=== PATIENT | male | born 1930 | race Caucasian/White ===

== ENCOUNTER 2016-04-21 13:03 | Emergency (ER) | payer MEDICARE, OTHER ==
[~2016-04-21] VITALS: Ht 162.6 cm; Wt 75.0 kg
[2016-04-21 13:05] VITALS: BP 209/98; PULSE 78; RESP 16; TEMP 98.1; O2SAT 98
[2016-04-21] MEDS ORDERED: METF500T PO (15:38)
[2016-04-21] MEDS ORDERED: LISI10TA3 PO (15:38)
[2016-04-21] MEDS ORDERED: SIMV20TA PO (15:38)
[2016-04-21] MEDS ORDERED: SODIUM CHLORIDE 0.9% FLUSH 5 ML FLUSH IVF PRN (17:00)
--- NOTE | 2016-04-21 17:04 | PD ---
HPI Chief Complaint: Pain: Acute or Chronic Time Seen by Provider: 16:53 Travel History International Travel<30 days: No Contact w/Intl Traveler<30days: No Traveled to known affect area: No History of Present Illness HPI Patient is an 85-year-old male who is Mohawk-speaking only patient with a history of NIDDM, hypertension, HLD and possible CVA brought by his daughter presenting with 2 month history of neck and back pain. He feels like he has pain at the base of his skull/top of his neck but intermittently shoots down his entire back. Sometimes it radiates into the buttocks on either side and down the posterior leg to about the knee. This can last for several minutes. Pain is sharp, shooting sometimes burning. It is alleviated by walking, some twisting and bending motions do seem to make it worse. He denies trauma and injury. The patient has not taken any medicines in attempts to palliate and has not seen his PCP, Dr. Santana, for this complaint. He denies bowel or bladder dysfunction, saddle anesthesia, weakness in all 4 extremities. Occasional paresthesias in the feet bilaterally. He denies chest pain, shortness of breath, cough, fever and wheezing. Denies headache and syncope. He occasionally has a nonspecific dizziness when waking in the morning before taking his blood pressure medications which resolves. Denies a history of CAD. He has a mass on the posterior left occiput since and was told it is benign. He refuses cell changer, prefers to have his daughter translate. PFSH Past Medical History High Cholesterol: Yes Diabetes: Yes Patient Takes Glucophage: Yes Hypertension: Yes Influenza Vaccination: Yes Social History Alcohol Use: No Tobacco Use: No Substance Use: No Allergies-Medications (Allergen,Severity, Reaction): Coded Allergies: No Known Allergies (Unverified , 04/21/16) Reported Meds & Prescriptions Reported Meds & Active Scripts Active Robaxin (Methocarbamol) 500 Mg Tab 500 Mg PO TID PRN Reported Lisinopril Unknown Strength Tab Unknown Dose PO DAILY Simvastatin Unknown Strength Tab Unknown Dose PO DAILY Metformin (Metformin HCl) Unknown Strength Tab Unknown Dose PO BIDPC With meals Review of Systems General / Constitutional: No: Fever, Chills Eyes: No: Blurred Vision, Pain HENT: Positive: Lightheadedness, Neck Pain, Masses (left occiput, chronic), No : Headaches, Vertigo, Sore Throat, Neck Stiffness, Earache Cardiovascular: No: Chest Pain or Discomfort, Palpitations, Tachycardia, Syncope, Dyspnea on exertion, Edema, Claudication Respiratory: No: Cough, Shortness of Breath, Wheezing, Orthopnea Gastrointestinal: No: Nausea, Vomiting, Abdominal Pain, Constipation, Changes in Bowel Habits Genitourinary: No: Incontinence Musculoskeletal: Positive: Myalgias (per the history of present illness), Pain (neck and back), No: Arthralgias, Limited ROM, Weakness, Edema Skin: No Rash Neurologic: Positive: Dizziness, Paresthesia (bilateral feet, intermittent), No: Weakness, Syncope, Focal Abnormalities, Coordination Problem, Tremor, Headache, Change in Mentation, Slurred Speech, Seizures, Sensory Disturbance Physical Exam Narrative GENERAL: Well-developed and well-nourished adult male in no acute distress. SKIN: Warm and dry. Good turgor without tenting. HEAD: Normocephalic and atraumatic. 4 cm well-circumscribed soft slightly mobile mass in the left occiput without erythema, induration or warmth or tenderness. EYES: PERRL bilaterally, 5mm. EOMI bilaterally. No injection or icterus present. No proptosis. Lids without edema or erythema. ENT: Buccal mucosa pink and moist. Oropharynx free of erythema, tonsillar hypertrophy, masses, swelling, asymmetry and exudates. Uvula midline and airway patent. NECK: Supple, no midline tenderness, crepitus or step-offs. Trachea midline, no JVD. No cervical or facial lymphadenopathy. CARDIOVASCULAR: Regular rate and rhythm without murmurs, rubs, clicks or gallops. Radial and posterior tibial pulses 2+ bilaterally. No pedal edema. RESPIRATORY: Clear to auscultation bilaterally with symmetrical rise and fall, no distress or use of accessory muscles. GASTROINTESTINAL: Non-tender, non-distended. Normal bowel sounds all 4 quadrants. No masses or organomegaly present. MUSCULOSKELETAL: Evaluation of the thoracic, lumbar and sacral spine reveals no edema or discoloration or skin lesions. No thoracic, lumbar, sacral or paraspinous tenderness to palpation. No gait disturbances. Patient freely moving all four extremities spontaneously. Extremities without clubbing, cyanosis, or edema. No obvious deformities. NEUROLOGIC: CN II-XII grossly intact. Awake and alert. Negative Romberg test. Strength 5/5 bilateral shoulder flexion, shoulder extension, shoulder abduction , shoulder adduction, elbow flexion, elbow extension. Sensation intact and strength 5/5 over radial, median, and ulnar nerve distributions bilaterally.Sensation intact L2-S2 bilaterally. Strength 5/5 in hip flexion, hip extension, knee flexion, knee extension, plantar flexion, dorsiflexion bilaterally. Bilateral triceps, biceps, brachioradialis DTRs 1+; patellar and Achilles DTRs 2+. Negative bilateral Loraine sign. Downgoing Babinskis bilaterally. Normal speech. PSYCHIATRIC: Appropriate mood and affect. Data Data Last Documented VS Vital Signs Date Time Temp Pulse Resp B/P Pulse Ox O2 Delivery O2 Flow Rate FiO2 04/21/16 18:46 18 04/21/16 18:46 63 189/87 99 Room Air 181/83 04/21/16 13:05 98.1 Orders Electrocardiogram (04/21/16 16:48) Ckmb (Isoenzyme) Profile (04/21/16 16:48) Complete Blood Count With Diff (04/21/16 16:48) Comprehensive Metabolic Panel (04/21/16 16:48) Magnesium (Mg) (04/21/16 16:48) Prothrombin Time / Inr (Pt) (04/21/16 16:48) Act Partial Throm Time (Ptt) (04/21/16 16:48) Troponin I (04/21/16 16:48) Ecg Monitoring (04/21/16 16:48) Bilateral Bp Monitoring (04/21/16 16:48) Oximetry (04/21/16 16:48) Sodium Chloride 0.9% Flush (Ns Flush) (04/21/16 17:00) Chest, Pa & Lat (04/21/16 16:48) Creatine Kinase (Cpk) (04/21/16 16:48) Ct Brain W/O Iv Contrast(Rout) (04/21/16 16:48) Ct Cerv Spine W/O Contrast (04/21/16 16:48) Labs Laboratory Tests Test 04/21/16 17:25 White Blood Count 6.4 TH/MM3 Red Blood Count 4.92 MIL/MM3 Hemoglobin 15.6 GM/DL Hematocrit 45.9 % Mean Corpuscular Volume 93.2 FL Mean Corpuscular Hemoglobin 31.7 PG Mean Corpuscular Hemoglobin 34.1 % Concent Red Cell Distribution Width 13.4 % Platelet Count 204 TH/MM3 Mean Platelet Volume 7.4 FL Neutrophils (%) (Auto) 51.3 % Lymphocytes (%) (Auto) 35.0 % Monocytes (%) (Auto) 8.1 % Eosinophils (%) (Auto) 5.0 % Basophils (%) (Auto) 0.6 % Neutrophils # (Auto) 3.3 TH/MM3 Lymphocytes # (Auto) 2.3 TH/MM3 Monocytes # (Auto) 0.5 TH/MM3 Eosinophils # (Auto) 0.3 TH/MM3 Basophils # (Auto) 0.0 TH/MM3 CBC Comment DIFF FINAL Differential Comment Prothrombin Time 10.2 SEC Prothromb Time International 0.9 RATIO Ratio Activated Partial 26.1 SEC Thromboplast Time Sodium Level 136 MEQ/L Potassium Level 4.0 MEQ/L Chloride Level 102 MEQ/L Carbon Dioxide Level 27.4 MEQ/L Anion Gap 7 MEQ/L Blood Urea Nitrogen 11 MG/DL Creatinine 0.83 MG/DL Estimat Glomerular Filtration 88 ML/MIN Rate Random Glucose 178 MG/DL Calcium Level 9.0 MG/DL Magnesium Level 2.0 MG/DL Total Bilirubin 0.5 MG/DL Aspartate Amino Transf 16 U/L (AST/SGOT) Alanine Aminotransferase 23 U/L (ALT/SGPT) Alkaline Phosphatase 100 U/L Total Creatine Kinase 74 U/L Troponin I LESS THAN 0.02 NG/ML Total Protein 8.9 GM/DL Albumin 4.3 GM/DL MDM Medical Decision Making Medical Screen Exam Complete: Yes Emergency Medical Condition: Yes Interpretation(s) Laboratory Tests Test 04/21/16 17:25 White Blood Count 6.4 TH/MM3 (4.0-11.0) Red Blood Count 4.92 MIL/MM3 (4.50-5.90) Hemoglobin 15.6 GM/DL (13.0-17.0) Hematocrit 45.9 % (39.0-51.0) Mean Corpuscular Volume 93.2 FL (80.0-100.0) Mean Corpuscular Hemoglobin 31.7 PG (27.0-34.0) Mean Corpuscular Hemoglobin 34.1 % Concent (32.0-36.0) Red Cell Distribution Width 13.4 % (11.6-17.2) Platelet Count 204 TH/MM3 (150-450) Mean Platelet Volume 7.4 FL (7.0-11.0) Neutrophils (%) (Auto) 51.3 % (16.0-70.0) Lymphocytes (%) (Auto) 35.0 % (9.0-44.0) Monocytes (%) (Auto) 8.1 % (0.0-8.0) Eosinophils (%) (Auto) 5.0 % (0.0-4.0) Basophils (%) (Auto) 0.6 % (0.0-2.0) Neutrophils # (Auto) 3.3 TH/MM3 (1.8-7.7) Lymphocytes # (Auto) 2.3 TH/MM3 (1.0-4.8) Monocytes # (Auto) 0.5 TH/MM3 (0-0.9) Eosinophils # (Auto) 0.3 TH/MM3 (0-0.4) Basophils # (Auto) 0.0 TH/MM3 (0-0.2) CBC Comment DIFF FINAL Differential Comment Prothrombin Time 10.2 SEC (9.8-11.6) Prothromb Time International 0.9 RATIO Ratio Activated Partial 26.1 SEC Thromboplast Time (24.3-30.1) Sodium Level 136 MEQ/L (136-145) Potassium Level 4.0 MEQ/L (3.5-5.1) Chloride Level 102 MEQ/L (98-107) Carbon Dioxide Level 27.4 MEQ/L (21.0-32.0) Anion Gap 7 MEQ/L (5-15) Blood Urea Nitrogen 11 MG/DL (7-18) Creatinine 0.83 MG/DL (0.60-1.30) Estimat Glomerular Filtration 88 ML/MIN (>89) Rate Random Glucose 178 MG/DL (74-106) Calcium Level 9.0 MG/DL (8.5-10.1) Magnesium Level 2.0 MG/DL (1.5-2.5) Total Bilirubin 0.5 MG/DL (0.2-1.0) Aspartate Amino Transf 16 U/L (15-37) (AST/SGOT) Alanine Aminotransferase 23 U/L (12-78) (ALT/SGPT) Alkaline Phosphatase 100 U/L (45-117) Total Creatine Kinase 74 U/L (39-308) Troponin I LESS THAN 0.02 NG/ML (0.02-0.05) Total Protein 8.9 GM/DL (6.4-8.2) Albumin 4.3 GM/DL (3.4-5.0) Last [address] 04/21/161647 Signed Impressions: Service Date/Time: Thursday, April 21, 2016 17:28 - CONCLUSION: Unremarkable exam for age. Danial Estes MD Chest X-Ray 04/21/161647 Signed Impressions: Service Date/Time: Thursday, April 21, 2016 17:05 - CONCLUSION: Numerous tiny nodular opacities in both lungs. The differential diagnosis includes granulomatous disease. Metastatic disease is less likely. Danial Estes MD Cervical Spine CT 04/21/161647 Signed Impressions: Service Date/Time: Thursday, April 21, 2016 17:28 - CONCLUSION: 1. 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 2. Advanced degenerative changes at C3/4, C4/5, C5/6 and C6/7. 3. No acute fracture is seen. 4. Individual levels are dictated in detail above. Yaakov Ochoa MD Differential Diagnosis Back strain versus muscle spasm versus DDD versus HNP versus MS versus ACS versus CVA versus aortic dissection Narrative Course Workup was initiated in triage. Once a medical bed becomes available patient will be transferred and care will be assumed by the next provider. Patient is an 85-year-old male with a history of NIDDM, hypertension, hyperlipidemia and possible CVA in the past presenting with 2 month history of pain from the base of his skull radiating down the entire back and into the legs. It is never both legs the same time but will otherwise be in the left or right. He has some intermittent paresthesias in his feet. No focal deficits by history or physical, neurovascularly intact. He is resting comfortably and currently has no symptoms. No tenderness with palpation. He expresses relief with activity, no prior workup or OTC medications for this. This most likely is musculoskeletal although it has been on odd presentation. Discussed with Dr. Chino who agrees workup for ACS, metabolic disturbance and obtaining CT of the head and C-spine is appropriate for initial workup and patient can be reevaluated and medical bed. Patient was transferred to a medical bed and the workup was completed. EKG shows sinus rhythm with rate of 59. Normal intervals and axis. Slight T-wave flattening in V6 but otherwise unremarkable. CBC unremarkable, metabolic panel shows creatinine 0.83, glucose 178, troponin less than 0.02, protein 8.9. Chest x-ray shows numerous tiny nodular opacities in both lungs, differential includes granulomatous disease versus metastatic disease which is less likely. The patient did stop smoking at the age of 37 but lived in [place] for many years , no history of TB. CT of the brain unremarkable. CT of the C-spine shows a Klippel-Feil deformity with congenital fusion at the C2 and 3 level with straightening of the cervical lordosis. There are advanced degenerative changes at multiple levels lower in the C-spine with broad-based disc bulging eccentric towards the right at C4 and 5. Interestingly the patient has no upper extremity symptoms. As previous he stated he has neurovascularly intact. On further discussion he states that the symptoms occur mainly at night when he is lying flat and when he gets up and walks they improved. His symptoms do not occur otherwise. I spoke with the radiologist Dr. Ochoa who states that there is no significant stenosis at C2-C3 level. Shift change had occurred and I discussed the patient with Dr. Zamora who also examined the patient. We discussed all findings and she agrees that he is neurovascularly intact and should have muscle relaxant therapy and follow-up with his PCP on Sunday for both the neck/back pain and lung nodules. She states although there is no personal history of TB being from [place] he likely has had exposure and developed granulomatous as a response. Either way he will follow up outpatient and have CT performed. Patient given prescription for Robaxin and recommended rest, heat therapy.See discharge paperwork for further instructions. The plan was discussed with the patient who acknowledged their understanding and agreement. Reinforced the follow-up with primary care is critically important. Patient instructed on emergent conditions that should prompt return to ED. Diagnosis Primary Impression: Neck pain Additional Impressions: Back pain Qualified Code: M54.9 - Acute bilateral back pain, unspecified back location Klippel-Feil deformity Lung nodule, multiple Patient Instructions: Back Pain (ED), General Instructions, Neck Pain (ED) Additional Instructions: Rest for 24 hours, then gradually resume normal activity Avoid maneuvers or positions that aggravate the pain Avoid twisting/bending or lifting heavy items Take medications as prescribed Your medications may cause drowsiness. Do not take with alcohol or sedatives. Do not operate a motor vehicle or heavy machinery while on medication. Warm, moist heat applied to painful areas hourly as needed Try to massage and stretch affected muscles after applying heat to speed recovery Follow-up with PCP in 2-3 days to check on progress and discuss additional imaging including MRI for the neck and CT for the lung nodules Return to ED for any acute worsening of symptoms including weakness or numbness or loss of bowel or bladder control Med/Other Pt SpecificInfo: Prescription(s) given Scripts Methocarbamol (Robaxin)500 Mg [id number] Mg PO TID PRN (SPASM) #15 TAB Ref 0 Prov:Britni Zamora MD 04/21/16 Disposition: 01 DISCHARGE HOME Condition: Stable Jose Morgan III Apr 21, 2016 17:04
--- NOTE | 2016-04-21 17:18 | RADRPT ---
EXAM DATE/TIME: 04/21/2016 17:05 [facility] COMPARISON: No previous studies available for comparison. INDICATIONS : Chest pain for 2 days with no known injury MEDICAL HISTORY : None. SURGICAL HISTORY : None. ENCOUNTER: Initial ACUITY: 2 days PAIN SCORE: 6/10 LOCATION: Bilateral chest FINDINGS: PA and lateral views of the chest were obtained. Both views are Midinspiratory with crowding of the l arnoldo vasculature. There is no focal consolidation. There are numerous subtle nodular opacities in both lungs. The heart size is at the upper limits of normal with no perihilar edema. The bony thorax is i ntact. CONCLUSION: Numerous tiny nodular opacities in both lungs. The differential diagnosis includes gr anulomatous disease. Metastatic disease is less likely. Danial Estes MD on April 21, 2016 at 17:15 Board Certified Radiologist. This report was verified electronically.
--- NOTE | 2016-04-21 17:35 | RADRPT ---
EXAM DATE/TIME: 04/21/2016 17:28 [facility] COMPARISON: No previous studies available for comparison. INDICATIONS : Posterior cephalgia for 2 months. RADIATION DOSE: 33.26 CTDIvol (mGy) MEDICAL HISTORY : Hypertension. SURGICAL HISTORY : None. ENCOUNTER: Initial ACUITY: 2 months PAIN SCALE: 6/10 LOCATION: cranial Posterior TECHNIQUE: Multiple contiguous axial images were obtained of the head. Using automated exposure control and adj ustment of the mA and/or kV according to patient size, radiation dose was kept as low as reasonably a chievable to obtain optimal diagnostic quality images. FINDINGS: CEREBRUM: The ventricles are normal for age. No evidence of midline shift, mass lesion, hemorrhage or acute in farction. No extra-axial fluid collections are seen. POSTERIOR FOSSA: The cerebellum and brainstem are intact. The 4th ventricle is midline. The cerebellopontine angle i s unremarkable. EXTRACRANIAL: The visualized portion of the orbits is intact. SKULL: The calvaria is intact. No evidence of skull fracture. CONCLUSION: Unremarkable exam for age. Danial Estes MD on April 21, 2016 at 17:33 Board Certified Radiologist. This report was verified electronically.
--- NOTE | 2016-04-21 17:55 | RADRPT ---
EXAM DATE/TIME: 04/21/2016 17:28 [facility] COMPARISON: No previous studies available for comparison. INDICATIONS : Posterior cephalgia for 2 months. RADIATION DOSE: 18.74 CTDIvol (mGy) MEDICAL HISTORY : Hypertension. SURGICAL HISTORY : None. ENCOUNTER: Initial ACUITY: 2 months PAIN SCALE: 5/10 LOCATION: neck TECHNIQUE: Volumetric scanning of the cervical spine was performed. Multiplanar reconstructions in the sagittal, coronal and oblique axial planes were performed. Using automated exposure control and adjustment o f the mA and/or kV according to patient size, radiation dose was kept as low as reasonably achievable to obtain optimal diagnostic quality images. FINDINGS: The examination demonstrates congenital fusion of the C2/3 disc level. There is mild straightening of the normal cervical curve. There are degenerated disc at C3/4, C4/5, C5/6 and C6/7. No acute fractur e is seen. C2-C3: There is Klippel-Feil deformity with congenital fusion across this level. C3-C4: There is a degenerated disc with mild osteophytic ridging and a small disc bulge. The thecal space an d neural foramina are adequate. C4-C5: There is a degenerated disc with diffuse osteophytic ridging from the vertebral endplate. There is a small broad-based disc bulge eccentric towards the right. There is encroachment of the center on the lateral recess on the right. The foramen on the left is adequate. The residual thecal space is narrow ed but adequate. C5-C6: There is a degenerated disc with mild osteophytic ridging. The thecal space and foramina appear adequ ate. There is facet arthritis bilaterally. C6-C7: There is a degenerated disc with mild osteophytic ridging. There is mild facet arthritis bilaterally. The thecal space and neural foramina are adequate. C7-T1: The bony spinal canal is normal in size. No evidence of disc bulge or herniation. The neural forami na are bilaterally patent. CONCLUSION: 1. 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 2. Advanced degenerative changes at C3/4, C4/5, C5/6 and C6/7. 3. No acute fracture is seen. 4. Individual levels are dictated in detail above. Yaakov Ochoa MD on April 21, 2016 at 17:49 Board Certified Radiologist. This report was verified electronically.
[2016-04-21 18:11] LABS: ALT (GPT) 23 U/L (12-78); ANION GAP 7 MEQ/L (5-15); AST (GOT) 16 U/L (15-37); BICARBONATE 27.4 MEQ/L (21.0-32.0); BLOOD UREA NITROGEN 11 MG/DL (7-18); CHLORIDE 102 MEQ/L (98-107); GLOMERULAR FILTRATION RATE 88 ML/MIN (>89); SODIUM (NA) 136 MEQ/L (136-145)
[2016-04-21 18:15] LABS: ALKALINE PHOSPHATASE 100 U/L (45-117); TOTAL BILIRUBIN ADULT 0.5 MG/DL (0.2-1.0)
[2016-04-21 18:16] LABS: AUTOMATED NEUTROPHIL # 3.3 TH/MM3 (1.8-7.7); BASOPHIL % 0.6 % (0.0-2.0); EOSINOPHIL # 0.3 TH/MM3 (0-0.4); HEMATOCRIT 45.9 % (39.0-51.0); HEMO FLAGS DIFF FINAL; LYMPHOCYTE # 2.3 TH/MM3 (1.0-4.8); MEAN CELL VOLUME 93.2 FL (80.0-100.0); MEAN CORPUSCULAR HEMOGLOBIN 31.7 PG (27.0-34.0); MEAN CORPUSCULAR HGB CONC 34.1 % (32.0-36.0); MONO % 8.1 % (0.0-8.0); NEUT % 51.3 % (16.0-70.0); PLATELET COUNT 204 TH/MM3 (150-450); RED BLOOD COUNT 4.92 MIL/MM3 (4.50-5.90); RED CELL DISTRIBUTION WIDTH 13.4 % (11.6-17.2); WHITE BLOOD COUNT 6.4 TH/MM3 (4.0-11.0)
[2016-04-21 18:19] LABS: CREATINE KINASE 74 U/L (39-308)
[2016-04-21 18:26] LABS: APTT (PATIENT) 26.1 SEC (24.3-30.1); INTERNATIONAL NORMALIZED RATIO 0.9 RATIO; PROTHROMBIN TIME - PATIENT 10.2 SEC (9.8-11.6)
[2016-04-21 18:45] VITALS: RESP 18; O2SAT 98
[2016-04-21 18:46] VITALS: BP_SYST 181; BP_SYST 189; BP_DIAS 83; BP_DIAS 87; PULSE 63; RESP 18; O2SAT 99
[2016-04-21] MEDS ORDERED: ROBA500T PO (18:56)
--- NOTE | 2016-04-21 19:56 | PD ---
Physical Exam Date Seen by Provider: Apr 21, 2016 Narrative Patient was seen along with the PA for mid and upper back pain. Data Data Last Documented VS Vital Signs Date Time Temp Pulse Resp B/P Pulse Ox O2 Delivery O2 Flow Rate FiO2 04/21/16 18:46 18 04/21/16 18:46 63 189/87 99 Room Air 181/83 04/21/16 13:05 98.1 Orders Electrocardiogram (04/21/16 16:48) Ckmb (Isoenzyme) Profile (04/21/16 16:48) Complete Blood Count With Diff (04/21/16 16:48) Comprehensive Metabolic Panel (04/21/16 16:48) Magnesium (Mg) (04/21/16 16:48) Prothrombin Time / Inr (Pt) (04/21/16 16:48) Act Partial Throm Time (Ptt) (04/21/16 16:48) Troponin I (04/21/16 16:48) Ecg Monitoring (04/21/16 16:48) Bilateral Bp Monitoring (04/21/16 16:48) Oximetry (04/21/16 16:48) Sodium Chloride 0.9% Flush (Ns Flush) (04/21/16 17:00) Chest, Pa & Lat (04/21/16 16:48) Creatine Kinase (Cpk) (04/21/16 16:48) Ct Brain W/O Iv Contrast(Rout) (04/21/16 16:48) Ct Cerv Spine W/O Contrast (04/21/16 16:48) Labs Laboratory Tests Test 04/21/16 17:25 White Blood Count 6.4 TH/MM3 Red Blood Count 4.92 MIL/MM3 Hemoglobin 15.6 GM/DL Hematocrit 45.9 % Mean Corpuscular Volume 93.2 FL Mean Corpuscular Hemoglobin 31.7 PG Mean Corpuscular Hemoglobin 34.1 % Concent Red Cell Distribution Width 13.4 % Platelet Count 204 TH/MM3 Mean Platelet Volume 7.4 FL Neutrophils (%) (Auto) 51.3 % Lymphocytes (%) (Auto) 35.0 % Monocytes (%) (Auto) 8.1 % Eosinophils (%) (Auto) 5.0 % Basophils (%) (Auto) 0.6 % Neutrophils # (Auto) 3.3 TH/MM3 Lymphocytes # (Auto) 2.3 TH/MM3 Monocytes # (Auto) 0.5 TH/MM3 Eosinophils # (Auto) 0.3 TH/MM3 Basophils # (Auto) 0.0 TH/MM3 CBC Comment DIFF FINAL Differential Comment Prothrombin Time 10.2 SEC Prothromb Time International 0.9 RATIO Ratio Activated Partial 26.1 SEC Thromboplast Time Sodium Level 136 MEQ/L Potassium Level 4.0 MEQ/L Chloride Level 102 MEQ/L Carbon Dioxide Level 27.4 MEQ/L Anion Gap 7 MEQ/L Blood Urea Nitrogen 11 MG/DL Creatinine 0.83 MG/DL Estimat Glomerular Filtration 88 ML/MIN Rate Random Glucose 178 MG/DL Calcium Level 9.0 MG/DL Magnesium Level 2.0 MG/DL Total Bilirubin 0.5 MG/DL Aspartate Amino Transf 16 U/L (AST/SGOT) Alanine Aminotransferase 23 U/L (ALT/SGPT) Alkaline Phosphatase 100 U/L Total Creatine Kinase 74 U/L Troponin I LESS THAN 0.02 NG/ML Total Protein 8.9 GM/DL Albumin 4.3 GM/DL MDM Supervised Visit with [facility]: Yes Narrative Course I, Dr. Zamora, have reviewed the advance practice practitioner's documentation and am in agreement, met with the patient face to face, made the diagnosis, and the medical decision making was done by me. *My assessment and Findings: The patient is awake and alert. He has full and equal muscle strength in all muscle groups. Diagnosis Primary Impression: Neck pain Additional Impressions: Lung nodule, multiple Back pain Qualified Code: M54.9 - Acute bilateral back pain, unspecified back location Klippel-Feil deformity Patient Instructions: General Instructions, Back Pain (ED), Neck Pain (ED) Departure Forms: Tests/Procedures Additional Instruction: Rest for 24 hours, then gradually resume normal activity Avoid maneuvers or positions that aggravate the pain Avoid twisting/bending or lifting heavy items Take medications as prescribed Your medications may cause drowsiness. Do not take with alcohol or sedatives. Do not operate a motor vehicle or heavy machinery while on medication. Warm, moist heat applied to painful areas hourly as needed Try to massage and stretch affected muscles after applying heat to speed recovery Follow-up with PCP in 2-3 days to check on progress and discuss additional imaging including MRI for the neck and CT for the lung nodules Return to ED for any acute worsening of symptoms including weakness or numbness or loss of bowel or bladder control Scripts Methocarbamol (Robaxin)500 Mg [id number] Mg PO TID PRN (SPASM) #15 TAB Ref 0 Prov:Britni Zamora MD 04/21/16 Disposition: 01 DISCHARGE HOME Condition: Stable Britni Zamora MD Apr 21, 2016 19:56
--- NOTE | 2016-04-22 16:24 | EKG ---
Date Performed: 04/21/2016 Time Performed: 17:43:40 PTAGE: 85 years EKG: SINUS BRADYCARDIA NONSPECIFIC T-WAVE ABNORMALITY BORDERLINE ECG NO PREVIOUS TRACING DOCTOR: Med Barker Interpretating Date/Time 04/22/2016 16:22:08
== END 2016-04-21 20:36 | disposition home or self-care (01) ==
LOC: NEPC 13:03
DX: M54.9 Dorsalgia, unspecified (principal); Q89.9 Congenital malformation, unspecified; I10 Essential (primary) hypertension; E11.9 Type 2 diabetes mellitus without complications; E78.00 Pure hypercholesterolemia, unspecified; R94.31 Abnormal electrocardiogram [ECG] [EKG]
CPT/HCPCS: 70450; 71020; 72125; 80053; 82550; 83735; 84484; 85025; 85610; 85730; 93005

== ENCOUNTER 2016-12-24 17:37 | Inpatient (IN) | payer MEDICARE, OTHER ==
[~2016-12-24] VITALS: Ht 167.6 cm; Wt 72.5 kg
[~2016-12-24 17:37] MED LIST: LISI10TA3 PO; MEDR4PAK PO; METF500T PO; NAPR500 PO; SIMV20TA PO
[2016-12-24 17:38] VITALS: BP 173/81; PULSE 79; RESP 18; TEMP 98.4; O2SAT 96
[2016-12-24 18:10] VITALS: RESP 16; O2SAT 100
[2016-12-24 18:42] LABS: AUTOMATED NEUTROPHIL # 5.1 TH/MM3 (1.8-7.7); BASOPHIL % 0.4 % (0.0-2.0); EOSINOPHIL # 0.3 TH/MM3 (0-0.4); EOSINOPHIL % 3.4 % (0.0-4.0); HEMATOCRIT 39.3 % (39.0-51.0); HEMO FLAGS DIFF FINAL; LYMPH % 23.3 % (9.0-44.0); LYMPHOCYTE # 1.9 TH/MM3 (1.0-4.8); MEAN CELL VOLUME 93.9 FL (80.0-100.0); MEAN CORPUSCULAR HEMOGLOBIN 32.3 PG (27.0-34.0); MEAN CORPUSCULAR HGB CONC 34.4 % (32.0-36.0); MONO % 8.4 % (0.0-8.0); NEUT % 64.5 % (16.0-70.0); PLATELET COUNT 200 TH/MM3 (150-450); RED BLOOD COUNT 4.18 MIL/MM3 (4.50-5.90); RED CELL DISTRIBUTION WIDTH 13.8 % (11.6-17.2)
--- NOTE | 2016-12-24 18:49 | RADRPT ---
EXAM DATE/TIME: 12/24/2016 18:43 [facility] COMPARISON: CHEST PA & LAT, April 21, 2016, 17:05. INDICATIONS : Right arm numbness. MEDICAL HISTORY : None. SURGICAL HISTORY : None. ENCOUNTER: Initial ACUITY: 1 day PAIN SCORE: 0/10 LOCATION: Bilateral chest FINDINGS: A single view of the chest demonstrates the lungs to be symmetrically aerated without evidence of mas s, infiltrate or effusion. The stable mild cardiomegaly. Osseous structures are intact. CONCLUSION: 1. Stable mild cardiomegaly. Clear lungs. Lew Ribeiro Jr., MD on December 24, 2016 at 18:47 Board Certified Radiologist. This report was verified electronically.
--- NOTE | 2016-12-24 18:50 | PD ---
HPI Chief Complaint: Numbness/Tingling Time Seen by Provider: 17:56 Travel History International Travel<30 days: No Contact w/Intl Traveler<30days: No Traveled to known affect area: No History of Present Illness HPI Patient is a 86-year-old male with history of diabetes, hypertension, hyperlipidemia who presents to emergency room with complaints of right upper and b/l lower extremity numbness over the past 2 weeks. Patient reports that over the past 2 weeks, he would have episodes of numbness and tingling to his right arm his right lower extremity. Reports that symptoms would last about 2 hours and resolve on its own. Patient reports that these are worse at night though the ongoing throughout the day. Patient denies any headache or dizziness at this time, patient denies any vision changes. Denies any fall or trauma. Denies history of CVA/TIA. Patient reports that at this time, he has slight numbness to his right arm as well as his b/l leg. Patient with no chest pain or shortness breath at this time. PFSH Past Medical History Hx Anticoagulant Therapy: Yes (ASPIRIN) Cardiovascular Problems: Yes High Cholesterol: Yes Cerebrovascular Accident: Yes (2009) Diabetes: Yes Diminished Hearing: No Hypertension: Yes Immunizations Current: Yes Social History Alcohol Use: No Tobacco Use: No (QUIT 40 YEARS AGO) Substance Use: No Allergies-Medications (Allergen,Severity, Reaction): Coded Allergies: No Known Allergies (Unverified , 12/24/16) Reported Meds & Prescriptions Reported Meds & Active Scripts Active Medrol Dosepak (Methylprednisolone) 4 Mg Dspk 4 Mg PO DIRECTED Per Pharmacist direction Naprosyn (Naproxen) 500 Mg Tab 500 Mg PO BID 7 Days Reported Lisinopril Unknown Strength Tab Unknown Dose PO DAILY Simvastatin Unknown Strength Tab Unknown Dose PO DAILY Metformin (Metformin HCl) Unknown Strength Tab Unknown Dose PO BIDPC With meals Review of Systems General / Constitutional: No: Fever Eyes: No: Visual changes HENT: No: Headaches Cardiovascular: No: Chest Pain or Discomfort Respiratory: No: Shortness of Breath Gastrointestinal: No: Abdominal Pain Genitourinary: No: Dysuria Musculoskeletal: No: Pain Skin: No Rash Neurologic: Positive: Focal Abnormalities, Paresthesia, No: Weakness, Dizziness Psychiatric: No: Depression Endocrine: No: Polydipsia Hematologic/Lymphatic: No: Easy Bruising Physical Exam Narrative GENERAL: Mild distress SKIN: Focused skin assessment warm/dry. HEAD: Atraumatic. Normocephalic. EYES: Pupils equal and round. No scleral icterus. No injection or drainage. ENT: No nasal bleeding or discharge. Mucous membranes pink and moist. NECK: Trachea midline. No JVD. CARDIOVASCULAR: Regular rate and rhythm. No murmur appreciated. RESPIRATORY: No accessory muscle use. Clear to auscultation. Breath sounds equal bilaterally. GASTROINTESTINAL: Abdomen soft, non-tender, nondistended. Hepatic and splenic margins not palpable. MUSCULOSKELETAL: No obvious deformities. No clubbing. No cyanosis. No edema. NEUROLOGICAL: Awake and alert. No obvious cranial nerve deficits. Motor grossly within normal limits. Normal speech. CN 2-12 grossly intact with no neurovascular compromise PSYCHIATRIC: Appropriate mood and affect; insight and judgment normal. Data Data Last Documented VS Vital Signs Date Time Temp Pulse Resp B/P (MAP) Pulse Ox O2 Delivery O2 Flow Rate FiO2 12/24/16 18:10 16 100 Room Air 12/24/16 17:38 98.4 79 Orders Orders Complete Blood Count With Diff (12/24/16 18:20) Comprehensive Metabolic Panel (12/24/16 18:20) Ckmb (Isoenzyme) Profile (12/24/16 18:20) Troponin I (12/24/16 18:20) Prothrombin Time / Inr (Pt) (12/24/16 18:20) Act Partial Throm Time (Ptt) (12/24/16 18:20) Urinalysis - C+S If Indicated (12/24/16 18:20) Magnesium (Mg) (12/24/16 18:20) Thyroid Stimulating Hormone (12/24/16 18:20) Chest, Single Ap (12/24/16 18:20) Ct Brain W/O Iv Contrast(Rout) (12/24/16 18:20) Iv Access Insert/Monitor (12/24/16 18:20) Ecg Monitoring (12/24/16 18:20) Oximetry (12/24/16 18:20) Consult Neurosurgery (12/24/16 ) Admit Order (Ed Use Only) (12/24/16 19:10) CKMB (12/24/16 18:30) CKMB% (12/24/16 18:30) Labs Laboratory Tests Test 12/24/16 18:30 White Blood Count 8.0 TH/MM3 Red Blood Count 4.18 MIL/MM3 Hemoglobin 13.5 GM/DL Hematocrit 39.3 % Mean Corpuscular Volume 93.9 FL Mean Corpuscular Hemoglobin 32.3 PG Mean Corpuscular Hemoglobin Concent 34.4 % Red Cell Distribution Width 13.8 % Platelet Count 200 TH/MM3 Mean Platelet Volume 7.3 FL Neutrophils (%) (Auto) 64.5 % Lymphocytes (%) (Auto) 23.3 % Monocytes (%) (Auto) 8.4 % Eosinophils (%) (Auto) 3.4 % Basophils (%) (Auto) 0.4 % Neutrophils # (Auto) 5.1 TH/MM3 Lymphocytes # (Auto) 1.9 TH/MM3 Monocytes # (Auto) 0.7 TH/MM3 Eosinophils # (Auto) 0.3 TH/MM3 Basophils # (Auto) 0.0 TH/MM3 CBC Comment DIFF FINAL Differential Comment Prothrombin Time 10.4 SEC Prothromb Time International Ratio 0.9 RATIO Activated Partial Thromboplast Time 24.3 SEC Blood Urea Nitrogen 17 MG/DL Creatinine 0.81 MG/DL Random Glucose 106 MG/DL Total Protein 7.3 GM/DL Albumin 3.5 GM/DL Calcium Level 8.7 MG/DL Magnesium Level 1.9 MG/DL Alkaline Phosphatase 66 U/L Aspartate Amino Transf (AST/SGOT) 37 U/L Alanine Aminotransferase (ALT/SGPT) 51 U/L Total Bilirubin 0.5 MG/DL Sodium Level 138 MEQ/L Potassium Level 4.5 MEQ/L Chloride Level 107 MEQ/L Carbon Dioxide Level 23.1 MEQ/L Anion Gap 8 MEQ/L Estimat Glomerular Filtration Rate 91 ML/MIN Total Creatine Kinase 123 U/L Creatine Kinase MB 3.1 NG/ML Troponin I LESS THAN 0.02 NG/ML Thyroid Stimulating Hormone 3rd Gen 0.461 uIU/ML MDM Medical Decision Making Medical Screen Exam Complete: Yes Emergency Medical Condition: Yes Medical Record Reviewed: Yes Interpretation(s) Vital Signs Date Time Temp Pulse Resp B/P (MAP) Pulse Ox O2 Delivery O2 Flow Rate FiO2 12/24/16 17:55 16 100 Room Air 12/24/16 17:38 98.4 79 18 173/81 (111) 96 Room Air Differential Diagnosis Differential includes TIA, CVA, arrhythmia, electrolyte abnormality, ich Narrative Course 86-year-old male who presents to emergency room evaluation of intermittent numbness to his right upper extremity as well as his lower extremities. Patient was placed on a monitoring manager upon arrival to the ER. CT head ordered. Lab work including CBC, CMP ordered. Vital Signs Date Time Temp Pulse Resp B/P (MAP) Pulse Ox O2 Delivery O2 Flow Rate FiO2 12/24/16 18:10 16 100 Room Air 12/24/16 17:55 16 100 Room Air 12/24/16 17:38 98.4 79 18 173/81 (111) 96 Room Air CBC & BMP Diagram 12/24/16 18:30 Albumin 3.5, Calcium Level 8.7, Magnesium Level 1.9, Aspartate Amino Transf (AST /SGOT) 37, Alanine Aminotransferase (ALT/SGPT) [address] 12/24/161819 Signed Impressions: Service Date/Time: Saturday, December 24, 2016 18:48 - CONCLUSION: 1. Abnormal edema in the left frontoparietal region associated with a 2 cm hemorrhage most characteristic of a partially hemorrhagic infarct with localized mass effect and sulcal effacement. No significant midline shift. Balbir Melvin MD Chest X-Ray 12/24/161819 Signed Impressions: Service Date/Time: Saturday, December 24, 2016 18:43 - CONCLUSION: 1. Stable mild cardiomegaly. Clear lungs. Lew Ribeiro Jr., MD CT head shows abnormal edema in the left frontoparietal region associated with a 2 cm hemorrhage most characteristic of a partially hemorrhagic infarct with localized mass effect and sulcal effacement. Patient required admission to the hospital at this time. Call made to neurosurgery to review case. call made to Dr matta for admission - reviewed case - accepts pt to service for admission Critical Care Narrative Aggregate critical care time was 30 minutes. Time to perform other separately billable procedures was not included in the critical care time. My time did not include minutes spent treating any other patients simultaneously or on activities that did not directly contribute to the patient's treatment. The services I provided to this patient were to treat and/or prevent clinically significant deterioration that could result in: , decompensation, decompensation I provided critical care services requiring my management, as noted below: Chart data review, documentation time, medication orders and management, vital sign assessments/reviewing monitor data, ordering and reviewing lab tests, ordering and interpreting/reviewing x-rays and diagnostic studies, care of the patient and discussion of the patient with the admitting physicians. Diagnosis Primary Impression: Intracranial hemorrhage Admitting Information Admitting Physician Requests: Admit Bee Chino DO Dec 24, 2016 18:50
[2016-12-24 19:01] LABS: ALT (GPT) 51 U/L (12-78)
--- NOTE | 2016-12-24 19:01 | RADRPT ---
EXAM DATE/TIME: 12/24/2016 18:48 [facility] COMPARISON: CT BRAIN W/O CONTRAST, April 21, 2016, 17:28. INDICATIONS : Right hand and leg weakness. Tia RADIATION DOSE: 33.70 CTDIvol (mGy) MEDICAL HISTORY : Cerebrovascular disease. Hypertension. Diabetes. Patiwent has a lump on his head. SURGICAL HISTORY : None. ENCOUNTER: Initial ACUITY: 2 weeks PAIN SCALE: 0/10 LOCATION: cranial TECHNIQUE: Multiple contiguous axial images were obtained of the head. Using automated exposure control and adj ustment of the mA and/or kV according to patient size, radiation dose was kept as low as reasonably a chievable to obtain optimal diagnostic quality images. DICOM format image data is available electro nically for review and comparison. FINDINGS: Comparison is April. There is a new 2 cm hemorrhage in the left parietal lobe with some surroundin g edema and mass effect in the left frontoparietal region. Findings are most characteristic of a hemo rrhagic infarct. Right hemisphere demonstrates no acute findings. Ventricular size is stable. No extr a-axial fluid collections are seen to suggest hemorrhage. No acute bony abnormalities. CONCLUSION: 1. Abnormal edema in the left frontoparietal region associated with a 2 cm hemorrhage most characteri stic of a partially hemorrhagic infarct with localized mass effect and sulcal effacement. No signific ant midline shift. Balbir Melvin MD on December 24, 2016 at 18:55 Board Certified Radiologist. This report was verified electronically.
[2016-12-24 19:05] LABS: ANION GAP 8 MEQ/L (5-15); APTT (PATIENT) 24.3 SEC (24.3-30.1); AST (GOT) 37 U/L (15-37); BICARBONATE 23.1 MEQ/L (21.0-32.0); BLOOD UREA NITROGEN 17 MG/DL (7-18); CHLORIDE 107 MEQ/L (98-107); GLOMERULAR FILTRATION RATE 91 ML/MIN (>89); INTERNATIONAL NORMALIZED RATIO 0.9 RATIO; MAGNESIUM 1.9 MG/DL (1.5-2.5); POTASSIUM 4.5 MEQ/L (3.5-5.1); PROTHROMBIN TIME - PATIENT 10.4 SEC (9.8-11.6); SODIUM (NA) 138 MEQ/L (136-145)
[2016-12-24] MEDS ORDERED: MISCELLANEOUS NURSING INFORMATION XX SCH (19:15)
[2016-12-24] MEDS ORDERED: BISACODYL 10 MG SUPP RECTAL PRN (19:15)
[2016-12-24] MEDS ORDERED: ONDANSETRON HCL 4 MG/2 ML VIAL IV PUSH PRN (19:15)
[2016-12-24] MEDS ORDERED: RESP: ALBUTEROL 2.5 MG/IPRATROPIUM 0.5 MG NEB (PRN) INH (19:15)
[2016-12-24] MEDS ORDERED: SENNOSIDES 8.6 MG TAB PO PRN (19:15)
[2016-12-24] MEDS ORDERED: LACTULOSE SYRUP 20 GM/30 ML CUP PO PRN (19:15)
[2016-12-24] MEDS ORDERED: MAGNESIUM HYDROXIDE SUSP 30 ML CUP PO PRN (19:15)
[2016-12-24] MEDS ORDERED: SODIUM CHLORIDE 0.9% FLUSH 10 ML FLUSH IV FLUSH PRN (19:15)
[2016-12-24] MEDS ORDERED: ACETAMINOPHEN 325 MG TAB PO PRN (19:15)
[2016-12-24] MEDS ORDERED: CHLORHEXIDINE GLUCONATE 2 % 1 PACK (2 CLOTHS) TOP PRN (19:15)
[2016-12-24 19:17] VITALS: BP 167/79; PULSE 72; RESP 16; TEMP 98.5; O2SAT 99
--- NOTE | 2016-12-24 19:17 | HHI.HP ---
[facility] Service Critical Care Medicine Primary Care Physician No Primary Care Physician Admission Diagnosis intracranial hemorrhage Diagnosis: Travel History International Travel<30 Days: No Contact w/Intl Traveler <30 Da: No Traveled to Known Affected Are: No History of Present Illness 86-year-old Romansh-speaking male with history of diabetes, hypertension, hyperlipidemia presents with complaints of right upper and b/l lower extremity numbness over the past 2 weeks. Patient reports that over the past 2 weeks, he would have episodes of numbness and tingling to his right arm his right lower extremity. Reports that symptoms would last about 2 hours and resolve on its own. He denies any headache or dizziness at this time, denies any vision changes. Denies any fall or trauma. CT of the head shows abnormal edema in the left frontoparietal region associated with a 2 cm hemorrhage most characteristic of a partially hemorrhagic infarct with localized mass effect and sulcal effacement. No significant midline shift. Review of Systems Constitutional: DENIES: Diaphoretic episodes, Fatigue, Fever, Weight gain, Weight loss, Chills, Dizziness, Change in appetite, Night Sweats Endocrine: DENIES: Heat/cold intolerance, Polydipsia, Polyuria, Polyphagia Eyes: DENIES: Blurred vision, Diplopia, Eye inflammation, Eye pain, Vision loss , Photosensitivity, Double Vision Ears, nose, mouth, throat: DENIES: Tinnitus, Hearing loss, Vertigo, Nasal discharge, Oral lesions, Throat pain, Hoarseness, Ear Pain, Running Nose, Epistaxis, Sinus Pain, Toothache, Odynophagia Respiratory: DENIES: Apneas, Cough, Snoring, Wheezing, Hemoptysis, Sputum production, Shortness of breath Cardiovascular: DENIES: Chest pain, Palpitations, Syncope, Dyspnea on Exertion , PND, Lower Extremity Edema, Orthopnea, Claudication Gastrointestinal: DENIES: Abdominal pain, Black stools, Bloody stools, Constipation, Diarrhea, Nausea, Vomiting, Difficulty Swallowing, Anorexia Genitourinary: DENIES: Sexual dysfunction, Urinary frequency, Urinary incontinence, Urgency, Hematuria, Dysuria, Nocturia, Penile Discharge, Testicular Pain, Testicular Swelling Musculoskeletal: DENIES: Joint pain, Muscle aches, Stiffness, Joint Swelling, Back pain, Neck pain Integumentary: DENIES: Abnormal pigmentation, Nail changes, Pruritus, Rash Hematologic/lymphatic: DENIES: Bruising, Lymphadenopathy Immunologic/allergic: DENIES: Eczema, Urticaria Neurologic: COMPLAINS OF: Abnormal gait, Localized weakness, Paresthesias, Poor Balance, DENIES: Headache, Seizures, Speech Problems, Tremor Psychiatric: DENIES: Anxiety, Confusion, Mood changes, Depression, Hallucinations, Agitation, Suicidal Ideation, Homicidal Ideation, Delusions Past Family Social History Allergies: Coded Allergies: No Known Allergies (Unverified , 12/24/16) Past Medical History Hypertension Dyslipidemia CVA 2009 Diabetes Past Surgical History None Reported Medications Reported Meds & Active Scripts Active Medrol Dosepak (Methylprednisolone) 4 Mg Dspk 4 Mg PO DIRECTED Per Pharmacist direction Naprosyn (Naproxen) 500 Mg Tab 500 Mg PO BID 7 Days Reported Lisinopril Unknown Strength Tab Unknown Dose PO DAILY Simvastatin Unknown Strength Tab Unknown Dose PO DAILY Metformin (Metformin HCl) Unknown Strength Tab Unknown Dose PO BIDPC With meals Active Ordered Medications Current Medications Medications (Trade) Dose Ordered Sig/Jimmy Route PRN Reason Start Time Stop Time Status Last Admin Dose Admin Sodium Chloride (NS Flush) 2 ml UNSCH PRN IV FLUSH FLUSH AFTER USING IV ACCESS 12/24/16 19:15 Sodium Chloride (NS Flush) 2 ml BID IV FLUSH 12/24/16 21:00 12/24/16 20:42 Acetaminophen (Tylenol) 650 mg Q6H PRN PO PAIN 1-5 AND/OR FEVER >101F 12/24/16 19:15 Morphine Sulfate (Morphine Inj) 2 mg Q2H PRN IV PAIN 6-10 12/24/16 19:30 Famotidine (Pepcid Inj) 20 mg Q12HR IV PUSH 12/24/16 21:00 12/24/16 20:50 Ondansetron HCl (Zofran Inj) 4 mg Q6H PRN IV PUSH NAUSEA OR VOMITING 12/24/16 19:15 Albuterol/ Ipratropium (Duoneb Neb) 1 ampule Q2HR NEB PRN INH WHEEZING 12/24/16 19:15 Miscellaneous Information 1 Q361D XX 12/24/16 19:15 Chlorhexidine Gluconate (Chlorhexidine 2% Cloth) 3 pack Taper DAILY@04 TOP 12/25/16 04:00 12/21/17 03:59 Chlorhexidine Gluconate (Chlorhexidine 2% Cloth) 3 pack UNSCH PRN TOP HYGIENIC CARE 12/24/16 19:15 Senna/Docusate Sodium (Dora-Colace) 1 tab BID PO 12/24/16 21:00 12/24/16 20:50 Magnesium Hydroxide (Milk Of Magnesia Liq) 30 ml Q12H PRN PO Mild constipation 12/24/16 19:15 Sennosides (Senokot) 17.2 mg Q12H PRN PO Moderate constipation 12/24/16 19:15 Bisacodyl (Dulcolax Supp) 10 mg DAILY PRN RECTAL SEVERE CONSITIPATION 12/24/16 19:15 Lactulose (Lactulose Liq) 30 ml DAILY PRN PO SEVERE CONSITIPATION 12/24/16 19:15 Dextrose (D50w (Vial) Inj) 50 ml UNSCH PRN IV PUSH HYPOGLYCEMIA-SEE COMMENTS 12/24/16 19:30 Glucagon (Glucagon Inj) 1 mg UNSCH PRN OTHER HYPOGLYCEMIA-SEE COMMENTS 12/24/16 19:30 Insulin Aspart (NovoLOG SUPPLEMENTAL SCALE) 1 ACHS SLIDING SCALE SQ 12/24/16 21:00 Nicardipine HCl 25 mg/Sodium Chloride 250 ml @ 50 mls/hr TITRATE PRN IV Blood pressure management 12/24/16 19:30 Hydralazine HCl (Apresoline Inj) 20 mg Q4H PRN IV PUSH SBP>160, DBP>90 12/24/16 19:30 12/24/16 22:31 Labetalol HCl (Trandate Inj) 10 mg Q4H PRN IV PUSH SBP>160, DBP>90 12/24/16 19:30 Family History No family history significant for coronary artery disease or malignancy Social History Alcohol Use: No Tobacco Use: No (QUIT 40 YEARS AGO) Substance Use: No Physical Exam Vital Signs Vital Signs Date Time Temp Pulse Resp B/P (MAP) Pulse Ox O2 Delivery O2 Flow Rate FiO2 12/24/16 18:10 16 100 Room Air 12/24/16 17:55 16 100 Room Air 12/24/16 17:38 98.4 79 18 173/81 (111) 96 Room Air Physical Exam GENERAL: Well-nourished, well-developed patient. SKIN: Warm and dry. HEAD: Normocephalic. EYES: No scleral icterus. No injection or drainage. NECK: Supple, trachea midline. No JVD or lymphadenopathy. CARDIOVASCULAR: Regular rate and rhythm without murmurs, gallops, or rubs. RESPIRATORY: Breath sounds equal bilaterally. No accessory muscle use. GASTROINTESTINAL: Abdomen soft, non-tender, nondistended. MUSCULOSKELETAL: No cyanosis, or edema. BACK: Nontender without obvious deformity. NEURO EXAM: GCS: M 6 V 5 E 4 Mental Status: The patient is alert and oriented to person, place, and time with normal speech. Cranial Nerves: Visual acuity intact bilaterally. Visual moar normal in all quadrants. Pupils are round, reactive to light. Extraocular movements are intact without ptosis. Hearing is normal bilaterally. Voice is normal. Tongue protrudes midline and moves symmetrically. Reflexes: Biceps, patellar, and Achilles are 2/4 bilaterally. No clonus. Laboratory Laboratory Tests Test 12/24/16 18:30 White Blood Count 8.0 Red Blood Count 4.18 Hemoglobin 13.5 Hematocrit 39.3 Mean Corpuscular Volume 93.9 Mean Corpuscular Hemoglobin 32.3 Mean Corpuscular Hemoglobin Concent 34.4 Red Cell Distribution Width 13.8 Platelet Count 200 Mean Platelet Volume 7.3 Neutrophils (%) (Auto) 64.5 Lymphocytes (%) (Auto) 23.3 Monocytes (%) (Auto) 8.4 Eosinophils (%) (Auto) 3.4 Basophils (%) (Auto) 0.4 Neutrophils # (Auto) 5.1 Lymphocytes # (Auto) 1.9 Monocytes # (Auto) 0.7 Eosinophils # (Auto) 0.3 Basophils # (Auto) 0.0 CBC Comment DIFF FINAL Differential Comment Prothrombin Time 10.4 Prothromb Time International Ratio 0.9 Activated Partial Thromboplast Time 24.3 Blood Urea Nitrogen 17 Creatinine 0.81 Random Glucose 106 Albumin 3.5 Calcium Level 8.7 Magnesium Level 1.9 Aspartate Amino Transf (AST/SGOT) 37 Alanine Aminotransferase (ALT/SGPT) 51 Sodium Level 138 Potassium Level 4.5 Chloride Level 107 Carbon Dioxide Level 23.1 Anion Gap 8 Estimat Glomerular Filtration Rate 91 Result Diagram: 12/24/16182912/24/161829 Imaging Last [address] 12/24/161819 Signed Impressions: Service Date/Time: Saturday, December 24, 2016 18:48 - CONCLUSION: 1. Abnormal edema in the left frontoparietal region associated with a 2 cm hemorrhage most characteristic of a partially hemorrhagic infarct with localized mass effect and sulcal effacement. No significant midline shift. Balbir Melvin MD Chest X-Ray 12/24/16 1820 Signed Impressions: Service Date/Time: Saturday, December 24, 2016 18:43 - CONCLUSION: 1. Stable mild cardiomegaly. Clear lungs. MD Ubaldo Rosales Jr. VTE Risk Assessment Caprinbelgica VTE Risk Assessment: No/Low Risk (score <= 1) Caprini Risk Assessment Model Point Value = 1 Point Value = 2 Point Value = 3 Point Value = 5 Age 41-60 Minor surgery BMI > 25 kg/m2 Swollen legs Varicose veins or History of unexplained or recurrent spontaneous Oral contraceptives or hormone replacement Sepsis (< 1 month) Serious lung disease, including pneumonia (< 1 month) Abnormal pulmonary function Acute myocardial infarction Congestive heart failure (< 1 month) History of inflammatory bowel disease Medical patient at bed rest Age 61-74 Arthroscopic surgery Major open surgery (> 45 min) Laparoscopic surgery (> 45 min) Malignancy Confined to bed (> 72 hours) Immobilizing plaster cast Central venous access Age >= 75 History of VTE Family history of VTE Factor V Leiden Prothrombin [id number] Lupus anticoagulant Anticardiolipin antibodies Elevated serum homocysteine Heparin-induced thrombocytopenia Other congenital or acquired thrombophilia Stroke (< 1 month) Elective arthroplasty Hip, pelvis, or leg fracture Acute spinal cord injury (< 1 month) Prophylaxis Regimen Total Risk Factor Score Risk Level Prophylaxis Regimen 0-1 Low Early ambulation 2 Moderate Order ONE of the following: *Sequential Compression Device (SCD) *Heparin 5000 units SQ BID 3-4 Higher Order ONE of the following medications: *Heparin 5000 units SQ TID *Enoxaparin/Lovenox 40 mg SQ daily (WT < 150 kg, CrCl > 30 mL/min) *Enoxaparin/Lovenox 30 mg SQ daily (WT < 150 kg, CrCl > 10-29 mL/min) *Enoxaparin/Lovenox 30 mg SQ BID (WT < 150 kg, CrCl > 30 mL/min) AND/OR *Sequential Compression Device (SCD) 5 or more Highest Order ONE of the following medications: *Heparin 5000 units SQ TID (Preferred with Epidurals) *Enoxaparin/Lovenox 40 mg SQ daily (WT < 150 kg, CrCl > 30 mL/min) *Enoxaparin/Lovenox 30 mg SQ daily (WT < 150 kg, CrCl > 10-29 mL/min) *Enoxaparin/Lovenox 30 mg SQ BID (WT < 150 kg, CrCl > 30 mL/min) AND *Sequential Compression Device (SCD) Assessment and Plan Assessment and Plan Intracranial bleed - No surgical intervention indicated - Blood pressure control - Supportive care - Monitor neuro checks in the unit - Repeat CT head 24 hours - PT and OT eval and treat as tolerated Hypertension - Nicardipine drip - Labetalol and hydralazine when necessary to keep SBP less than 150 Diabetes - Hold metformin while in the ICU - Insulin sliding scale Dyslipidemia - Atorvastatin DVT GI prophylaxis - Teds SCDs - No pharmacological DVT prophylaxis due to ICH - Pepcid Critical Care: The total critical care time was 35 minutes. Time to perform other separately billable procedures was not included in the critical care time. Rashid Tucker MD Dec 24, 2016 19:17
[2016-12-24] MEDS ORDERED: LABETALOL HCL 100 MG/20 ML VIAL IV PUSH PRN (19:30)
[2016-12-24] MEDS ORDERED: niCARdipine INJ 25 MG in SODIUM CHLOR 0.9% 250 ML INJ 240 ML IV PRN (19:30)
[2016-12-24] MEDS ORDERED: MORPHINE SULFATE 2 MG/ML INJ IV PRN (19:30)
[2016-12-24] MEDS ORDERED: DEXTROSE 50% IN WATER 50 ML VIAL(D50) IV PUSH PRN (19:30)
[2016-12-24] MEDS ORDERED: GLUCAGON 1 MG/ML VIAL OTHER PRN (19:30)
[2016-12-24 19:41] LABS: ALKALINE PHOSPHATASE 66 U/L (45-117); CREATINE KINASE 123 U/L (39-308); TOTAL BILIRUBIN ADULT 0.5 MG/DL (0.2-1.0)
[2016-12-24 19:53] LABS: CKMB 3.1 NG/ML (0.5-3.6)
[2016-12-24] MEDS: SODIUM CHLORIDE 0.9% FLUSH 10 ML FLUSH IV FLUSH SCH (20:42)
[2016-12-24] MEDS: INSULIN ASPART SUPPLEMENTAL SCALE SQ SCH (20:43)
[2016-12-24] MEDS: DOCUSATE SODIUM 50 MG/SENNA 8.6 MG TAB PO SCH (20:50)
[2016-12-24] MEDS: FAMOTIDINE 20 MG/2 ML VIAL IV PUSH SCH (20:50)
[2016-12-24 21:09] VITALS: BP_SYST 157; BP_SYST 169; BP_DIAS 72; PULSE 68; RESP 17; O2SAT 99
--- NOTE | 2016-12-24 21:23 | PD.CONS ---
[facility] Service neurosurgery Consult Requested By Anna Marie Chino Reason for Consult Hemorrhagic lesion Primary Care Physician Viral Lundy M.D. History of Present Illness This is a 86-year-old [place] male with history of diabetes mellitus, hypertension, hyperlipidemia who presents with complaints of right upper extremity weakness and bilateral lower extremity numbness over the past 2 weeks. He reports that over the past 2 weeks, he would have episodes of numbness and tingling to his right arm his right lower extremity. Reports that symptoms would last about 2 hours and resolve on its own. He denies any headache or dizziness at this time, denies any vision changes. Denies any fall or trauma. CT of the head shows abnormal edema in the left frontoparietal region associated with a 2 cm hemorrhage most characteristic of a partially hemorrhagic infarct with localized mass effect and sulcal effacement. No significant midline shift. Neurosurgical consultation has been requested Physical Exam Physical Exam Vital Signs Vital Signs Date Time Temp Pulse Resp B/P (MAP) Pulse Ox O2 Delivery O2 Flow Rate FiO2 12/24/16 18:10 16 100 Room Air 12/24/16 17:55 16 100 Room Air 12/24/16 17:38 98.4 79 18 173/81 (111) 96 Room Air Physical Exam GENERAL: Well-nourished, well-developed patient. SKIN: Warm and dry. HEAD: Normocephalic. EYES: No scleral icterus. No injection or drainage. NECK: Supple, trachea midline. No JVD or lymphadenopathy. CARDIOVASCULAR: Regular rate and rhythm without murmurs, gallops, or rubs. RESPIRATORY: Breath sounds equal bilaterally. No accessory muscle use. GASTROINTESTINAL: Abdomen soft, non-tender, nondistended. MUSCULOSKELETAL: No cyanosis, or edema. BACK: Nontender without obvious deformity. NEURO EXAM: GCS: M 6 V 5 E 4 Mental Status: The patient is alert and oriented to person, place, and time with normal speech. Cranial Nerves: Visual acuity intact bilaterally. Visual mora normal in all quadrants. Pupils are round, reactive to light. Extraocular movements are intact without ptosis. Hearing is normal bilaterally. Voice is normal. Tongue protrudes midline and moves symmetrically. Reflexes: Biceps, patellar, and Achilles are 2/4 bilaterally. No clonus. Laboratory Laboratory Tests Test 12/24/16 18:30 White Blood Count 8.0 Red Blood Count 4.18 Hemoglobin 13.5 Hematocrit 39.3 Mean Corpuscular Volume 93.9 Mean Corpuscular Hemoglobin 32.3 Mean Corpuscular Hemoglobin Concent 34.4 Red Cell Distribution Width 13.8 Platelet Count 200 Mean Platelet Volume 7.3 Neutrophils (%) (Auto) 64.5 Lymphocytes (%) (Auto) 23.3 Monocytes (%) (Auto) 8.4 Eosinophils (%) (Auto) 3.4 Basophils (%) (Auto) 0.4 Neutrophils # (Auto) 5.1 Lymphocytes # (Auto) 1.9 Monocytes # (Auto) 0.7 Eosinophils # (Auto) 0.3 Basophils # (Auto) 0.0 CBC Comment DIFF FINAL Differential Comment Prothrombin Time 10.4 Prothromb Time International Ratio 0.9 Activated Partial Thromboplast Time 24.3 Blood Urea Nitrogen 17 Creatinine 0.81 Random Glucose 106 Albumin 3.5 Calcium Level 8.7 Magnesium Level 1.9 Aspartate Amino Transf (AST/SGOT) 37 Alanine Aminotransferase (ALT/SGPT) 51 Sodium Level 138 Potassium Level 4.5 Chloride Level 107 Carbon Dioxide Level 23.1 Anion Gap 8 Estimat Glomerular Filtration Rate 91 Result Diagram: 12/24/16182912/24/161829 Imaging Last [address] 12/24/161819 Signed Impressions: Service Date/Time: Saturday, December 24, 2016 18:48 - CONCLUSION: 1. Abnormal edema in the left frontoparietal region associated with a 2 cm hemorrhage most characteristic of a partially hemorrhagic infarct with localized mass effect and sulcal effacement. No significant midline shift. Balbir Melvin MD Chest X-Ray 12/24/161819 Signed Impressions: Service Date/Time: Saturday, December 24, 2016 18:43 - CONCLUSION: 1. Stable mild cardiomegaly. Clear lungs. Lew Ribeiro Jr., MD Septic Shock Reassessment Septic Shock Reassessment Caprini VTE Risk Assessment Caprini VTE Risk Assessment Caprini VTE Risk Assessment: No/Low Risk (score <= 1) Caprini Risk Assessment Model Point Value = 1 Point Value = 2 Point Value = 3 Point Value = 5 Age 41-60 Minor surgery BMI > 25 kg/m2 Swollen legs Varicose veins or History of unexplained or recurrent spontaneous Oral contraceptives or hormone replacement Sepsis (< 1 month) Serious lung disease, including pneumonia (< 1 month) Abnormal pulmonary function Acute myocardial infarction Congestive heart failure (< 1 month) History of inflammatory bowel disease Medical patient at bed rest Age 61-74 Arthroscopic surgery Major open surgery (> 45 min) Laparoscopic surgery (> 45 min) Malignancy Confined to bed (> 72 hours) Immobilizing plaster cast Central venous access Age >= 75 History of VTE Family history of VTE Factor V Leiden Prothrombin [id number] Lupus anticoagulant Anticardiolipin antibodies Elevated serum homocysteine Heparin-induced thrombocytopenia Other congenital or acquired thrombophilia Stroke (< 1 month) Elective arthroplasty Hip, pelvis, or leg fracture Acute spinal cord injury (< 1 month) Prophylaxis Regimen Total Risk Factor Score Risk Level Prophylaxis Regimen 0-1 Low Early ambulation 2 Moderate Order ONE of the following: *Sequential Compression Device (SCD) *Heparin 5000 units SQ BID 3-4 Higher Order ONE of the following medications: *Heparin 5000 units SQ TID *Enoxaparin/Lovenox 40 mg SQ daily (WT < 150 kg, CrCl > 30 mL/min) *Enoxaparin/Lovenox 30 mg SQ daily (WT < 150 kg, CrCl > 10-29 mL/min) *Enoxaparin/Lovenox 30 mg SQ BID (WT < 150 kg, CrCl > 30 mL/min) AND/OR *Sequential Compression Device (SCD) 5 or more Highest Order ONE of the following medications: *Heparin 5000 units SQ TID (Preferred with Epidurals) *Enoxaparin/Lovenox 40 mg SQ daily (WT < 150 kg, CrCl > 30 mL/min) *Enoxaparin/Lovenox 30 mg SQ daily (WT < 150 kg, CrCl > 10-29 mL/min) *Enoxaparin/Lovenox 30 mg SQ BID (WT < 150 kg, CrCl > 30 mL/min) AND *Sequential Compression Device (SCD) Assessment and Plan Assessment and Plan Assessment and Plan Intracranial bleed - No surgical intervention indicated - Blood pressure control - Supportive care - Monitor neuro checks in the unit - Repeat CT head 24 hours - PT and OT eval and treat as tolerated Hypertension - Nicardipine drip - Labetalol and hydralazine when necessary to keep SBP less than 150 Diabetes - Hold metformin while in the ICU - Insulin sliding scale Dyslipidemia - Atorvastatin DVT GI prophylaxis - Teds SCDs - No pharmacological DVT prophylaxis due to ICH - Pepcid Review of Systems Constitutional: DENIES: Diaphoretic episodes, Fatigue, Fever, Weight gain, Weight loss, Chills, Dizziness, Change in appetite, Night Sweats Endocrine: DENIES: Heat/cold intolerance, Polydipsia, Polyuria, Polyphagia Eyes: DENIES: Blurred vision, Diplopia, Eye inflammation, Eye pain, Vision loss , Photosensitivity, Double Vision Ears, nose, mouth, throat: DENIES: Tinnitus, Hearing loss, Vertigo, Nasal discharge, Oral lesions, Throat pain, Hoarseness, Ear Pain, Running Nose, Epistaxis, Sinus Pain, Toothache, Odynophagia Respiratory: DENIES: Apneas, Cough, Snoring, Wheezing, Hemoptysis, Sputum production, Shortness of breath Cardiovascular: DENIES: Chest pain, Palpitations, Syncope, Dyspnea on Exertion , PND, Lower Extremity Edema, Orthopnea, Claudication Gastrointestinal: DENIES: Abdominal pain, Black stools, Bloody stools, Constipation, Diarrhea, Nausea, Vomiting, Difficulty Swallowing, Anorexia Genitourinary: DENIES: Sexual dysfunction, Urinary frequency, Urinary incontinence, Urgency, Hematuria, Dysuria, Nocturia, Penile Discharge, Testicular Pain, Testicular Swelling Musculoskeletal: DENIES: Joint pain, Muscle aches, Stiffness, Joint Swelling, Back pain, Neck pain Integumentary: DENIES: Abnormal pigmentation, Nail changes, Pruritus, Rash Hematologic/lymphatic: DENIES: Bruising, Lymphadenopathy Immunologic/allergic: DENIES: Eczema, Urticaria Neurologic: COMPLAINS OF: Abnormal gait, Localized weakness, Paresthesias, Poor Balance, DENIES: Headache, Seizures, Speech Problems, Tremor Psychiatric: DENIES: Anxiety, Confusion, Mood changes, Depression, Hallucinations, Agitation, Suicidal Ideation, Homicidal Ideation, Delusions Past Family Social History Allergies: Coded Allergies: No Known Allergies (Unverified , 12/24/16) Past Medical History Hypertension Dyslipidemia CVA 2009 Diabetes Past Surgical History No prior surgeries Reported Medications Medrol Dosepak (Methylprednisolone) 4 Mg Dspk 4 Mg PO DIRECTED Per Pharmacist direction Naprosyn (Naproxen) 500 Mg Tab 500 Mg PO BID 7 Days Lisinopril Unknown Strength Tab Unknown Dose PO DAILY Simvastatin Unknown Strength Tab Unknown Dose PO DAILY Metformin (Metformin HCl) Unknown Strength Tab Unknown Dose PO BIDPC With meals Active Ordered Medications Current Medications Medications (Trade) Dose Ordered Sig/Jimmy Route PRN Reason Start Time Stop Time Status Last Admin Dose Admin Sodium Chloride (NS Flush) 2 ml UNSCH PRN IV FLUSH FLUSH AFTER USING IV ACCESS 12/24/16 19:15 Sodium Chloride (NS Flush) 2 ml BID IV FLUSH 12/24/16 21:00 12/24/16 20:42 Acetaminophen (Tylenol) 650 mg Q6H PRN PO PAIN 1-5 AND/OR FEVER >101F 12/24/16 19:15 Morphine Sulfate (Morphine Inj) 2 mg Q2H PRN IV PAIN 6-10 12/24/16 19:30 Famotidine (Pepcid Inj) 20 mg Q12HR IV PUSH 12/24/16 21:00 12/24/16 20:50 Ondansetron HCl (Zofran Inj) 4 mg Q6H PRN IV PUSH NAUSEA OR VOMITING 12/24/16 19:15 Albuterol/ Ipratropium (Duoneb Neb) 1 ampule Q2HR NEB PRN INH WHEEZING 12/24/16 19:15 Miscellaneous Information 1 Q361D XX 12/24/16 19:15 Chlorhexidine Gluconate (Chlorhexidine 2% Cloth) 3 pack Taper DAILY@04 TOP 12/25/16 04:00 12/21/17 03:59 Chlorhexidine Gluconate (Chlorhexidine 2% Cloth) 3 pack UNSCH PRN TOP HYGIENIC CARE 12/24/16 19:15 Senna/Docusate Sodium (Dora-Colace) 1 tab BID PO 12/24/16 21:00 12/24/16 20:50 Magnesium Hydroxide (Milk Of Magnesia Liq) 30 ml Q12H PRN PO Mild constipation 12/24/16 19:15 Sennosides (Senokot) 17.2 mg Q12H PRN PO Moderate constipation 12/24/16 19:15 Bisacodyl (Dulcolax Supp) 10 mg DAILY PRN RECTAL SEVERE CONSITIPATION 12/24/16 19:15 Lactulose (Lactulose Liq) 30 ml DAILY PRN PO SEVERE CONSITIPATION 12/24/16 19:15 Dextrose (D50w (Vial) Inj) 50 ml UNSCH PRN IV PUSH HYPOGLYCEMIA-SEE COMMENTS 12/24/16 19:30 Glucagon (Glucagon Inj) 1 mg UNSCH PRN OTHER HYPOGLYCEMIA-SEE COMMENTS 12/24/16 19:30 Insulin Aspart (NovoLOG SUPPLEMENTAL SCALE) 1 ACHS SLIDING SCALE SQ 12/24/16 21:00 Nicardipine HCl 25 mg/Sodium Chloride 250 ml @ 50 mls/hr TITRATE PRN IV Blood pressure management 12/24/16 19:30 Hydralazine HCl (Apresoline Inj) 20 mg Q4H PRN IV PUSH SBP>160, DBP>90 12/24/16 19:30 12/24/16 22:31 Labetalol HCl (Trandate Inj) 10 mg Q4H PRN IV PUSH SBP>160, DBP>90 12/24/16 19:30 Family History His family history was reviewed. No family history significant for coronary artery disease or malignancy Social History Alcohol Use: No Tobacco Use: No (QUIT 40 YEARS AGO) Substance Use: No Physical Exam Vital Signs Vital Signs Date Time Temp Pulse Resp B/P (MAP) Pulse Ox O2 Delivery O2 Flow Rate FiO2 12/24/16 21:09 68 17 157/72 (100) 99 Room Air 12/24/16 19:17 98.5 72 16 167/79 (108) 99 Room Air 12/24/16 18:10 16 100 Room Air 12/24/16 17:55 16 100 Room Air 12/24/16 17:38 98.4 79 18 173/81 (111) 96 Room Air Physical Exam Mr. Rooney is alert. awake and oriented to time, place and person. Speech is fluent. Higher cognitive functions are normal. 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 Cranial nerve examination demonstrates the pupils to be equal, round, and reactive to light. Extra-ocular movements are intact Funduscopic examination shows no papiledema Facial motor and sensory function are normal and symmetrical. Gross hearing is intact, bilaterally. The uvula is midline and elevates symmetrically with the soft palate. Sternocleidomastoid and trapezius muscles have normal and symmetrical strength. Other cranial nerves are intact. Neck is soft and supple. Cervical spine has a full range of motion in anterior flexion, extension, lateral bending, and rotation without pain. There is no tenderness to palpation to the spinous processes or paraspinal muscles. Muscle testing reveals normal bulk and tone overall without rigidity, spasticity , fasciculations, or atrophy. 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 In the lower extremities, strength is 5/5 in both iliopsoas, quadriceps, hamstrings, plantar flexion, dorsiflexion, and extensor hallicus longus. Sensory examination is intact to light touch and sharp/dull discrimination in both the upper and lower extremities, symmetrically. Deep tendon reflexes are 2+ and symmetrical in the biceps, triceps, and brachioradialis, bilaterally, in the upper extremities. In the lower extremities , the patellar and Achilles are 2+, bilaterally. There is a bilateral plantar flexion response. Hoffmanns sign is negative. There is no clonus or other abnormal reflexes noted. Cerebellar examination is intact to [id number] test, rapid rhythmic alternating motion. There is no dysmetria, dysdiadochokinesia, truncal ataxia, or tremor. Laboratory Laboratory Tests Test 12/24/16 18:30 12/24/16 21:00 White Blood Count 8.0 Red Blood Count 4.18 Hemoglobin 13.5 Hematocrit 39.3 Mean Corpuscular Volume 93.9 Mean Corpuscular Hemoglobin 32.3 Mean Corpuscular Hemoglobin Concent 34.4 Red Cell Distribution Width 13.8 Platelet Count 200 Mean Platelet Volume 7.3 Neutrophils (%) (Auto) 64.5 Lymphocytes (%) (Auto) 23.3 Monocytes (%) (Auto) 8.4 Eosinophils (%) (Auto) 3.4 Basophils (%) (Auto) 0.4 Neutrophils # (Auto) 5.1 Lymphocytes # (Auto) 1.9 Monocytes # (Auto) 0.7 Eosinophils # (Auto) 0.3 Basophils # (Auto) 0.0 CBC Comment DIFF FINAL Differential Comment Prothrombin Time 10.4 Prothromb Time International Ratio 0.9 Activated Partial Thromboplast Time 24.3 Blood Urea Nitrogen 17 Creatinine 0.81 Random Glucose 106 Total Protein 7.3 Albumin 3.5 Calcium Level 8.7 Magnesium Level 1.9 Alkaline Phosphatase 66 Aspartate Amino Transf (AST/SGOT) 37 Alanine Aminotransferase (ALT/SGPT) 51 Total Bilirubin 0.5 Sodium Level 138 Potassium Level 4.5 Chloride Level 107 Carbon Dioxide Level 23.1 Anion Gap 8 Estimat Glomerular Filtration Rate 91 Total Creatine Kinase 123 Creatine Kinase MB 3.1 Troponin I LESS THAN 0.02 Thyroid Stimulating Hormone 3rd Gen 0.461 Result Diagram: 12/24/16182912/24/161829 Imaging Last [address] 12/24/161819 Signed Impressions: Service Date/Time: Saturday, December 24, 2016 18:48 - CONCLUSION: 1. Abnormal edema in the left frontoparietal region associated with a 2 cm hemorrhage most characteristic of a partially hemorrhagic infarct with localized mass effect and sulcal effacement. No significant midline shift. Balbir Melvin MD Chest X-Ray 12/24/161819 Signed Impressions: Service Date/Time: Saturday, December 24, 2016 18:43 - CONCLUSION: 1. Stable mild cardiomegaly. Clear lungs. Lew Ribeiro Jr., MD Attending Statement Neuro. Hemorrhaguc CVA versus mass.Continue neuro checks in a serial fashion. A follow-up MRI of the head will be obtained in 24 hours, with and without contradt to rule out a tumor acetaminophen/cooling blanket as needed for temperature greater than 100.4 Respiratory aggressive pulmonary toilette, nasotracheal suction, and breathing treatments with nebulizers. Nutrition. Oral Renal. monitor closely urine output, BUN and creatinine Che in place. Monitor intake and output. Monitor electrolytes and replace as indicated per ICU electrolyte replacement protocol. ENDO:Monitor bedside glucose and initiate low-dose insulin sliding scale as indicated for glucose greater than 180 Prior to surgery needs central venous line, A-line insertion for hemodynamic monitoring Infectious disease. Intravenous antibiotics as recommended for treatment of the open femoral fracture Protonix for stress ulcer prophylaxis Luis hose and SCD's for DVT prophylaxis. Discussed with Lion Mora MD Dec 24, 2016 21:23
[2016-12-24 21:27] LABS: BLOOD, URINE NEG (NEG); COMMENT (UR) CULT NOT INDICATED; CULTURE IF INDICATED CULT NOT INDICATED; GLUCOSE,URINE TRACE mg/dL (NEG); KETONE, URINE NEG (NEG); NITRITE,URINE NEG (NEG); PH, URINE 5.5 (5.0-8.5); SQUAMOUS EPITHELIAL CELL URINE <1 /hpf (0-5); URINE COLOR YELLOW (YELLW/STRAW)
[2016-12-24] MEDS: hydrALAZINE HCL 20 MG/ML VIAL IV PUSH PRN (22:31)
[2016-12-25] VITALS (11 sets, daily range): BP systolic 111–168; BP diastolic 56–78; PULSE 70–114; RESP 23–34; TEMP 98.2–98.8; O2SAT 94–97
[2016-12-25] MEDS: hydrALAZINE HCL 20 MG/ML VIAL IV PUSH PRN ×2 (03:21→06:20)
[2016-12-25] MEDS: CHLORHEXIDINE GLUCONATE 2 % 1 PACK (2 CLOTHS) TOP SCH (06:17)
[2016-12-25] MEDS: INSULIN ASPART SUPPLEMENTAL SCALE SQ SCH ×4 (08:00→21:23)
[2016-12-25] MEDS: SODIUM CHLORIDE 0.9% FLUSH 10 ML FLUSH IV FLUSH SCH ×2 (08:38→20:31)
[2016-12-25] MEDS: FAMOTIDINE 20 MG/2 ML VIAL IV PUSH SCH ×2 (09:03→20:27)
[2016-12-25] MEDS: DOCUSATE SODIUM 50 MG/SENNA 8.6 MG TAB PO SCH ×2 (09:03→20:28)
--- NOTE | 2016-12-25 09:42 | HHI.NSPN ---
(Claudia Menendez) Note Status Status: Progress Note (Claudia Menendez) Interval History Interval History 86 year old male who presents with 2 weeks complaint of numbness and tingling in his right upper and lower extremity. CT Brain on arrival showed a 2 cm left parietal intraparenchymal hemorrhage. 12/25: in [place], he denies headaches and reports intermittent paralysis in the right upper extremity (Claudia Menendez) Labs, Micro, & Vital Signs Results Date Time Temp Pulse Resp B/P (MAP) Pulse Ox O2 Delivery O2 Flow Rate FiO2 12/25/16 07:00 Room Air 12/25/16 06:00 80 12/25/16 04:00 83 12/25/16 00:00 Room Air 12/25/16 00:00 76 12/24/16 21:29 12/24/16 21:09 68 17 157/72 (100) 99 Room Air 12/24/16 19:17 98.5 72 16 167/79 (108) 99 Room Air 12/24/16 18:10 16 100 Room Air 12/24/16 17:55 16 100 Room Air 12/24/16 17:38 98.4 79 18 173/81 (111) 96 Room Air Constitutional Vital Signs Date Time Temp Pulse Resp B/P (MAP) Pulse Ox O2 Delivery O2 Flow Rate FiO2 12/25/16 07:00 Room Air 12/25/16 06:00 80 12/25/16 04:00 83 12/25/16 00:00 Room Air 12/25/16 00:00 76 12/24/16 21:29 12/24/16 21:09 68 17 157/72 (100) 99 Room Air 12/24/16 19:17 98.5 72 16 167/79 (108) 99 Room Air 12/24/16 18:10 16 100 Room Air 12/24/16 17:55 16 100 Room Air 12/24/16 17:38 98.4 79 18 173/81 (111) 96 Room Air (Claudia Menendez) Review of Systems Constitutional: DENIES: Fever Cardiovascular: DENIES: Chest pain Neurologic: COMPLAINS OF: Paresthesias, DENIES: Headache (Claudia Menendez) Physical Exam Mr. Rooney is alert. Speech is fluent in [place], no dysarthria. Follows commands in [place]. Cranial nerve examination: pupils equal, round, and reactive to light. Extra- ocular movements are intact. Facial motor are normal and symmetrical. Neck is soft and supple. Muscle testing reveals normal bulk and tone. Muscle strength currently moves all four extremities well and symmetrically. Deep tendon reflexes are 2+ and symmetrical. There is a bilateral plantar flexion response. Cerebellar examination is intact to [id number] test. (Claudia Menendez) Mr. Rooney is alert. Speech is fluent in [place], no dysarthria. Follows commands in [place]. Cranial nerve examination: pupils equal, round, and reactive to light. Extra- ocular movements are intact. Facial motor are normal and symmetrical. Neck is soft and supple. Muscle testing reveals normal bulk and tone. Muscle strength currently moves all four extremities well and symmetrically. Deep tendon reflexes are 2+ and symmetrical. There is a bilateral plantar flexion response. Cerebellar examination is intact (Lion Desir MD) Medications Current Medications Current Medications Medications (Trade) Dose Ordered Sig/Jimmy Route PRN Reason Start Time Stop Time Status Last Admin Dose Admin Sodium Chloride (NS Flush) 2 ml UNSCH PRN IV FLUSH FLUSH AFTER USING IV ACCESS 12/24/16 19:15 Sodium Chloride (NS Flush) 2 ml BID IV FLUSH 12/24/16 21:00 12/25/16 08:38 Acetaminophen (Tylenol) 650 mg Q6H PRN PO PAIN 1-5 AND/OR FEVER >101F 12/24/16 19:15 Morphine Sulfate (Morphine Inj) 2 mg Q2H PRN IV PAIN 6-10 12/24/16 19:30 Famotidine (Pepcid Inj) 20 mg Q12HR IV PUSH 12/24/16 21:00 12/25/16 09:03 Ondansetron HCl (Zofran Inj) 4 mg Q6H PRN IV PUSH NAUSEA OR VOMITING 12/24/16 19:15 Albuterol/ Ipratropium (Duoneb Neb) 1 ampule Q2HR NEB PRN INH WHEEZING 12/24/16 19:15 Miscellaneous Information 1 Q361D XX 12/24/16 19:15 Chlorhexidine Gluconate (Chlorhexidine 2% Cloth) 3 pack Taper DAILY@04 TOP 12/25/16 04:00 12/21/17 03:59 12/25/16 06:17 Chlorhexidine Gluconate (Chlorhexidine 2% Cloth) 3 pack UNSCH PRN TOP HYGIENIC CARE 12/24/16 19:15 Senna/Docusate Sodium (Dora-Colace) 1 tab BID PO 12/24/16 21:00 12/25/16 09:03 Magnesium Hydroxide (Milk Of Magnesia Liq) 30 ml Q12H PRN PO Mild constipation 12/24/16 19:15 Sennosides (Senokot) 17.2 mg Q12H PRN PO Moderate constipation 12/24/16 19:15 Bisacodyl (Dulcolax Supp) 10 mg DAILY PRN RECTAL SEVERE CONSITIPATION 12/24/16 19:15 Lactulose (Lactulose Liq) 30 ml DAILY PRN PO SEVERE CONSITIPATION 12/24/16 19:15 Dextrose (D50w (Vial) Inj) 50 ml UNSCH PRN IV PUSH HYPOGLYCEMIA-SEE COMMENTS 12/24/16 19:30 Glucagon (Glucagon Inj) 1 mg UNSCH PRN OTHER HYPOGLYCEMIA-SEE COMMENTS 12/24/16 19:30 Insulin Aspart (NovoLOG SUPPLEMENTAL SCALE) 1 ACHS SLIDING SCALE SQ 12/24/16 21:00 Nicardipine HCl 25 mg/Sodium Chloride 250 ml @ 50 mls/hr TITRATE PRN IV Blood pressure management 12/24/16 19:30 Hydralazine HCl (Apresoline Inj) 20 mg Q4H PRN IV PUSH SBP>160, DBP>90 12/24/16 19:30 12/25/16 06:20 Labetalol HCl (Trandate Inj) 10 mg Q4H PRN IV PUSH SBP>160, DBP>90 12/24/16 19:30 (Claudia Menendez) Medical Decision Making MDM Remarks 86 year old male with left parietal intraparenchymal hemorrhage on CT Brain , hemorrhagic CVA possible intermittent focal seizures with report of intermittent right upper extremity paralysis (Claudia Menendez) Plan Plan Remarks cont nonoperative management at this time, MRI Brain w/wo contrast to assess underlying mass lesions cont serial neuro checks ok to start diet from NRS standpoint physical therapy non-chemical dvt prophylaxis for now due to acute ICH Protonix for stress ulcer prophylaxis Addendum: MRI Brain w/wo contrast completed shows enhancing 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 MRI of the brain showed a ring enhancing mass. The alternatives of treatment were discussed, including a craniotomy with microsurgical resection. The patient and his family are requesting a biopsy. We have discussed the details including the [id number] details of the surgical procedure, its indications, alternatives, risks, and potential complications. Risks and potential complications include, but are not limited to, infection, blood loss, CSF leak, partial or complete loss of sight in one or both eyes, paresis, paralysis, permanent pain or difficulty swallowing, loss of bowel or bladder function, complications from anesthesia, blood clot, stroke, myocardial infarction, or even . Respiratory aggressive pulmonary toilette, nasotracheal suction, and breathing treatments with nebulizers. Nutrition. Oral diet Renal. monitor closely urine output, BUN and creatinine Che in place. Monitor intake and output. Monitor electrolytes and replace as indicated per ICU electrolyte replacement protocol. ENDO:Monitor bedside glucose and initiate low-dose insulin sliding scale as indicated for glucose greater than 180 Prior to surgery needs central venous line, A-line insertion for hemodynamic monitoring Infectious disease. Intravenous antibiotics as recommended for treatment of the open femoral fracture Continue Protonix for stress ulcer prophylaxis Continue Luis hose and SCD's for DVT prophylaxis. The exam, history, and the medical decision-making described in the above note were completed with the assistance of the mid-level provider. I reviewed and agree with the findings presented. I attest that I had a [id number] encounter with the patient on the same day, and personally performed and documented my assessment and findings in the medical record. (Lion Desir MD) Claudia Menendez Dec 25, 2016 09:42 Lion Desir MD Dec 27, 2016 08:58
[2016-12-25] MEDS ORDERED: GADODIAMIDE PF 287 MG/ML 5 ML VIAL (for RAD MRI) IVCONTRAST ONE (11:49)
--- NOTE | 2016-12-25 12:14 | RADRPT ---
EXAM DATE/TIME: 12/25/2016 11:23 [place] COMPARISON: No previous studies available for comparison. INDICATIONS : Right arm and bilateral lower extremity tingling. CONTRAST: 14 cc Omniscan (gadodiamide) IV MEDICAL HISTORY : Hypertension. Diabetes mellitus type 2. SURGICAL HISTORY : None. ENCOUNTER: Subsequent ACUITY: 2 weeks PAIN SCORE: 0/10 LOCATION: cranial TECHNIQUE: Multiplanar, multisequence MRI of the brain was performed both prior to and following the administrat ion of paramagnetic contrast. FINDINGS: CEREBRUM: The ventricles are normal for age. Rim-enhancing mass lesion in the left high parietal convexity a me asures 2.5 x 4.0 x 3.6 cm. Heterogeneous signal centrally suggests possible intralesional hemorrhage. Mild associated vasogenic edema. No midline shift. The pituitary gland and suprasellar cistern are normal in configuration. WHITE MATTER: Mild to moderate periventricular small vessel ischemic demyelination. POSTERIOR FOSSA: The cerebellum and brainstem are intact. The 4th ventricle is midline. The cerebellopontine angle is unremarkable. The cerebellar tonsils are normal in position. DIFFUSION IMAGING: No focal areas of restricted diffusion are seen. No evidence of acute infarction. EXTRACRANIAL: The visualized portions of the orbits and paranasal sinuses are unremarkable. Well-circumscribed 1.5 x 4.3 x 3.7 cm probable sebaceous type cyst overlying the occiput, left para midline POST-CONTRAST: Rim-enhancing mass lesion in the left high parietal convexity with associated vasogenic edema. CONCLUSION: 1. Rim-enhancing mass lesion in the high parietal left convexity with associated vasogenic edema and possible intralesional hemorrhage. Findings are concerning for possible GBM. 2. Despite the regional vasogenic edema, no significant midline shift. 3. Mild to moderate periventricular small vessel ischemic demyelination. 4. Probable 4.3 x 3.7 cm sebaceous type cyst in the scalp overlying the occipital bone, left para mid line. Len Alberto MD on December 25, 2016 at 12:07 Board Certified Radiologist. This report was verified electronically.
--- NOTE | 2016-12-25 17:34 | MG ---
cc: KARAL BAUTISTA M.D. Lab No: Date: 12/25/2016 Age: Sex: M Race: DATE OF 1930 ELECTROENCEPHALOGRAM NUMBER [id number] REFERRING PHYSICIAN LITO Menendez ROOM 1336 Awake. Photic stimulation only. MRI rim enhancing mass in the high right parietal left convexity with vasogenic edema, possible hemorrhage. Possible GBM. MEDICATIONS Apresoline. DESCRIPTION OF RECORD The patient has an alpha rhythm of 8 Hz, 8.5 Hz. 20-50 microvolts symmetrical with myogenic artifact seen throughout. No epileptiform features. Photic stimulation does elicit a posterior driving response. IMPRESSION Overall normal appearing EEG. No epileptiform features seen in this one recording. Clinical correlation. MD SHAJI Baca/FRANCO /4:03 PM /5:25 PM
[2016-12-25] MEDS: DEXAMETHASONE 4 MG TAB PO SCH (18:00)
--- NOTE | 2016-12-25 18:02 | HHI.CCPN ---
Subjective Remarks/Hospital Course 86-year-old Bangladeshi-speaking male with history of diabetes, hypertension, hyperlipidemia presents with complaints of right upper and b/l lower extremity numbness over the past 2 weeks. Patient reports that over the past 2 weeks, he would have episodes of numbness and tingling to his right arm his right lower extremity. Reports that symptoms would last about 2 hours and resolve on its own. He denies any headache or dizziness at this time, denies any vision changes. Denies any fall or trauma. CT of the head shows abnormal edema in the left frontoparietal region associated with a 2 cm hemorrhage most characteristic of a partially hemorrhagic infarct with localized mass effect and sulcal effacement. No significant midline shift. 12/25: Stable hemodynamics. Conversant, concern for swallow. Objective Vital Signs Date Time Temp Pulse Resp B/P (MAP) Pulse Ox O2 Delivery O2 Flow Rate FiO2 12/25/16 16:00 98.8 85 34 111/56 (74) 97 12/25/16 07:00 Room Air Intake and Output 12/25/16 12/25/16 12/26/16 08:00 16:00 00:00 Output Total 400 ml Balance -400 ml Result Diagram: 12/24/16182912/24/161829 Imaging Last [address] 12/24/161819 Signed Impressions: Service Date/Time: Saturday, December 24, 2016 18:48 - CONCLUSION: 1. Abnormal edema in the left frontoparietal region associated with a 2 cm hemorrhage most characteristic of a partially hemorrhagic infarct with localized mass effect and sulcal effacement. No significant midline shift. Balbir Melvin MD Chest X-Ray 12/24/161819 Signed Impressions: Service Date/Time: Saturday, December 24, 2016 18:43 - CONCLUSION: 1. Stable mild cardiomegaly. Clear lungs. Lew Ribeiro Jr., MD Objective Remarks GENERAL: Well-nourished, well-developed patient. SKIN: Warm and dry. HEAD: Normocephalic. EYES: No scleral icterus. No injection or drainage. NECK: Supple, trachea midline. Airway widely patent. CARDIOVASCULAR: Regular rate and rhythm without murmurs, gallops, or rubs. RESPIRATORY: Breath sounds equal bilaterally. No accessory muscle use. GASTROINTESTINAL: Abdomen soft, non-tender, nondistended. MUSCULOSKELETAL: No cyanosis, or edema. BACK: Nontender without obvious deformity. NEURO EXAM: Moves to command. A/P Assessment and Plan Intracranial bleed - No surgical intervention indicated - Blood pressure control - Supportive care - Monitor neuro checks in the unit - Repeat CT head 24 hours - PT and OT eval and treat as tolerated Hypertension - Nicardipine drip - Labetalol and hydralazine when necessary to keep SBP less than 150 Diabetes - Hold metformin while in the ICU - Insulin sliding scale Dyslipidemia - Atorvastatin DVT GI prophylaxis - Teds SCDs - No pharmacological DVT prophylaxis due to ICH - Pepcid Overall impression: Stable respiratory and hemodynamic function. Aram Russell MD Dec 25, 2016 18:02
[2016-12-25] MEDS: levETIRAcetam 500 MG TAB PO SCH (20:27)
[2016-12-26] VITALS (13 sets, daily range): BP systolic 121–166; BP diastolic 55–72; PULSE 62–90; RESP 16–34; TEMP 97.9–98.7; O2SAT 92–96
[2016-12-26] MEDS: DEXAMETHASONE 4 MG TAB PO SCH ×4 (00:35→17:14)
[2016-12-26] MEDS: CHLORHEXIDINE GLUCONATE 2 % 1 PACK (2 CLOTHS) TOP SCH (04:00)
--- NOTE | 2016-12-26 07:38 | MB ---
cc: ANIA VELEZ M.D. DATE OF CONSULTATION 12/25/2016 REASON FOR CONSULTATION Consult requested by Dr. Desir for evaluation of brain mass. HISTORY OF PRESENT ILLNESS Yefri Rooney is an 86-year-old elderly male. He does not speak Lithuanian. History is obtained through interpretation with his granddaughter. 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 He has a history of hypertension, diabetes mellitus. He was found to have right upper and bilateral lower extremity numbness. He had a CAT scan of the head which show left frontoparietal region with hemorrhage but underlying mass could not be ruled out. Dr. Desir neurosurgeon was consulted. MRI of the brain was performed today which showed rim enhancing mass in the high parietal left area with vasogenic edema and intralesional hemorrhage. The findings are concerning for primary brain tumor. Dr. Desir is consulting biopsy with possible resection. I have been asked to see the patient for further evaluation. REVIEW OF SYSTEMS The patient denies any weight loss. His appetite is good. He was complaining of weakness of the right side of the body and recently was having difficulty walking. The rest of the review of systems is negative. PAST MEDICAL HISTORY 1. Diabetes mellitus. 2. Hypertension. 3. Hypercholesterolemia. 4. History of stroke. PAST SURGICAL HISTORY None reported. ALLERGIES None reported. MEDICATIONS 1. Lisinopril. 2. Simvastatin. 3. Metformin. FAMILY HISTORY Noncontributory. SOCIAL HISTORY The patient does not smoke cigarettes, does not drink alcohol. 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 PHYSICAL EXAMINATION GENERAL: A well-developed male in no apparent distress. VITAL SIGNS: Temperature 98.8, heart is 86, blood pressure 115/56. HEENT: PERRLA, EOMI, anicteric. No oral lesions are noted. NECK: Supple. LYMPHATICS: There is no cervical, supraclavicular or axillary lymphadenopathy noted. LUNGS: Clear. No wheezing, rhonchi or rales. HEART: Regular rate and rhythm. ABDOMEN: Soft, nontender. No hepatosplenomegaly. EXTREMITIES: No pedal edema. NEUROLOGY: Awake, alert, oriented x 3. SKIN: No significant lesions are noted. ASSESSMENT 1. 2.5 x 4.0 x 3.6-cm rim-enhancing mass in the left high parietal lobe consistent with primary brain tumor until proven otherwise. 2. Diabetes mellitus. 3. Hypertension. 4. Hypercholesterolemia. PLAN I have reviewed his available records and I have discussed with the patient and multiple family members. His granddaughter acted as director of special services as the patient does not speak any Lithuanian. Dr. Desir has discussed with the patient regarding the possibility of primary brain tumor and he has recommended biopsy with possible resection. The patient is anxious to know when he will undergo surgery. Once we have the final pathology report available, then we will discuss with the patient regarding the treatment plan. If the biopsy confirmed primary brain tumor, then he will be treated with radiation and chemotherapy depending on the grade of the primary tumor. However, if the patient is found to have metastatic tumor to the brain, then we will order the CAT scan of the chest, abdomen and pelvis to evaluate for the primary site. The patient's family have asked several questions and these were answered to their satisfaction. Thank you for asking my opinion. MD JONA Barahona/RAND /6:45 PM /7:20 AM
[2016-12-26] MEDS: FAMOTIDINE 20 MG/2 ML VIAL IV PUSH SCH ×2 (08:05→21:02)
[2016-12-26] MEDS: levETIRAcetam 500 MG TAB PO SCH ×2 (08:05→21:03)
[2016-12-26] MEDS: INSULIN ASPART SUPPLEMENTAL SCALE SQ SCH ×4 (08:05→21:03)
[2016-12-26] MEDS: SODIUM CHLORIDE 0.9% FLUSH 10 ML FLUSH IV FLUSH SCH ×2 (08:05→21:03)
[2016-12-26] MEDS: PANTOPRAZOLE SOD 40 MG DELAYED RELEASE TAB PO SCH (08:05)
[2016-12-26] MEDS: DOCUSATE SODIUM 50 MG/SENNA 8.6 MG TAB PO SCH ×2 (08:06→21:02)
--- NOTE | 2016-12-26 08:38 | HHI.CCPN ---
Subjective Remarks/Hospital Course 86-year-old Brazilian-speaking male with history of diabetes, hypertension, hyperlipidemia presents with complaints of right upper and b/l lower extremity numbness over the past 2 weeks. Patient reports that over the past 2 weeks, he would have episodes of numbness and tingling to his right arm his right lower extremity. Reports that symptoms would last about 2 hours and resolve on its own. He denies any headache or dizziness at this time, denies any vision changes. Denies any fall or trauma. CT of the head shows abnormal edema in the left frontoparietal region associated with a 2 cm hemorrhage most characteristic of a partially hemorrhagic infarct with localized mass effect and sulcal effacement. No significant midline shift. 12/25: Stable hemodynamics. Conversant, forgetful, concern for swallow. 12/26: Protects airway. Breathing comfortably. Short term memory impaired. Left hemispheric rim-enhancing mass on MRI - suspicious for glioblastoma. Objective Vital Signs Date Time Temp Pulse Resp B/P (MAP) Pulse Ox O2 Delivery O2 Flow Rate FiO2 12/26/16 08:00 74 12/26/16 08:00 98.7 23 144/71 (95) 95 12/26/16 07:00 Room Air Intake and Output 12/26/16 12/26/16 12/27/16 08:00 16:00 00:00 Intake Total 100 ml Balance 100 ml Result Diagram: 12/24/16182912/24/161829 Imaging Last [address] 12/24/161819 Signed Impressions: Service Date/Time: Saturday, December 24, 2016 18:48 - CONCLUSION: 1. Abnormal edema in the left frontoparietal region associated with a 2 cm hemorrhage most characteristic of a partially hemorrhagic infarct with localized mass effect and sulcal effacement. No significant midline shift. Balbir Melvin MD Chest X-Ray 12/24/161819 Signed Impressions: Service Date/Time: Saturday, December 24, 2016 18:43 - CONCLUSION: 1. Stable mild cardiomegaly. Clear lungs. Lew Ribeiro Jr., MD Objective Remarks GENERAL: Well-nourished, well-developed patient. SKIN: Warm and dry. HEAD: Normocephalic. NECK: Supple, trachea midline. Airway widely patent. No obstruction. CARDIOVASCULAR: Regular rate and rhythm without murmurs, gallops, or rubs. No JVD. RESPIRATORY: Breath sounds equal bilaterally. No accessory muscle use. GASTROINTESTINAL: Abdomen soft, non-tender, nondistended. BS active. MUSCULOSKELETAL: No cyanosis, or edema. NEURO EXAM: Moves to command. Conversant. Forgetful. A/P Assessment and Plan Intracranial bleed - No surgical intervention indicated - Blood pressure control - Supportive care - Monitor neuro checks in the unit - Repeat CT head 24 hours - PT and OT eval and treat as tolerated Hypertension - Nicardipine drip - Labetalol and hydralazine when necessary to keep SBP less than 150 Diabetes - Hold metformin while in the ICU - Insulin sliding scale Dyslipidemia - Atorvastatin DVT GI prophylaxis - Teds SCDs - No pharmacological DVT prophylaxis due to ICH - Pepcid Overall impression: Stable respiratory and hemodynamic function. Aram Russell MD Dec 26, 2016 08:38
--- NOTE | 2016-12-26 10:23 | PD.ONC.PN ---
Subjective Subjective Remarks Afebrile overnight. patient resting in bed. No complaints. Daughter at bedside translates. They are anxiously awaiting surgery tomorrow. Objective Data Date Time Temp Pulse Resp B/P (MAP) Pulse Ox O2 Delivery O2 Flow Rate FiO2 12/26/16 10:00 78 12/26/16 08:00 74 12/26/16 08:00 98.7 74 23 144/71 (95) 95 12/26/16 07:00 Room Air 12/26/16 06:00 62 12/26/16 04:00 98.1 62 16 145/67 (93) 94 12/26/16 04:00 70 12/26/16 02:00 68 12/26/16 00:00 70 12/26/16 00:00 98.3 68 17 121/55 (77) 93 12/25/16 22:00 70 12/25/16 20:00 98.5 98 23 168/78 (108) 97 12/25/16 20:00 92 12/25/16 19:00 97 Room Air 12/25/16 18:00 81 12/25/16 16:00 98.8 85 34 111/56 (74) 97 12/25/16 16:00 86 12/25/16 14:00 99 12/25/16 12:00 95 12/25/16 12:00 98.7 95 30 149/71 (97) 96 12/26/16 12/26/16 12/26/16 07:00 15:00 23:00 Intake Total 100 ml Balance 100 ml Result Diagram: 12/24/16182912/24/161829 Laboratory Results Laboratory Tests Test 12/26/16 07:40 Administered Medications Medications (Trade) Dose Ordered Sig/Jimmy Route PRN Reason Start Time Stop Time Status Last Admin Dose Admin Sodium Chloride (NS Flush) 2 ml BID IV FLUSH 12/24/16 21:00 12/26/16 08:05 Famotidine (Pepcid Inj) 20 mg Q12HR IV PUSH 12/24/16 21:00 12/26/16 08:05 Chlorhexidine Gluconate (Chlorhexidine 2% Cloth) 3 pack Taper DAILY@04 TOP 12/25/16 04:00 12/21/17 03:59 12/25/16 06:17 Senna/Docusate Sodium (Dora-Colace) 1 tab BID PO 12/24/16 21:00 12/25/16 20:28 Insulin Aspart (NovoLOG SUPPLEMENTAL SCALE) 1 ACHS SLIDING SCALE SQ 12/24/16 21:00 12/26/16 08:05 Hydralazine HCl (Apresoline Inj) 20 mg Q4H PRN IV PUSH SBP>160, DBP>90 12/24/16 19:30 12/25/16 06:20 Labetalol HCl (Trandate Inj) 10 mg Q4H PRN IV PUSH SBP>160, DBP>90 12/24/16 19:30 12/25/16 20:26 Levetriacetam (Keppra) 500 mg Q12HR PO 12/25/16 21:00 12/26/16 08:05 Dexamethasone (Decadron) 4 mg Q6HR PO 12/25/16 18:00 12/26/16 07:21 Pantoprazole Sodium (Protonix) 40 mg DAILY PO 12/26/16 09:00 12/26/16 08:05 Objective Remarks GENERAL: Pleasant elderly male supine in bed in nad. SKIN: Warm and dry. HEAD: Normocephalic. EYES: No injection or drainage. NECK: Supple, trachea midline. CARDIOVASCULAR: Regular rate and rhythm RESPIRATORY: anterior mora clear. GASTROINTESTINAL: Abdomen soft, non-tender, nondistended. EXTREMITIES: No cyanosis NEUROLOGICAL: awake and alert. moving extremities. Assessment/Plan Problem List: (1) Lesion of left parietal lobe of brain ICD Codes: G93.9 - Disorder of brain, unspecified Plan: 12/26: await biopsy -- 2.5 x 4.0 x 3.6-cm rim-enhancing mass in the left high parietal lobe consistent with primary brain tumor until proven otherwise. --If biopsy confirmed primary brain tumor, will be treated with radiation and chemotherapy depending on the grade of the primary tumor. --if the patient is found to have metastatic tumor to the brain, then we will order the CAT scan of the chest, abdomen and pelvis to evaluate for the primary site. Assessment 86y/o male with brain mass. h/o Diabetes mellitus. Hypertension. Hypercholesterolemia. History of stroke. Attending Statement The exam, history, and the medical decision-making described in the above note were completed with the assistance of the mid-level provider. I reviewed and agree with the findings presented. I attest that I had a [id number] encounter with the patient on the same day, and personally performed and documented my assessment and findings in the medical record. Dr. Aparicio note Reviewed Biopsy of the brain mass is scheduled for tomorrow we will follow Ayala Pierre Dec 26, 2016 10:23 Tata Matos MD Dec 27, 2016 06:41
[2016-12-26 12:31] LABS: POTASSIUM 3.8 MEQ/L (3.5-5.1)
--- NOTE | 2016-12-26 13:07 | HHI.NSPN ---
(Claudia Menendez) Note Status Status: Progress Note (Claudia Menendez) Interval History Interval History 86 year old male who presents with 2 weeks complaint of numbness and tingling in his right upper and lower extremity. CT Brain on arrival showed a 2 cm left parietal intraparenchymal hemorrhage. 12/25: [place], he denies headaches and reports intermittent paralysis in the right upper extremity 12/26: dw daughter and patient they would like to proceed with biopsy first. neuro stable overnight. EEG neg for seizures (Claudia Menendez) Labs, Micro, & Vital Signs Results Date Time Temp Pulse Resp B/P (MAP) Pulse Ox O2 Delivery O2 Flow Rate FiO2 12/26/16 12:00 97.9 79 30 166/72 (103) 93 12/26/16 12:00 78 12/26/16 10:00 78 12/26/16 08:00 74 12/26/16 08:00 98.7 74 23 144/71 (95) 95 12/26/16 07:00 Room Air 12/26/16 06:00 62 12/26/16 04:00 98.1 62 16 145/67 (93) 94 12/26/16 04:00 70 12/26/16 02:00 68 12/26/16 00:00 70 12/26/16 00:00 98.3 68 17 121/55 (77) 93 12/25/16 22:00 70 12/25/16 20:00 98.5 98 23 168/78 (108) 97 12/25/16 20:00 92 12/25/16 19:00 97 Room Air 12/25/16 18:00 81 12/25/16 16:00 98.8 85 34 111/56 (74) 97 12/25/16 16:00 86 12/25/16 14:00 99 Constitutional Vital Signs Date Time Temp Pulse Resp B/P (MAP) Pulse Ox O2 Delivery O2 Flow Rate FiO2 12/26/16 12:00 97.9 79 30 166/72 (103) 93 12/26/16 12:00 78 12/26/16 10:00 78 12/26/16 08:00 74 12/26/16 08:00 98.7 74 23 144/71 (95) 95 12/26/16 07:00 Room Air 12/26/16 06:00 62 12/26/16 04:00 98.1 62 16 145/67 (93) 94 12/26/16 04:00 70 12/26/16 02:00 68 12/26/16 00:00 70 12/26/16 00:00 98.3 68 17 121/55 (77) 93 12/25/16 22:00 70 12/25/16 20:00 98.5 98 23 168/78 (108) 97 12/25/16 20:00 92 12/25/16 19:00 97 Room Air 12/25/16 18:00 81 12/25/16 16:00 98.8 85 34 111/56 (74) 97 12/25/16 16:00 86 12/25/16 14:00 99 (Claudia Menendez) Physical Exam Mr. Rooney is alert. Speech is fluent in Cymro, no dysarthria. Follows commands in Cymro. Cranial nerve examination: pupils equal, round, and reactive to light. Extra- ocular movements are intact. Facial motor are normal and symmetrical. Neck is soft and supple. Muscle testing reveals normal bulk and tone. Muscle strength currently moves all four extremities well and symmetrically. Deep tendon reflexes are 2+ and symmetrical. There is a bilateral plantar flexion response. Cerebellar examination is intact to [id number] test. (Claudia Menendez) Mr. Rooney is alert. Speech is fluent in Cym[place], no dysarthria. Follows commands in Cymro. 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 Cranial nerve examination: pupils equal, round, and reactive to light. Extra- ocular movements are intact. Facial motor are normal and symmetrical. Neck is soft and supple. Muscle testing reveals normal bulk and tone. Muscle strength currently moves all four extremities well and symmetrically. Deep tendon reflexes are 2+ and symmetrical. There is a bilateral plantar flexion response. Cerebellar examination is intact (Lion Desir MD) Medications Current Medications Current Medications Medications (Trade) Dose Ordered Sig/Jimmy Route PRN Reason Start Time Stop Time Status Last Admin Dose Admin Sodium Chloride (NS Flush) 2 ml UNSCH PRN IV FLUSH FLUSH AFTER USING IV ACCESS 12/24/16 19:15 Sodium Chloride (NS Flush) 2 ml BID IV FLUSH 12/24/16 21:00 12/26/16 08:05 Acetaminophen (Tylenol) 650 mg Q6H PRN PO PAIN 1-5 AND/OR FEVER >101F 12/24/16 19:15 Morphine Sulfate (Morphine Inj) 2 mg Q2H PRN IV PAIN 6-10 12/24/16 19:30 Famotidine (Pepcid Inj) 20 mg Q12HR IV PUSH 12/24/16 21:00 12/26/16 08:05 Ondansetron HCl (Zofran Inj) 4 mg Q6H PRN IV PUSH NAUSEA OR VOMITING 12/24/16 19:15 Albuterol/ Ipratropium (Duoneb Neb) 1 ampule Q2HR NEB PRN INH WHEEZING 12/24/16 19:15 Miscellaneous Information 1 Q361D XX 12/24/16 19:15 Chlorhexidine Gluconate (Chlorhexidine 2% Cloth) 3 pack Taper DAILY@04 TOP 12/25/16 04:00 12/21/17 03:59 12/25/16 06:17 Chlorhexidine Gluconate (Chlorhexidine 2% Cloth) 3 pack UNSCH PRN TOP HYGIENIC CARE 12/24/16 19:15 Senna/Docusate Sodium (Dora-Colace) 1 tab BID PO 12/24/16 21:00 12/25/16 20:28 Magnesium Hydroxide (Milk Of Magnesia Liq) 30 ml Q12H PRN PO Mild constipation 12/24/16 19:15 Sennosides (Senokot) 17.2 mg Q12H PRN PO Moderate constipation 12/24/16 19:15 Bisacodyl (Dulcolax Supp) 10 mg DAILY PRN RECTAL SEVERE CONSITIPATION 12/24/16 19:15 Lactulose (Lactulose Liq) 30 ml DAILY PRN PO SEVERE CONSITIPATION 12/24/16 19:15 Dextrose (D50w (Vial) Inj) 50 ml UNSCH PRN IV PUSH HYPOGLYCEMIA-SEE COMMENTS 12/24/16 19:30 Glucagon (Glucagon Inj) 1 mg UNSCH PRN OTHER HYPOGLYCEMIA-SEE COMMENTS 12/24/16 19:30 Insulin Aspart (NovoLOG SUPPLEMENTAL SCALE) 1 ACHS SLIDING SCALE SQ 12/24/16 21:00 12/26/16 12:25 Nicardipine HCl 25 mg/Sodium Chloride 250 ml @ 50 mls/hr TITRATE PRN IV Blood pressure management 12/24/16 19:30 Hydralazine HCl (Apresoline Inj) 20 mg Q4H PRN IV PUSH SBP>160, DBP>90 12/24/16 19:30 12/25/16 06:20 Labetalol HCl (Trandate Inj) 10 mg Q4H PRN IV PUSH SBP>160, DBP>90 12/24/16 19:30 12/25/16 20:26 Levetriacetam (Keppra) 500 mg Q12HR PO 12/25/16 21:00 12/26/16 08:05 Dexamethasone (Decadron) 4 mg Q6HR PO 12/25/16 18:00 12/26/16 12:24 Pantoprazole Sodium (Protonix) 40 mg DAILY PO 12/26/16 09:00 12/26/16 08:05 (Claudia Menendez) Medical Decision Making MDM Remarks 86 year old male with 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 Dr. Desir dw daughter and patient the [id number] details of the surgical procedure, its indications, alternatives, risks, and potential complications. Risks and potential complications include, but are not limited to, infection, blood loss, CSF leak, partial or complete loss of sight in one or both eyes, paresis, paralysis, permanent pain or difficulty swallowing, loss of bowel or bladder function, complications from anesthesia, blood clot, stroke, myocardial infarction, or even . (Claudia Menendez) Attending Statement As above. MRI of the brain showed a ring enhancing mass. The alternatives of treatment were discussed, I have recommended a craniotomy with microsurgical resection of the mass, with both diagnostic and therapeutic advantages. The patient and his family don't want a major invasive procedure, they are requesting a needle biopsy. We again discussed the details including the step-by -step details of the surgical procedure, its indications, alternatives, risks, and potential complications. Risks and potential complications include, but are not limited to, infection, blood loss, CSF leak, partial or complete loss of sight in one or both eyes, paresis, paralysis, permanent pain or difficulty swallowing, loss of bowel or bladder function, complications from anesthesia, blood clot, stroke, myocardial infarction, or even . Respiratory aggressive pulmonary toilette, nasotracheal suction, and breathing treatments with nebulizers. Nutrition. Oral diet Renal. monitor closely urine output, BUN and creatinine Che in place. Monitor intake and output. Monitor electrolytes and replace as indicated per protocol. ENDO:Monitor bedside glucose and initiate low-dose insulin sliding scale as indicated for glucose greater than 180 Prior to surgery needs central venous line, A-line insertion for hemodynamic monitoring Infectious disease. Intravenous antibiotics as recommended for treatment of the open femoral fracture Continue Protonix for stress ulcer prophylaxis Continue Luis hose and SCD's for DVT prophylaxis. The exam, history, and the medical decision-making described in the above note were completed with the assistance of the mid-level provider. I reviewed and agree with the findings presented. I attest that I had a [id number] encounter with the patient on the same day, and personally performed and documented my assessment and findings in the medical record. (Lion Desir MD) Claudia Menendez Dec 26, 2016 13:07 Lion Desir MD Dec 27, 2016 08:53
--- NOTE | 2016-12-26 15:42 | EKG ---
Date Performed: 12/26/2016 Time Performed: 09:50:47 PTAGE: 86 years EKG: Sinus rhythm WITH FIRST DEGREE AV BLOCK NONSPECIFIC T-WAVE ABNORMALITY ABNORMAL ECG Compared to prior tracing no significant change PREVIOUS TRACING : 04/21/2016 17.43 DOCTOR: Bhupinder Barron Interpretating Date/Time 12/26/2016 15:42:04
[2016-12-26] MEDS: CHLORHEXIDINE GLUCONATE 4% SOLN 120 ML BTL TOP SCH (21:00)
[2016-12-27] VITALS (12 sets, daily range): BP systolic 129–165; BP diastolic 65–84; PULSE 58–94; RESP 15–24; TEMP 97.5–97.8; O2SAT 93–98
[2016-12-27] MEDS: DEXAMETHASONE 4 MG TAB PO SCH ×5 (02:06→23:16)
[2016-12-27] MEDS: CHLORHEXIDINE GLUCONATE 2 % 1 PACK (2 CLOTHS) TOP SCH (04:00)
[2016-12-27 05:10] LABS: BICARBONATE 24.5 MEQ/L (21.0-32.0); POTASSIUM 4.3 MEQ/L (3.5-5.1)
[2016-12-27] MEDS ORDERED: ceFAZolin 2 GM PREMIX 50 ML IV SCH (06:00)
--- NOTE | 2016-12-27 07:02 | RC ---
cc: VIRAL CRUMP M.D., FEDERICO C. M.D. FACTOR, BRAD A. MD DATE OF SERVICE 12/26/2016 Mr. Rooney is an 86-year-old male inpatient I was asked to see by Dr. Desir. A copy of this evaluation will be forwarded to Dr. Desir to aid in the medical decision-making process. Treatment recommendations will be provided as well. PRIMARY CARE PHYSICIAN Dr. Viral Crump DIAGNOSIS Intracranial mass suspicious for primary brain tumor. Biopsy pending/maximum safe gross resection pending 12/27/2016. HISTORY Mr. Rooney is an 86-year-old male who initially presented with weakness in the right arm and right leg. CT of the head demonstrated edema in the left parietal area with the hemorrhage and mass effect as well. MRI obtained demonstrated potentially high-grade glioma or mass noted. He came in as an inpatient on 12/25/2016. PAST MEDICAL HISTORY, PAST SURGICAL HISTORY 1. Hypertension. 2. Stroke. 3. Diabetes. MEDICATIONS 1. Naprosyn. 2. Lisinopril. 3. Simvastatin. 4. Metformin. FAMILY HISTORY No first degree relatives with malignancy. SOCIAL HISTORY He does not smoke; he quit 40 years ago. He does not consume alcohol. REVIEW OF SYSTEMS Arm improving strength. When seen denied headache, confusion. PHYSICAL EXAMINATION GENERAL: Pleasant, elderly man. EYES: Extraocular muscles intact. No scleral icterus. EXTREMITIES: No clubbing, cyanosis or edema. NEUROLOGIC: Alert, oriented. RADIOGRAPHIC IMAGING DATA Please see above. IMPRESSION Mr. Rooney is an 86-year-old male with a mass suspicious for high-grade glioma. Counseling and coordination of care involved discussion of treatment options. We reviewed MRI findings of the brain. We did discuss the best opportunity for diagnosis and potential prognosis would be biopsy/maximum safe total resection. We discussed this with Mr. Rooney. We also discussed with Ying Rooney, the daughter today in his hospital bedroom area. We planned reevaluation in one week as well. IMPRESSION Rim-enhancing mass likely consideration primary brain tumor. PLAN Reevaluation in one week pending biopsy/maximum safe resection. We discussed with him and his daughter the potential for radiation therapy once a day Sunday through Sunday for several weeks. We discussed potential for oral chemotherapy, total chemotherapy. Follow up 01-01-17. Naresh Alyssa Saldivar MD Radiation Oncologist LY /2:23 PM /6:41 AM MARYANNE
[2016-12-27] MEDS: INSULIN ASPART SUPPLEMENTAL SCALE SQ SCH ×4 (08:00→21:21)
--- NOTE | 2016-12-27 08:30 | HHI.CCPN ---
Subjective Remarks/Hospital Course 86-year-old Cypriot-speaking male with history of diabetes, hypertension, hyperlipidemia presents with complaints of right upper and b/l lower extremity numbness over the past 2 weeks. Patient reports that over the past 2 weeks, he would have episodes of numbness and tingling to his right arm his right lower extremity. Reports that symptoms would last about 2 hours and resolve on its own. He denies any headache or dizziness at this time, denies any vision changes. Denies any fall or trauma. CT of the head shows abnormal edema in the left frontoparietal region associated with a 2 cm hemorrhage most characteristic of a partially hemorrhagic infarct with localized mass effect and sulcal effacement. No significant midline shift. 12/25: Stable hemodynamics. Conversant, forgetful, concern for swallow. 12/26: Protects airway. Breathing comfortably. Short term memory impaired. Left hemispheric rim-enhancing mass on MRI - suspicious for glioblastoma. 12/27: Moves 4 limbs but coordination with right hand movements is impaired - can't brush his teeth. Worsening glucose intolerance, will add levemir bid. Objective Vital Signs Date Time Temp Pulse Resp B/P (MAP) Pulse Ox O2 Delivery O2 Flow Rate FiO2 12/27/16 06:00 58 12/27/16 04:00 97.8 15 165/79 (107) 94 12/26/16 22:21 21 12/26/16 19:00 Room Air Intake and Output 12/27/16 12/27/16 12/28/16 08:00 16:00 00:00 Output Total 700 ml Balance -700 ml Result Diagram: 12/24/16 1830 12/27/16 0421 Imaging Last [address] 12/24/161819 Signed Impressions: Service Date/Time: Saturday, December 24, 2016 18:48 - CONCLUSION: 1. Abnormal edema in the left frontoparietal region associated with a 2 cm hemorrhage most characteristic of a partially hemorrhagic infarct with localized mass effect and sulcal effacement. No significant midline shift. Balbir Melvin MD Chest X-Ray 12/24/161819 Signed Impressions: Service Date/Time: Saturday, December 24, 2016 18:43 - CONCLUSION: 1. Stable mild cardiomegaly. Clear lungs. Lew Ribeiro Jr., MD Objective Remarks GENERAL: Well-nourished, well-developed patient. SKIN: Warm and dry. HEAD: Normocephalic. NECK: Supple, trachea midline. Airway widely patent. No obstruction. CARDIOVASCULAR: Regular rate and rhythm without murmurs, gallops, or rubs. No JVD. RESPIRATORY: Breath sounds equal bilaterally. No accessory muscle use. No adventitious sounds. GASTROINTESTINAL: Abdomen soft, non-tender, nondistended. BS active. MUSCULOSKELETAL: No cyanosis, or edema. Well perfsued. NEURO EXAM: Moves to command. Conversant. Forgetful. Fine motor function right hand impaired. A/P Assessment and Plan Intracranial bleed - No surgical intervention indicated - Blood pressure control - Supportive care - Monitor neuro checks in the unit - Repeat CT head 24 hours - PT and OT eval and treat as tolerated Hypertension - Nicardipine drip - Labetalol and hydralazine when necessary to keep SBP less than 150 Diabetes - Hold metformin while in the ICU - Insulin sliding scale - Add levemir 5u bid Dyslipidemia - Atorvastatin DVT GI prophylaxis - Teds SCDs - No pharmacological DVT prophylaxis due to ICH - Pepcid Overall impression: Stable respiratory and hemodynamic function. Aram Russell MD Dec 27, 2016 08:30
[2016-12-27] MEDS: FAMOTIDINE 20 MG/2 ML VIAL IV PUSH SCH ×2 (08:35→21:21)
[2016-12-27] MEDS: SODIUM CHLORIDE 0.9% FLUSH 10 ML FLUSH IV FLUSH SCH (08:35)
[2016-12-27] MEDS: PANTOPRAZOLE SOD 40 MG DELAYED RELEASE TAB PO SCH (08:35)
[2016-12-27] MEDS: levETIRAcetam 500 MG TAB PO SCH ×2 (08:35→21:21)
[2016-12-27] MEDS: DOCUSATE SODIUM 50 MG/SENNA 8.6 MG TAB PO SCH (08:35)
[2016-12-27] MEDS: INSULIN DETEMIR 100 UNITS/ML VIAL SQ SCH ×2 (10:09→21:21)
[2016-12-27] MEDS ORDERED: INSULIN NovoLIN REGULAR SUPPLEMENTAL SCALE ONE (14:12)
[2016-12-27] MEDS ORDERED: INSULIN HUMAN REGULAR 1,000 UNITS/10 ML VIAL ONE (14:17)
[2016-12-27] MEDS ORDERED: ARTIFICIAL TEARS OPTH OINT 3.5 APPLIC/3.5 GM TUBO ONE (14:17)
[2016-12-27] MEDS ORDERED: BACITRACIN TOP OINT 15 GM TUBE ONE (14:21)
[2016-12-27] MEDS ORDERED: GENTAMICIN SULFATE 80 MG/2 ML VIAL ONE (14:21)
[2016-12-27] MEDS ORDERED: GELFOAM SIZE 100 ONE (14:21)
[2016-12-27] MEDS ORDERED: THROMBIN (TOPICAL) 5,000 UNIT VIAL ONE (14:21)
[2016-12-27] MEDS ORDERED: LIDOCAINE 1%/EPINEPHrine 1:100,000 SOLN 20 ML VIAL ONE (15:11)
[2016-12-27] MEDS ORDERED: levETIRAcetam 500 MG/5 ML VIAL IV ONE (15:49)
[2016-12-27] MEDS ORDERED: ceFAZolin 2 GM PREMIX 50 ML IV ONE (16:15)
[2016-12-27] MEDS ORDERED: POTASSIUM CHLOR 20 MEQ PREMIX 100 ML IV PRN (16:15)
[2016-12-27] MEDS ORDERED: BISACODYL 10 MG SUPP RECTAL PRN (16:15)
[2016-12-27] MEDS ORDERED: SODIUM CHLORIDE 0.9% FLUSH 5 ML FLUSH IVF PRN (16:15)
[2016-12-27] MEDS ORDERED: ACETAMINOPHEN/HYDROcodone 325 MG/10 MG TAB PO PRN (16:15)
[2016-12-27] MEDS ORDERED: MAGNESIUM SULFATE INJ 4 GM in SODIUM CHLORIDE 0.9% INJ 100 ML IV PRN (16:15)
[2016-12-27] MEDS ORDERED: ONDANSETRON HCL 4 MG/2 ML VIAL IV PUSH PRN (16:15)
[2016-12-27] MEDS ORDERED: CALCIUM GLUCONATE 10% 1 GM/10 ML VIAL IV PRN (16:15)
[2016-12-27] MEDS ORDERED: VANCOMYCIN INJ 1,000 MG in SODIUM CHLOR 0.9% 250 ML INJ 250 ML IV ONE (16:15)
[2016-12-27] MEDS ORDERED: GLUCAGON 1 MG/ML VIAL OTHER PRN (16:15)
[2016-12-27] MEDS ORDERED: MORPHINE SULFATE 4 MG/ML INJ IV PUSH PRN ×2 (16:15)
[2016-12-27] MEDS ORDERED: DEXTROSE 50% IN WATER 50 ML VIAL(D50) IV PUSH PRN (16:15)
--- NOTE | 2016-12-27 16:17 | PD.OP ---
Operative Report Date of Surgery: Dec 27, 2016 Preoperative Diagnosis: Left parietal ring enhancing mass Postoperative Diagnosis: High grade glioma Procedure: Stereotactic biopsy of left parietal ring enhancing mass Anesthesia: general Surgeon: Lion Desir Cement Tile Maker(s): Marjorie Kauffman Operation and Findings: INDICATIONS FOR THE PROCEDURE Mr Rooney is a 86 year-old male who presented with neurological findings and was found to have a left parietal supratentorial ring enhancing mass. The lesion had abnormal signal intensity and characteristics consistent with a possible neoplastic process. A stereotactic biopsy of the lesions was indicated. The [id number] details of the procedure, its indications, alternatives, risks and potential complications were fully discussed with the patient. The patient fully understood. All questions were answered. No guarantees were given. The patient voiced requesting the procedure and provided informed consents. The patient was offered the alternative of not having aggressive management. DETAILS OF THE SURGICAL PROCEDURE Preoperative planning Prior to the surgery the patient underwent an MRI of the brain according to the stereotactic protocol. The information from the MRI scan was transferred to the operating room via the hospital network and the preoperative planning of the lesion was made. A tosin was made at the patients operative site according to the hospital policy. Surgical positioning The patient was then brought to the operating room. After induction of general anesthesia endotracheal intubation was performed. A Che catheter, bilateral MONICA hose, and sequential compression devices were placed and kept throughout the procedure. The patient was positioned supine on a 3080 table over a soft mattress. All pressure points were carefully padded with an egg crate mattress. The eyes were tapped shut after ointment was applied by the anesthesiologist to prevent corneal abrasion. A Rohit hugger was placed over the exposed lower body to maintain control of the core body temperature. The head was held in rigid fixation using the [place] head of integrated media. Intraoperative registration The rigid body was attached to the [place] headholder. Intraoperative registration was then performed with the [facility]. The lesion was located in the three planes, sagittal, axial and coronal. An entry point was selected in the scalp. Surgical Approach and stereotactic biopsy The skin was prepped and draped in the usual sterile fashion. A linear incision in the site selected on the left parietal region, according to the planning was outlined. The area was infiltrated with 1% lidocaine with epinephrine 1:100,000 dilution. A skin incision was made with a #10 blade. Small subgaleal bleeders were controlled with a bipolar a small self-retaining retractor was placed in the incision. The fascia and muscle were incised with a Bovie and retracted at each side. The [place]as Cullen was brought into the field and a bur hole was made with an AM-8 drill bit. The dura matter was coagulated with a bipolar and opening increased for pressure and a very small corticotomy performed. At this point of the procedure the stereotactic biopsy arm was brought into the field and secured to the head of integrated media. The instrument and electrical technician was brought into the field, and the trajectory on the biopsy arm was created following the previously selected trajectory. Then, a stereotactic needle was carefully inserted into the brain at the center of the lesion and by gentle aspiration two initial biopsies were obtained, one of which was sent to the lab for frozen section, while a second was also sent to the lab, to be used in case of necessity if the first was non diagnostic. Meanwhile, additional specimens were obtained for permanent histologic analysis. At this point in the procedure , after waiting for awhile, the frozen section was called in, and reported as consistent with a high grade glioma. The biopsy needle was carefully removed and the stereotactic device was removed. The incision was irrigated with a large amount of saline. A piece of Gelfoam was placed over the surface of the brain and a bur hole cover was placed. The incision was closed in layers. 3-0 Vicryl with interrupted sutures were used to close the fascial layers and galea. The skin was closed with sravan. A sterile dressing was applied. At the end of the procedure the sponge, needle and instrument counts were all correct. Estimated blood loss was minimal. No blood transfusion was given. The patient received preoperative prophylactic antibiotics. No intraoperative complications occurred. The patient was transferred to the recovery room in stable condition. Lion Desir MD Dec 27, 2016 16:17
[2016-12-27] MEDS ORDERED: ceFAZolin INJ 1,000 MG VIAL IV ONE (16:26)
[2016-12-27] MEDS ORDERED: DO NOT ADM ANY ANTICOAGULANT DRUGS PRN (16:35)
[2016-12-27] MEDS: NS + KCL 20 MEQ INJ 1,000 ML IV SCH (16:55)
[2016-12-27] MEDS ORDERED: SODIUM CHLOR 0.9% 1000 ML INJ 1,000 ML IV SCH (17:00)
[2016-12-27] MEDS: SODIUM CHLORIDE 0.9% FLUSH 5 ML FLUSH IVF SCH (21:00)
[2016-12-27] MEDS: CHLORHEXIDINE GLUCONATE 4% SOLN 120 ML BTL TOP SCH ×2 (21:00)
[2016-12-27] MEDS: levETIRAcetam INJ 500 MG in SODIUM CHLORIDE 0.9% INJ 100 ML IV SCH (21:00)
[2016-12-27] MEDS: DOCUSATE SODIUM 100 MG CAP PO SCH (21:21)
[2016-12-27] MEDS: ceFAZolin 2 GM PREMIX 50 ML IV SCH (23:17)
[2016-12-28] VITALS (12 sets, daily range): BP systolic 137–167; BP diastolic 63–72; PULSE 20–90; RESP 16–25; TEMP 97.7–98.5; O2SAT 93–100
[2016-12-28] MEDS: NS + KCL 20 MEQ INJ 1,000 ML IV SCH ×3 (03:45→23:16)
[2016-12-28] MEDS: CHLORHEXIDINE GLUCONATE 2 % 1 PACK (2 CLOTHS) TOP SCH (04:00)
[2016-12-28 05:04] LABS: AUTOMATED NEUTROPHIL # 13.8 TH/MM3 (1.8-7.7); HEMO FLAGS DIFF FINAL; LYMPH % 4.5 % (9.0-44.0); LYMPHOCYTE # 0.7 TH/MM3 (1.0-4.8); MEAN CORPUSCULAR HEMOGLOBIN 32.5 PG (27.0-34.0); MEAN CORPUSCULAR HGB CONC 34.6 % (32.0-36.0); MONO % 3.2 % (0.0-8.0); NEUT % 92.3 % (16.0-70.0); PLATELET COUNT 168 TH/MM3 (150-450); RED BLOOD COUNT 3.83 MIL/MM3 (4.50-5.90); WHITE BLOOD COUNT 14.9 TH/MM3 (4.0-11.0)
[2016-12-28 05:23] LABS: BICARBONATE 23.5 MEQ/L (21.0-32.0); POTASSIUM 4.3 MEQ/L (3.5-5.1)
[2016-12-28] MEDS: DEXAMETHASONE 4 MG TAB PO SCH ×4 (06:13→23:15)
[2016-12-28] MEDS: ceFAZolin 2 GM PREMIX 50 ML IV SCH ×2 (06:14→14:03)
[2016-12-28] MEDS ORDERED: PANTOPRAZOLE SODIUM 40 MG VIAL IVP SCH (09:00)
[2016-12-28] MEDS: SODIUM CHLORIDE 0.9% FLUSH 5 ML FLUSH IVF SCH ×2 (09:00→20:31)
[2016-12-28] MEDS: levETIRAcetam INJ 500 MG in SODIUM CHLORIDE 0.9% INJ 100 ML IV SCH ×2 (10:37→20:30)
[2016-12-28] MEDS: PANTOPRAZOLE SOD 40 MG DELAYED RELEASE TAB PO SCH (10:37)
[2016-12-28] MEDS: FAMOTIDINE 20 MG/2 ML VIAL IV PUSH SCH ×2 (10:38→20:30)
[2016-12-28] MEDS: levETIRAcetam 500 MG TAB PO SCH ×2 (10:38→20:31)
[2016-12-28] MEDS: DOCUSATE SODIUM 100 MG CAP PO SCH ×2 (10:38→20:31)
[2016-12-28] MEDS: INSULIN DETEMIR 100 UNITS/ML VIAL SQ SCH ×2 (10:38→20:31)
[2016-12-28] MEDS: INSULIN ASPART SUPPLEMENTAL SCALE SQ SCH ×4 (11:13→21:00)
--- NOTE | 2016-12-28 12:52 | HHI.CCPN ---
Subjective Remarks/Hospital Course 86-year-old [place] Islander-speaking male with history of diabetes, hypertension, hyperlipidemia presents with complaints of right upper and b/l lower extremity numbness over the past 2 weeks. Patient reports that over the past 2 weeks, he would have episodes of numbness and tingling to his right arm his right lower extremity. Reports that symptoms would last about 2 hours and resolve on its own. He denies any headache or dizziness at this time, denies any vision changes. Denies any fall or trauma. CT of the head shows abnormal edema in the left frontoparietal region associated with a 2 cm hemorrhage most characteristic of a partially hemorrhagic infarct with localized mass effect and sulcal effacement. No significant midline shift. 12/25: Stable hemodynamics. Conversant, forgetful, concern for swallow. 12/26: Protects airway. Breathing comfortably. Short term memory impaired. Left hemispheric rim-enhancing mass on MRI - suspicious for glioblastoma. 12/27: Moves 4 limbs but coordination with right hand movements is impaired - can't brush his teeth. Worsening glucose intolerance, will add levemir bid. 12/28: Stereotactic biopsy performed 12/27 - awaiting results. Glucose control moderately improved. Objective Vital Signs Date Time Temp Pulse Resp B/P (MAP) Pulse Ox O2 Delivery O2 Flow Rate FiO2 12/28/16 06:00 55 12/28/16 04:00 98.0 18 148/65 (92) 93 12/27/16 19:44 Room Air 12/27/16 16:40 6 12/26/16 22:21 21 Intake and Output 12/28/16 12/28/16 12/29/16 08:00 16:00 00:00 Intake Total 1480 ml Output Total 525 ml Balance 955 ml Result Diagram: 12/28/16 0431 12/28/16 0431 Imaging Last [address] 12/24/161819 Signed Impressions: Service Date/Time: Saturday, December 24, 2016 18:48 - CONCLUSION: 1. Abnormal edema in the left frontoparietal region associated with a 2 cm hemorrhage most characteristic of a partially hemorrhagic infarct with localized mass effect and sulcal effacement. No significant midline shift. Balbir Melvin MD Chest X-Ray 12/24/161819 Signed Impressions: Service Date/Time: Herman, December 24, 2016 18:43 - CONCLUSION: 1. Stable mild cardiomegaly. Clear lungs. Lew Ribeiro Jr., MD Objective Remarks GENERAL: Well-nourished, well-developed patient. SKIN: Warm and dry. HEAD: Normocephalic. NECK: Supple, trachea midline. Airway widely patent. No obstruction. CARDIOVASCULAR: Regular rate and rhythm without murmurs, gallops, or rubs. No JVD. RESPIRATORY: Breath sounds equal bilaterally. No accessory muscle use. No adventitious sounds. GASTROINTESTINAL: Abdomen soft, non-tender, nondistended. BS active. MUSCULOSKELETAL: No cyanosis, or edema. Well perfused. NEURO EXAM: Moves to command. Conversant. Remains forgetful. Fine motor function right hand impaired. A/P Assessment and Plan Intracranial bleed - No surgical intervention indicated - Blood pressure control - Supportive care - Monitor neuro checks in the unit - Repeat CT head 24 hours - PT and OT eval and treat as tolerated Brain mass - Biopsy 12/27, results pending. Hypertension - Nicardipine drip - Labetalol and hydralazine when necessary to keep SBP less than 150 Diabetes - Hold metformin while in the ICU - Insulin sliding scale - Add levemir 5u bid Dyslipidemia - Atorvastatin DVT GI prophylaxis - Teds SCDs - No pharmacological DVT prophylaxis due to ICH - Pepcid Overall impression: Stable respiratory and hemodynamic function. Biopsy result pending. Glucose control improved. Aram Russell MD Dec 28, 2016 12:52
[2016-12-28] MEDS: hydrALAZINE HCL 20 MG/ML VIAL IV PUSH PRN (13:45)
--- NOTE | 2016-12-28 16:34 | HHI.NSPN ---
(Claudia Menendez) Note Status Status: Progress Note (Claudia Menendez) Interval History Interval History 86 year old male who presents with 2 weeks complaint of numbness and tingling in his right upper and lower extremity. CT Brain on arrival showed a 2 cm left parietal intraparenchymal hemorrhage. 12/25: in macedonian, he denies headaches and reports intermittent paralysis in the right upper extremity 12/26: dw daughter and patient they would like to proceed with biopsy first. neuro stable overnight. EEG neg for seizures 12/28: pt seen this morning during rounds. s/p stereotactic biopsy of brain mass. patient doing well. surgical pain controlled, moving ext well. denies headaches, vomiting, seizures. (Claudia Menendez) Labs, Micro, & Vital Signs Results Date Time Temp Pulse Resp B/P (MAP) Pulse Ox O2 Delivery O2 Flow Rate FiO2 12/28/16 16:00 90 12/28/16 16:00 98.5 85 25 152/66 (94) 97 12/28/16 14:00 76 12/28/16 12:00 63 12/28/16 12:00 98.3 63 16 167/72 (103) 97 12/28/16 10:00 54 12/28/16 08:00 98.2 68 21 152/66 (94) 96 12/28/16 08:00 60 12/28/16 07:00 98 Room Air 12/28/16 06:00 55 12/28/16 04:00 98.0 57 18 148/65 (92) 93 12/28/16 04:00 57 12/28/16 02:00 20 12/28/16 00:00 97.7 55 18 137/63 (87) 98 12/28/16 00:00 55 12/27/16 22:00 62 12/27/16 20:00 97.6 65 20 145/65 (91) 98 12/27/16 20:00 97.6 65 20 145/65 (91) 98 12/27/16 20:00 65 12/27/16 19:44 97 Room Air 12/27/16 18:05 97.6 60 20 160/80 (106) 95 12/27/16 18:00 58 12/27/16 17:47 97.5 62 24 160/80 (106) 95 12/27/16 17:15 98.0 65 18 141/68 (92) 96 Room Air 12/27/16 17:00 66 20 139/66 (90) 95 Room Air 12/27/16 16:45 70 22 156/72 (100) 96 Room Air 12/27/16 16:40 97.8 72 20 168/71 (103) 98 Simple Mask 6 Constitutional Vital Signs Date Time Temp Pulse Resp B/P (MAP) Pulse Ox O2 Delivery O2 Flow Rate FiO2 12/28/16 16:00 90 12/28/16 16:00 98.5 85 25 152/66 (94) 97 12/28/16 14:00 76 12/28/16 12:00 63 12/28/16 12:00 98.3 63 16 167/72 (103) 97 12/28/16 10:00 54 12/28/16 08:00 98.2 68 21 152/66 (94) 96 12/28/16 08:00 60 12/28/16 07:00 98 Room Air 12/28/16 06:00 55 12/28/16 04:00 98.0 57 18 148/65 (92) 93 12/28/16 04:00 57 12/28/16 02:00 20 12/28/16 00:00 97.7 55 18 137/63 (87) 98 12/28/16 00:00 55 12/27/16 22:00 62 12/27/16 20:00 97.6 65 20 145/65 (91) 98 12/27/16 20:00 97.6 65 20 145/65 (91) 98 12/27/16 20:00 65 12/27/16 19:44 97 Room Air 12/27/16 18:05 97.6 60 20 160/80 (106) 95 12/27/16 18:00 58 12/27/16 17:47 97.5 62 24 160/80 (106) 95 12/27/16 17:15 98.0 65 18 141/68 (92) 96 Room Air 12/27/16 17:00 66 20 139/66 (90) 95 Room Air 12/27/16 16:45 70 22 156/72 (100) 96 Room Air 12/27/16 16:40 97.8 72 20 168/71 (103) 98 Simple Mask 6 (Claudia Menendez) Review of Systems Constitutional: DENIES: Fever, Chills Cardiovascular: DENIES: Chest pain Gastrointestinal: DENIES: Nausea, Vomiting Neurologic: DENIES: Headache (Claudia Menendez) Physical Exam Mr. Rooney is alert. Speech is fluent in Nepalese, no dysarthria. Follows commands in Nepalese. Surgical incision is dry with clean dressing in place. Cranial nerve examination: pupils equal, round, and reactive to light. Extra- ocular movements are intact. Facial motor are normal and symmetrical. Neck is soft and supple. Muscle strength currently moves all four extremities well, mild right upper extremity pronator drift. Cerebellar examination is intact (Claudia Menendez) Medications Current Medications Current Medications Medications (Trade) Dose Ordered Sig/Jimmy Route PRN Reason Start Time Stop Time Status Last Admin Dose Admin Morphine Sulfate (Morphine Inj) 2 mg Q2H PRN IV PAIN 6-10 12/24/16 19:30 Famotidine (Pepcid Inj) 20 mg Q12HR IV PUSH 12/24/16 21:00 12/28/16 10:38 Albuterol/ Ipratropium (Duoneb Neb) 1 ampule Q2HR NEB PRN INH WHEEZING 12/24/16 19:15 Miscellaneous Information 1 Q361D XX 12/24/16 19:15 Chlorhexidine Gluconate (Chlorhexidine 2% Cloth) 3 pack Taper DAILY@04 TOP 12/25/16 04:00 12/21/17 03:59 12/25/16 06:17 Chlorhexidine Gluconate (Chlorhexidine 2% Cloth) 3 pack UNSCH PRN TOP HYGIENIC CARE 12/24/16 19:15 Magnesium Hydroxide (Milk Of Magnesia Liq) 30 ml Q12H PRN PO Mild constipation 12/24/16 19:15 Sennosides (Senokot) 17.2 mg Q12H PRN PO Moderate constipation 12/24/16 19:15 Lactulose (Lactulose Liq) 30 ml DAILY PRN PO SEVERE CONSITIPATION 12/24/16 19:15 Nicardipine HCl 25 mg/Sodium Chloride 250 ml @ 50 mls/hr TITRATE PRN IV Blood pressure management 12/24/16 19:30 Hydralazine HCl (Apresoline Inj) 20 mg Q4H PRN IV PUSH SBP>160, DBP>90 12/24/16 19:30 12/28/16 13:45 Labetalol HCl (Trandate Inj) 10 mg Q4H PRN IV PUSH SBP>160, DBP>90 12/24/16 19:30 12/25/16 20:26 Levetriacetam (Keppra) 500 mg Q12HR PO 12/25/16 21:00 12/28/16 10:38 Dexamethasone (Decadron) 4 mg Q6HR PO 12/25/16 18:00 12/28/16 12:12 Chlorhexidine Gluconate (Hibiclens 4% Top Soln) 1 applic HS TOP 12/26/16 21:00 12/28/16 21:01 12/26/16 21:00 Potassium Chloride/Sodium Chloride 1,000 ml @ 100 mls/hr Q10H IV 12/27/16 16:03 12/28/16 03:45 IV Flush (NS Flush) 2 ml UNSCH PRN IVF FLUSH AFTER USING IV ACCESS 12/27/16 16:15 IV Flush (NS Flush) 2 ml BID IVF 12/27/16 21:00 12/28/16 09:00 Levetriacetam 500 mg/Sodium Chloride 105 ml @ 400 mls/hr Q12H IV 12/27/16 21:00 12/28/16 10:37 Bisacodyl (Dulcolax Supp) 10 mg DAILY PRN RECTAL CONSTIPATION 12/27/16 16:15 Docusate Sodium (Colace) 100 mg BID PO 12/27/16 21:00 12/28/16 10:38 Pantoprazole Sodium (Protonix) 40 mg DAILY PO 12/28/16 09:00 12/28/16 10:37 Pantoprazole Sodium (Protonix Inj) 40 mg DAILY IVP 12/28/16 09:00 12/28/16 10:37 Ondansetron HCl (Zofran Inj) 4 mg Q6H PRN IV PUSH NAUSEA OR VOMITING 12/27/16 16:15 Calcium Gluconate (Calcium Gluconate Inj) 1 gm UNSCH PRN IV SEE LABEL COMMENTS 12/27/16 16:15 Potassium Chloride 100 ml @ 50 mls/hr UNSCH PRN IV POTASSIUM LESS THAN 4 12/27/16 16:15 Magnesium Sulfate 4 gm/Sodium Chloride 108 ml @ 108 mls/hr UNSCH PRN IV MAGNESIUM LESS THAN 2 12/27/16 16:15 Acetaminophen/ Hydrocodone Bitart ([place] 10-325 Mg) 1 tab Q4H PRN PO PAIN SCALE 1 TO 5 12/27/16 16:15 Acetaminophen/ Hydrocodone Bitart ([place] 10-325 Mg) 2 tab Q4H PRN PO PAIN SCALE 6 TO 10 12/27/16 16:15 Morphine Sulfate (Morphine Inj) 2 mg Q2H PRN IV PUSH PAIN SCALE 1 TO 6 12/27/16 16:15 Morphine Sulfate (Morphine Inj) 4 mg Q2H PRN IV PUSH PAIN SCALE 7 TO 10 12/27/16 16:15 Acetaminophen (Tylenol) 650 mg Q4H PRN PO TEMPERATURE > 101.5 F 12/27/16 16:15 Chlorhexidine Gluconate (Hibiclens 4% Top Soln) 1 applic HS TOP 12/27/16 21:00 12/28/16 21:01 Dextrose (D50w (Vial) Inj) 50 ml UNSCH PRN IV PUSH HYPOGLYCEMIA-SEE COMMENTS 12/27/16 16:15 Glucagon (Glucagon Inj) 1 mg UNSCH PRN OTHER HYPOGLYCEMIA-SEE COMMENTS 12/27/16 16:15 Insulin Aspart (NovoLOG SUPPLEMENTAL SCALE) 1 ACHS SLIDING SCALE SQ 12/27/16 17:00 12/28/16 13:05 Miscellaneous Information ALL NURSING DEPARTME... UNSCH PRN .XX SEE LABEL COMMENTS 12/27/16 16:35 12/28/16 16:34 Insulin Detemir (Levemir Inj) 8 units Q12HR SQ 12/28/16 21:00 (Claudia Menendez) Medical Decision Making MDM Remarks 86 year old male with left parietal enhancing mass suspected for glioblastoma possible intermittent focal seizures with report of intermittent right upper extremity paralysis, EEG 12/25 neg for seizures s/p stereotactic biopsy of brain mass (Claudia Menendez) Plan Plan Remarks f/u pathology of brain mass post-op pain control clear for PT, mobilize OOB cont Decadron, Protonix for stress ulcer prophylaxis cont neuro checks clear to transfer out of unit to 5N near nursing station (Claudia Menendez) Attending Statement The exam, history, and the medical decision-making described in the above note were completed with the assistance of the mid-level provider. I reviewed and agree with the findings presented. I attest that I had a [id number] encounter with the patient on the same day, and personally performed and documented my assessment and findings in the medical record. (Lion Desir MD) Claudia Menendez Dec 28, 2016 16:34 Lion Desir MD Dec 31, 2016 22:19
[2016-12-28] MEDS: CHLORHEXIDINE GLUCONATE 4% SOLN 120 ML BTL TOP SCH ×2 (20:47)
[2016-12-29] VITALS (7 sets, daily range): BP systolic 142–207; BP diastolic 65–92; PULSE 68–88; RESP 16–20; TEMP 97.2–98.3; O2SAT 93–97
[2016-12-29] MEDS: CHLORHEXIDINE GLUCONATE 2 % 1 PACK (2 CLOTHS) TOP SCH (04:00)
[2016-12-29] MEDS: ACETAMINOPHEN 325 MG TAB PO PRN (05:27)
[2016-12-29] MEDS: DEXAMETHASONE 4 MG TAB PO SCH (05:28)
[2016-12-29] MEDS: ENALAPRILAT 1.25 MG/ML VIAL IV PRN ×2 (05:38→23:15)
[2016-12-29] MEDS: INSULIN ASPART SUPPLEMENTAL SCALE SQ SCH ×4 (08:00→21:00)
[2016-12-29] MEDS: NS + KCL 20 MEQ INJ 1,000 ML IV SCH ×2 (08:03→18:03)
[2016-12-29] MEDS: PANTOPRAZOLE SOD 40 MG DELAYED RELEASE TAB PO SCH (09:00)
[2016-12-29] MEDS: levETIRAcetam 500 MG TAB PO SCH ×2 (09:00→20:54)
[2016-12-29] MEDS: DOCUSATE SODIUM 100 MG CAP PO SCH ×2 (09:00→20:54)
[2016-12-29] MEDS: SODIUM CHLORIDE 0.9% FLUSH 5 ML FLUSH IVF SCH ×2 (09:00→21:00)
[2016-12-29] MEDS: INSULIN DETEMIR 100 UNITS/ML VIAL SQ SCH ×2 (09:00→21:00)
[2016-12-29] MEDS ORDERED: WALKER WHEELS/F1 MIS (09:48)
[2016-12-29] MEDS ORDERED: INFLUENZA VIRUS VACCINE (QUADRIVALENT) 0.5 ML SYR IM ONE (10:00)
[2016-12-29] MEDS ORDERED: PNEUMOCOCCAL POLYVALENT INJ 25 MCG/0.5 ML SYR IM ONE (10:00)
--- NOTE | 2016-12-29 10:08 | HHI.NSPN ---
(Claudia Menendez) Note Status Status: Progress Note (Claudia Menendez) Interval History Interval History 86 year old male who presents with 2 weeks complaint of numbness and tingling in his right upper and lower extremity. CT Brain on arrival showed a 2 cm left parietal intraparenchymal hemorrhage. 12/25: in vietnamese, he denies headaches and reports intermittent paralysis in the right upper extremity 12/26: dw daughter and patient they would like to proceed with biopsy first. neuro stable overnight. EEG neg for seizures 12/28: pt seen this morning during rounds. s/p stereotactic biopsy of brain mass. patient doing well. surgical pain controlled, moving ext well. denies headaches, vomiting, seizures. 12/29: doing well, neuro stable overnight. patho pending. c/o dysuria (Claudia Menendez) Labs, Micro, & Vital Signs Results Date Time Temp Pulse Resp B/P (MAP) Pulse Ox O2 Delivery O2 Flow Rate FiO2 12/29/16 09:33 97.6 83 16 207/92 (130) 95 12/29/16 05:30 98.3 68 17 175/81 (112) 94 12/29/16 00:20 97.6 88 19 145/65 (91) 95 12/28/16 21:00 88 12/28/16 21:00 95 Room Air 12/28/16 20:50 98.1 84 17 147/68 (94) 94 12/28/16 17:30 Nasal Cannula 2.00 12/28/16 16:00 90 12/28/16 16:00 98.5 85 25 152/66 (94) 97 12/28/16 14:00 76 12/28/16 12:00 63 12/28/16 12:00 98.3 63 16 167/72 (103) 97 Constitutional Vital Signs Date Time Temp Pulse Resp B/P (MAP) Pulse Ox O2 Delivery O2 Flow Rate FiO2 12/29/16 09:33 97.6 83 16 207/92 (130) 95 12/29/16 05:30 98.3 68 17 175/81 (112) 94 12/29/16 00:20 97.6 88 19 145/65 (91) 95 12/28/16 21:00 88 12/28/16 21:00 95 Room Air 12/28/16 20:50 98.1 84 17 147/68 (94) 94 12/28/16 17:30 Nasal Cannula 2.00 12/28/16 16:00 90 12/28/16 16:00 98.5 85 25 152/66 (94) 97 12/28/16 14:00 76 12/28/16 12:00 63 12/28/16 12:00 98.3 63 16 167/72 (103) 97 (Claudia Menendez) Review of Systems Constitutional: DENIES: Fever, Chills Cardiovascular: DENIES: Chest pain Genitourinary: COMPLAINS OF: Dysuria Neurologic: COMPLAINS OF: Localized weakness (mild right arm), Paresthesias, DENIES: Headache (Claudia Menendez) Physical Exam Mr. Rooney is alert. Speech is fluent in Emirati, no dysarthria. Follows commands in Emirati. Surgical incision is healing well, sravan intact. Cranial nerve examination: pupils equal, round, and reactive to light. Extra- ocular movements are intact. Facial motor are normal and symmetrical. Neck is soft and supple. Muscle moves all four extremities well with mild gross weakness in the right arm Sensory: complains of numbness in right arm Cerebellar examination is intact (Claudia Menendez) Medications Current Medications Current Medications Medications (Trade) Dose Ordered Sig/Jimmy Route PRN Reason Start Time Stop Time Status Last Admin Dose Admin Morphine Sulfate (Morphine Inj) 2 mg Q2H PRN IV PAIN 6-10 12/24/16 19:30 Famotidine (Pepcid Inj) 20 mg Q12HR IV PUSH 12/24/16 21:00 12/28/16 20:30 Albuterol/ Ipratropium (Duoneb Neb) 1 ampule Q2HR NEB PRN INH WHEEZING 12/24/16 19:15 Miscellaneous Information 1 Q361D XX 12/24/16 19:15 Chlorhexidine Gluconate (Chlorhexidine 2% Cloth) 3 pack Taper DAILY@04 TOP 12/25/16 04:00 12/21/17 03:59 10/23/17 06:17 Chlorhexidine Gluconate (Chlorhexidine 2% Cloth) 3 pack UNSCH PRN TOP HYGIENIC CARE 12/24/16 19:15 Magnesium Hydroxide (Milk Of Magnesia Liq) 30 ml Q12H PRN PO Mild constipation 12/24/16 19:15 Sennosides (Senokot) 17.2 mg Q12H PRN PO Moderate constipation 12/24/16 19:15 Lactulose (Lactulose Liq) 30 ml DAILY PRN PO SEVERE CONSITIPATION 12/24/16 19:15 Nicardipine HCl 25 mg/Sodium Chloride 250 ml @ 50 mls/hr TITRATE PRN IV Blood pressure management 12/24/16 19:30 Hydralazine HCl (Apresoline Inj) 20 mg Q4H PRN IV PUSH SBP>160, DBP>90 12/24/16 19:30 12/28/16 13:45 Labetalol HCl (Trandate Inj) 10 mg Q4H PRN IV PUSH SBP>160, DBP>90 12/24/16 19:30 12/25/16 20:26 Levetriacetam (Keppra) 500 mg Q12HR PO 12/25/16 21:00 12/28/16 20:31 Dexamethasone (Decadron) 4 mg Q6HR PO 12/25/16 18:00 12/29/16 05:28 Potassium Chloride/Sodium Chloride 1,000 ml @ 100 mls/hr Q10H IV 12/27/16 16:03 12/28/16 23:16 IV Flush (NS Flush) 2 ml UNSCH PRN IVF FLUSH AFTER USING IV ACCESS 12/27/16 16:15 IV Flush (NS Flush) 2 ml BID IVF 12/27/16 21:00 12/28/16 20:31 Levetriacetam 500 mg/Sodium Chloride 105 ml @ 400 mls/hr Q12H IV 12/27/16 21:00 12/28/16 20:30 Bisacodyl (Dulcolax Supp) 10 mg DAILY PRN RECTAL CONSTIPATION 12/27/16 16:15 Docusate Sodium (Colace) 100 mg BID PO 12/27/16 21:00 12/28/16 20:31 Pantoprazole Sodium (Protonix) 40 mg DAILY PO 12/28/16 09:00 12/28/16 10:37 Pantoprazole Sodium (Protonix Inj) 40 mg DAILY IVP 12/28/16 09:00 12/28/16 10:37 Ondansetron HCl (Zofran Inj) 4 mg Q6H PRN IV PUSH NAUSEA OR VOMITING 12/27/16 16:15 Calcium Gluconate (Calcium Gluconate Inj) 1 gm UNSCH PRN IV SEE LABEL COMMENTS 12/27/16 16:15 Potassium Chloride 100 ml @ 50 mls/hr UNSCH PRN IV POTASSIUM LESS THAN 4 12/27/16 16:15 Magnesium Sulfate 4 gm/Sodium Chloride 108 ml @ 108 mls/hr UNSCH PRN IV MAGNESIUM LESS THAN 2 12/27/16 16:15 Acetaminophen/ Hydrocodone Bitart ([place] 10-325 Mg) 1 tab Q4H PRN PO PAIN SCALE 1 TO 5 12/27/16 16:15 Acetaminophen/ Hydrocodone Bitart ([place] 10-325 Mg) 2 tab Q4H PRN PO PAIN SCALE 6 TO 10 12/27/16 16:15 Morphine Sulfate (Morphine Inj) 2 mg Q2H PRN IV PUSH PAIN SCALE 1 TO 6 12/27/16 16:15 Morphine Sulfate (Morphine Inj) 4 mg Q2H PRN IV PUSH PAIN SCALE 7 TO 10 12/27/16 16:15 Acetaminophen (Tylenol) 650 mg Q4H PRN PO TEMPERATURE > 101.5 F 12/27/16 16:15 12/29/16 05:27 Dextrose (D50w (Vial) Inj) 50 ml UNSCH PRN IV PUSH HYPOGLYCEMIA-SEE COMMENTS 12/27/16 16:15 Glucagon (Glucagon Inj) 1 mg UNSCH PRN OTHER HYPOGLYCEMIA-SEE COMMENTS 12/27/16 16:15 Insulin Aspart (NovoLOG SUPPLEMENTAL SCALE) 1 ACHS SLIDING SCALE SQ 12/27/16 17:00 12/28/16 21:00 Insulin Detemir (Levemir Inj) 8 units Q12HR SQ 12/28/16 21:00 12/28/16 20:31 Enalaprilat (Vasotec Inj) 1.25 mg Q6H PRN IV FOR SBP > 160 12/29/16 05:30 12/29/16 05:38 (Claudia Menendez) Medical Decision Making MDM Remarks 86 year old male with left parietal enhancing mass suspected for glioblastoma possible intermittent focal seizures with report of intermittent right upper extremity paralysis, EEG 12/25 neg for seizures s/p stereotactic biopsy of brain mass 12/27/16 (Claudia Menendez) Plan Plan Remarks f/u pathology of brain mass clear to dc from [facility] standpoint, f/u in office 01/08/17 for staple removal start Decadron wean, Protonix for stress ulcer prophylaxis dw Dr. Nunes, check UA for poss UTI Dr. Desir dw patient and daughter in vietnamese (Caludia Menendez) Attending Statement The exam, history, and the medical decision-making described in the above note were completed with the assistance of the mid-level provider. I reviewed and agree with the findings presented. I attest that I had a [id number] encounter with the patient on the same day, and personally performed and documented my assessment and findings in the medical record. (Lion Desir MD) Claudia Menendez Dec 29, 2016 10:08 Lion Desir MD Dec 31, 2016 22:20
[2016-12-29 10:24] LABS: BLOOD, URINE NEG (NEG); GLUCOSE,URINE 1000 mg/dL (NEG); KETONE, URINE TRACE mg/dL (NEG); NITRITE,URINE NEG (NEG); URINE COLOR LIGHT-YELLOW (YELLW/STRAW)
[2016-12-29 10:25] LABS: COMMENT (UR) CULT NOT INDICATED; CULTURE IF INDICATED CULT NOT INDICATED
[2016-12-29] MEDS: DEXAMETHASONE 1.5 MG TAB PO SCH ×3 (13:40→23:15)
--- NOTE | 2016-12-29 14:55 | HHI.FF ---
Face to Face Verification Diagnosis: (1) Lesion of left parietal lobe of brain (2) Physical deconditioning Physical Therapy Order: Evaluate and Treat, Improve ambulation, Strength and gait training Home Health Nursing Order: Medical education Signs/symptoms of disease process Nursing assessment with vital signs I have seen patient Yefri Rooney on 12/29/16. My clinical findings support the need for the requested home health care services because: Deconditioned w/ increased weakness Need for psychosocial assistance High risk of falls I certify that my clinical findings support that this patient is homebound because: Post-op weakness Unsteady gait/balance Magdy Nunes MD Dec 29, 2016 14:55
--- NOTE | 2016-12-29 15:03 | HHI.PR ---
Subjective Remarks seen with family at bedside patient awake and alert no complains- up and ambulated with walker right sided weakness no headaches, nausea or vomiting no voiding difficulties- discussed with them UA negative Objective Vitals Vital Signs Date Time Temp Pulse Resp B/P (MAP) Pulse Ox O2 Delivery O2 Flow Rate FiO2 12/29/16 13:33 97.3 84 20 142/67 (92) 96 12/29/16 09:33 97.6 83 16 207/92 (130) 95 12/29/16 05:30 98.3 68 17 175/81 (112) 94 12/29/16 00:20 97.6 88 19 145/65 (91) 95 12/28/16 21:00 88 12/28/16 21:00 95 Room Air 12/28/16 20:50 98.1 84 17 147/68 (94) 94 12/28/16 17:30 Nasal Cannula 2.00 12/28/16 16:00 90 12/28/16 16:00 98.5 85 25 152/66 (94) 97 I/O 12/28/16 12/28/16 12/28/16 12/29/16 12/29/16 12/29/16 07:00 15:00 23:00 07:00 15:00 23:00 Intake Total 1530 ml 500 ml 650 ml Output Total 525 ml 375 ml 550 ml Balance 1005 ml 125 ml 100 ml Intake Oral 480 ml 500 ml 650 ml IV Total 1050 ml Output Urine Total 525 ml 375 ml 550 ml # Voids 1 # Bowel Movements 0 0 Result Diagram: 12/28/16 0431 12/28/16 0431 Imaging Last Impressions Brain MRI 12/25/16 0000 Signed Impressions: Service Date/Time: Sunday, December 25, 2016 11:23 - CONCLUSION: 1. Rim-enhancing mass lesion in the high parietal left convexity with associated vasogenic edema and possible intralesional hemorrhage. Findings are concerning for possible GBM. 2. Despite the regional vasogenic edema, no significant midline shift. 3. Mild to moderate periventricular small vessel ischemic demyelination. 4. Probable 4.3 x 3.7 cm sebaceous type cyst in the scalp overlying the occipital bone, left para midline. Len Alberto MD Head CT 12/24/16 1820 Signed Impressions: Service Date/Time: Saturday, December 24, 2016 18:48 - CONCLUSION: 1. Abnormal edema in the left frontoparietal region associated with a 2 cm hemorrhage most characteristic of a partially hemorrhagic infarct with localized mass effect and sulcal effacement. No significant midline shift. Balbir Melvin MD Chest X-Ray 12/24/16 1820 Signed Impressions: Service Date/Time: Saturday, December 24, 2016 18:43 - CONCLUSION: 1. Stable mild cardiomegaly. Clear lungs. Lew Ribeiro Jr., MD Objective Remarks Mongolian speaking anicteric lungs clear regular rhythm abdomen soft extremities no edema right sided weakness ambulated with a walker- well Procedures stereotactic biopsy A/P Assessment and Plan 86 years old male Intracranial bleed- neuro stable - No surgical intervention indicated - Blood pressure control- change to po Lisinopril 40 mg po daily - home PT Brain mass- pathology - GBM - d/w daughter- OP ff up with Ms Pierre - continue Decadron with slow taper as op - d/w Ms José Menendez- neurosurgery - OP ff up with Karlee Kelly in 1 week Hypertension -- start on po Lisinorpil 40 mg daily Diabetes Mellitus type 2 - Metformin on hold- - Insulin sliding scale - Add levemir 8u bid- on Dexamethasone - daughter- - they check hisblood sugars at home Dyslipidemia - Atorvastatin DVT GI prophylaxis - Teds SCDs - No pharmacological DVT prophylaxis due to ICH - Pepcid CM< consult for home PT arrangement/ nursing/DME Magdy Nunes MD Dec 29, 2016 15:03
--- NOTE | 2016-12-29 15:31 | PD.ONC.PN ---
Subjective Subjective Remarks Afebrile overnight. Patient resting in bed in nad. Multiple family members at bedside. No complaints. Objective Data Date Time Temp Pulse Resp B/P (MAP) Pulse Ox O2 Delivery O2 Flow Rate FiO2 12/29/16 13:33 97.3 84 20 142/67 (92) 96 12/29/16 09:33 97.6 83 16 207/92 (130) 95 12/29/16 05:30 98.3 68 17 175/81 (112) 94 12/29/16 00:20 97.6 88 19 145/65 (91) 95 12/28/16 21:00 88 12/28/16 21:00 95 Room Air 12/28/16 20:50 98.1 84 17 147/68 (94) 94 12/28/16 17:30 Nasal Cannula 2.00 12/28/16 16:00 90 12/28/16 16:00 98.5 85 25 152/66 (94) 97 12/29/16 12/29/16 12/29/16 07:00 15:00 23:00 Intake Total 650 ml Output Total 550 ml Balance 100 ml Result Diagram: 12/28/16 0431 12/28/16 0431 Laboratory Results Laboratory Tests Test 12/29/16 10:00 Urine Color LIGHT-YELLOW Urine Turbidity CLEAR Urine pH 7.0 Urine Specific [place] 1.008 Urine Protein NEG mg/dL Urine Glucose (UA) 1000 mg/dL Urine Ketones TRACE mg/dL Urine Occult Blood NEG Urine Nitrite NEG Urine Bilirubin NEG Urine Urobilinogen LESS THAN 2.0 MG/DL Urine Leukocyte Esterase NEG Urine RBC LESS THAN 1 /hpf Urine WBC LESS THAN 1 /hpf Microscopic Urinalysis Comment CULT NOT INDICATED Administered Medications Medications (Trade) Dose Ordered Sig/Jimmy Route PRN Reason Start Time Stop Time Status Last Admin Dose Admin Chlorhexidine Gluconate (Chlorhexidine 2% Cloth) 3 pack Taper DAILY@04 TOP 12/25/16 04:00 12/21/17 03:59 12/25/16 06:17 Hydralazine HCl (Apresoline Inj) 20 mg Q4H PRN IV PUSH SBP>160, DBP>90 12/24/16 19:30 12/28/16 13:45 Labetalol HCl (Trandate Inj) 10 mg Q4H PRN IV PUSH SBP>160, DBP>90 12/24/16 19:30 12/25/16 20:26 Levetriacetam (Keppra) 500 mg Q12HR PO 12/25/16 21:00 12/29/16 09:00 Potassium Chloride/Sodium Chloride 1,000 ml @ 100 mls/hr Q10H IV 12/27/16 16:03 12/28/16 23:16 IV Flush (NS Flush) 2 ml BID IVF 12/27/16 21:00 12/28/16 20:31 Docusate Sodium (Colace) 100 mg BID PO 12/27/16 21:00 12/29/16 09:00 Pantoprazole Sodium (Protonix) 40 mg DAILY PO 12/28/16 09:00 12/29/16 09:00 Acetaminophen (Tylenol) 650 mg Q4H PRN PO TEMPERATURE > 101.5 F 12/27/16 16:15 12/29/16 05:27 Insulin Aspart (NovoLOG SUPPLEMENTAL SCALE) 1 ACHS SLIDING SCALE SQ 12/27/16 17:00 12/29/16 13:34 Insulin Detemir (Levemir Inj) 8 units Q12HR SQ 12/28/16 21:00 12/29/16 09:00 Enalaprilat (Vasotec Inj) 1.25 mg Q6H PRN IV FOR SBP > 160 12/29/16 05:30 12/29/16 05:38 Dexamethasone (Decadron) 3 mg Q6HR PO 12/29/16 12:00 12/29/16 13:40 Objective Remarks GENERAL: Elderly male upright in bed in [facility]. SKIN: Warm and dry. HEAD: Normocephalic. EYES: No injection or drainage. NECK: Supple, trachea midline. CARDIOVASCULAR: Regular rate and rhythm RESPIRATORY: Breath sounds equal bilaterally. No accessory muscle use. GASTROINTESTINAL: Abdomen soft, non-tender, nondistended. EXTREMITIES: No cyanosis NEUROLOGICAL: awake and alert. moving all extremities. Assessment/Plan Problem List: (1) Lesion of left parietal lobe of brain ICD Codes: G93.9 - Disorder of brain, unspecified Plan: 12/29: pathology results returned showing Glioblastoma Multiforme. I discussed the pathology results with the patient. Multiple extended family members present at the patient's request. I offered to obtain translation service through the computer but the patient refused requesting his daughter Natty translate instead. We discussed the incurable nature of GBM. We discussed the treatment which will be Temodar and radiation. We discussed follow up at the clinic in 1-2 weeks. I gave the patient's daughter contact information for new patient referrals and faxed the patient's face sheet to new patient referrals. Patient is clear for discharge from oncology perspective. -- 2.5 x 4.0 x 3.6-cm rim-enhancing mass in the left high parietal lobe consistent with primary brain tumor until proven otherwise. --If biopsy confirmed primary brain tumor, will be treated with radiation and chemotherapy depending on the grade of the primary tumor. --if the patient is found to have metastatic tumor to the brain, then we will order the CAT scan of the chest, abdomen and pelvis to evaluate for the primary site. Assessment 86y/o male with brain mass. h/o Diabetes mellitus. Hypertension. Hypercholesterolemia. History of stroke. Ayala Pierre Dec 29, 2016 15:31
[2016-12-29] MEDS: ACETAMINOPHEN/HYDROcodone 325 MG/10 MG TAB PO PRN (20:55)
[2016-12-30 00:30] VITALS: BP 190/80; PULSE 90; RESP 19; TEMP 97.8; O2SAT 96
[2016-12-30] MEDS: ACETAMINOPHEN/HYDROcodone 325 MG/10 MG TAB PO PRN (01:38)
[2016-12-30] MEDS: ACETAMINOPHEN 325 MG TAB PO PRN (03:00)
[2016-12-30] MEDS: CHLORHEXIDINE GLUCONATE 2 % 1 PACK (2 CLOTHS) TOP SCH (04:00)
[2016-12-30 05:45] VITALS: BP 166/81; PULSE 60; RESP 18; TEMP 98.2; O2SAT 95
[2016-12-30] MEDS: ENALAPRILAT 1.25 MG/ML VIAL IV PRN (05:45)
[2016-12-30] MEDS: DEXAMETHASONE 1.5 MG TAB PO SCH ×2 (05:45→13:14)
[2016-12-30 08:00] VITALS: BP 149/70; PULSE 60; RESP 16; TEMP 98; O2SAT 95
[2016-12-30] MEDS: INSULIN ASPART SUPPLEMENTAL SCALE SQ SCH (08:00)
[2016-12-30] MEDS ORDERED: PANTOPRAZOLE SOD 40 MG DELAYED RELEASE TAB PO SCH (09:00)
[2016-12-30] MEDS ORDERED: LISINOPRIL 20 MG TAB PO SCH (09:00)
[2016-12-30] MEDS: SODIUM CHLORIDE 0.9% FLUSH 5 ML FLUSH IVF SCH (09:00)
[2016-12-30] MEDS: INSULIN DETEMIR 100 UNITS/ML VIAL SQ SCH (09:00)
[2016-12-30] MEDS ORDERED: LISINOPRIL 10 MG TAB PO SCH (09:00)
[2016-12-30] MEDS: DOCUSATE SODIUM 100 MG CAP PO SCH (09:38)
[2016-12-30] MEDS: levETIRAcetam 500 MG TAB PO SCH (09:39)
[2016-12-30] MEDS ORDERED: DEXA1.5T PO (10:25)
[2016-12-30] MEDS ORDERED: LEVE500 PO (10:25)
[2016-12-30] MEDS ORDERED: AMLO5 PO (10:25)
[2016-12-30] MEDS ORDERED: LISI-515 PO (10:25)
[2016-12-30] MEDS ORDERED: PANT40TA3 PO (10:25)
[2016-12-30] MEDS ORDERED: LEVEMIR SQ (10:25)
--- NOTE | 2016-12-30 10:29 | HHI.DS ---
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 Patient reports that over the past 2 weeks, he would have episodes of numbness and tingling to his right arm his right lower extremity. Reports that symptoms would last about 2 hours and resolve on its own. He denies any headache or dizziness at this time, denies any vision changes. Denies any fall or trauma. CT of the head shows abnormal edema in the left frontoparietal region associated with a 2 cm hemorrhage most characteristic of a partially hemorrhagic infarct with localized mass effect and sulcal effacement. No significant midline shift. CBC/BMP: 12/28/16 0431 12/28/16 0431 Significant Findings Laboratory Tests Test 12/28/16 04:31 12/29/16 10:00 White Blood Count 14.9 TH/MM3 (4.0-11.0) Red Blood Count 3.83 MIL/MM3 (4.50-5.90) Hemoglobin 12.5 GM/DL (13.0-17.0) Hematocrit 36.0 % (39.0-51.0) Neutrophils (%) (Auto) 92.3 % (16.0-70.0) Lymphocytes (%) (Auto) 4.5 % (9.0-44.0) Neutrophils # (Auto) 13.8 TH/MM3 (1.8-7.7) Lymphocytes # (Auto) 0.7 TH/MM3 (1.0-4.8) Random Glucose 173 MG/DL (74-106) Calcium Level 8.1 MG/DL (8.5-10.1) Chloride Level 108 MEQ/L (98-107) Urine Glucose (UA) 1000 mg/dL (NEG) Urine Ketones TRACE mg/dL (NEG) Imaging Last Impressions Brain MRI 12/25/16 0000 Signed Impressions: Service Date/Time: Sunday, December 25, 2016 11:23 - CONCLUSION: 1. Rim-enhancing mass lesion in the high parietal left convexity with associated vasogenic edema and possible intralesional hemorrhage. Findings are concerning for possible GBM. 2. Despite the regional vasogenic edema, no significant midline shift. 3. Mild to moderate periventricular small vessel ischemic demyelination. 4. Probable 4.3 x 3.7 cm sebaceous type cyst in the scalp overlying the occipital bone, left para midline. Len Alberto MD Head CT 12/24/161819 Signed Impressions: Service Date/Time: Saturday, December 24, 2016 18:48 - CONCLUSION: 1. Abnormal edema in the left frontoparietal region associated with a 2 cm hemorrhage most characteristic of a partially hemorrhagic infarct with localized mass effect and sulcal effacement. No significant midline shift. Balbir Melvin MD Chest X-Ray 12/24/161819 Signed Impressions: Service Date/Time: Saturday, December 24, 2016 18:43 - CONCLUSION: 1. Stable mild cardiomegaly. Clear lungs. Lew Ribeiro Jr., MD PE at Discharge Central African speaking, seen with daughter, a x o x 3 anicteric lungs clear regular rhythm abdomen soft extremities no edema right sided weakness ambulated with a walker- well Pt update on day of discharge long discussion with daughter- and informed her of the pathology report d/w her ff up with Oncology to stage and decide on course of treatment Hospital Course 86 years old male Intracranial bleed- neuro stable - No surgical intervention indicated - Blood pressure control- change to po Lisinopril 40 mg po daily - home PT Brain mass- pathology - GBM - d/w daughter- OP ff up with Ms Pierre - continue Decadron with slow taper as op - d/w Ms José Menendez- neurosurgery - OP ff up with Karlee Kelly in 1 week Hypertension -- start on po Lisinorpil 40 mg daily - add Amlodipine 2.5 mg po daily Diabetes Mellitus type 2 - Metformin on hold- - Insulin sliding scale - Add levemir 8u bid- on Dexamethasone - daughter- - they check hisblood sugars at home Dyslipidemia - Atorvastatin DVT GI prophylaxis - Teds SCDs - No pharmacological DVT prophylaxis due to ICH - Pepcid CM< consult for home PT arrangement/ nursing/DMEDC today OP ff up Oncology and neurosurgery in 1 week Pt Condition on Discharge: Stable Discharge Disposition: Disch w/ Home Health Serv Discharge Time: <= 30 minutes Discharge Instructions DIET: Follow Instructions for: Heart Healthy Diet, Diabetic Diet Speech Therapy-Diet Recommends: Regular Activities you can perform: Weight Bearing as Cheryl Other Activity Instructions: PT Follow up Referrals: Neurosurgery with Claudia Menendez Oncology/Hematology - 1 Week @ [facility] with Tata Matos MD New Medications: Walker with Front Wheels (Walker with Front Wheels) 1 Mis Mis EA .ROUTE DIRECTED, #1 0 Refills Amlodipine (Norvasc) 5 Mg Tab 2.5 MG PO DAILY for HTN for 30 Days, #15 TAB Dexamethasone (Dexamethasone) 1.5 Mg Tab 3 MG PO Q6 for bRAIN MASS for 10 Days, TAB Insulin Detemir Inj (Levemir Inj) 1,000 unit/ 10 ML Vial 8 UNITS SQ Q12HR for dm for 30 Days, INJECTION Do not mix with any other Insulin. Levetiracetam (Keppra) 500 Mg Tab 500 MG PO Q12HR for brain MASS for 30 Days, TAB Lisinopril (Lisinopril) 20 Mg Tab 40 MG PO DAILY for htn for 30 Days, #60 TAB Pantoprazole (Pantoprazole) 40 Mg Tab 40 MG PO DAILY for gi PROPHYLAX for 30 Days, #30 TAB Continued Medications: Simvastatin (Simvastatin) Unknown Strength Tab Unknown Dose PO DAILY for Cholesterol Management, #30 TAB 0 Refills Discontinued Medications: Methylprednisolone Dosepak (Medrol Dosepak) 4 Mg Dspk 4 MG PO DIRECTED, #1 DSPK 0 Refills Per Pharmacist direction Naproxen (Naprosyn) 500 Mg Tab 500 MG PO BID for 7 Days, #14 TAB 0 Refills Magdy Nunes MD Dec 30, 2016 10:29
--- NOTE | 2016-12-30 10:29 | HHI.PR ---
Subjective Remarks seen with daughter-GBM diagnosis- no headaches, nause aor vomiting Objective Vitals Vital Signs Date Time Temp Pulse Resp B/P (MAP) Pulse Ox O2 Delivery O2 Flow Rate FiO2 12/30/16 08:00 98.0 60 16 149/70 (96) 95 12/30/16 05:45 98.2 60 18 166/81 (109) 95 12/30/16 00:30 97.8 90 19 190/80 (116) 96 12/29/16 21:30 97.2 75 19 190/89 (122) 93 12/29/16 21:00 75 12/29/16 17:42 98.3 86 18 168/81 (110) 97 12/29/16 13:33 97.3 84 20 142/67 (92) 96 I/O 12/29/16 12/29/16 12/29/16 12/30/16 12/30/16 12/30/16 07:00 15:00 23:00 07:00 15:00 23:00 Intake Total 650 ml 1220 ml 525 ml Output Total 550 ml 150 ml 1550 ml Balance 100 ml 1070 ml -1025 ml Intake Oral 650 ml 1220 ml 525 ml Output Urine Total 550 ml 150 ml 1550 ml # Voids 3 1 # Bowel Movements 0 0 0 Result Diagram: 12/28/16 0431 12/28/16 0431 Imaging Last Impressions Brain MRI 12/25/16 0000 Signed Impressions: Service Date/Time: Sunday, December 25, 2016 11:23 - CONCLUSION: 1. Rim-enhancing mass lesion in the high parietal left convexity with associated vasogenic edema and possible intralesional hemorrhage. Findings are concerning for possible GBM. 2. Despite the regional vasogenic edema, no significant midline shift. 3. Mild to moderate periventricular small vessel ischemic demyelination. 4. Probable 4.3 x 3.7 cm sebaceous type cyst in the scalp overlying the occipital bone, left para midline. Len Alberto MD Head CT 12/24/16 1820 Signed Impressions: Service Date/Time: Saturday, December 24, 2016 18:48 - CONCLUSION: 1. Abnormal edema in the left frontoparietal region associated with a 2 cm hemorrhage most characteristic of a partially hemorrhagic infarct with localized mass effect and sulcal effacement. No significant midline shift. Balbir Melvin MD Chest X-Ray 12/24/16 1820 Signed Impressions: Service Date/Time: Saturday, December 24, 2016 18:43 - CONCLUSION: 1. Stable mild cardiomegaly. Clear lungs. Lew Ribeiro Jr., MD Objective Remarks Persian speaking, seen with daughter, a x o x 3 anicteric lungs clear regular rhythm abdomen soft extremities no edema right sided weakness ambulated with a walker- well Procedures stereotactic biopsy A/P Assessment and Plan 86 years old male Intracranial bleed- neuro stable - No surgical intervention indicated - Blood pressure control- change to po Lisinopril 40 mg po daily - home PT Brain mass- pathology - GBM - d/w daughter- OP ff up with Ms Pierre - continue Decadron with slow taper as op - d/w Ms José Menendez- neurosurgery - OP ff up with Karlee Kelly in 1 week Hypertension -- start on po Lisinorpil 40 mg daily - add Amlodipine 2.5 mg po daily Diabetes Mellitus type 2 - Metformin on hold- - Insulin sliding scale - Add levemir 8u bid- on Dexamethasone - daughter- - they check hisblood sugars at home Dyslipidemia - Atorvastatin DVT GI prophylaxis - Teds SCDs - No pharmacological DVT prophylaxis due to ICH - Pepcid CM< consult for home PT arrangement/ nursing/DMEDC today OP ff up Oncology and neurosurgery in 1 week Magdy Nunes MD Dec 30, 2016 10:29
[2016-12-30] MEDS ORDERED: PILL SPLITTER OTHER PRN (10:30)
[2016-12-30] MEDS ORDERED: amLODIPine BESYLATE 5 MG TAB PO SCH (10:30)
[2016-12-30 12:00] VITALS: BP 177/79; PULSE 71; RESP 17; TEMP 97.5; O2SAT 95
[2016-12-30 12:30] VITALS: PULSE 56
== END 2016-12-30 13:49 | disposition home health service (06) | DRG 25 ==
LOC: NEPC 17:37 → NEDA 19:13 → N03A 22:05 → N05A 12-28 16:59
PROVIDERS: ADMIT Internal Medicine; ATTEND Internal Medicine
PROC: 00B70ZX Excision of Cerebral Hemisphere, Open Approach, Diagnostic (ICD-10-PCS; principal; 2016-12-27 13:00)
DX: C71.3 Malignant neoplasm of parietal lobe (principal); I61.1 Nontraumatic intracerebral hemorrhage in hemisphere, cortical; G93.6 Cerebral edema; E11.9 Type 2 diabetes mellitus without complications; E78.00 Pure hypercholesterolemia, unspecified; I10 Essential (primary) hypertension; Z86.73 Personal history of transient ischemic attack (TIA), and cerebral infarction without residual deficits; Z87.891 Personal history of nicotine dependence; Z79.84 Long term (current) use of oral hypoglycemic drugs
CPT/HCPCS: 70450; 70553; 71010; 80048; 80053; 81001; 82550; 82552; 82948; 83735; 84443; 84484; 85025; 85610; 85730; 86850; 86900; 86901; 87641; 88307; 88331; 93005; 95819; A9579; C9113; J0360; J0690; J1580; J1815; J1953; J3480; J8540

== ENCOUNTER 2017-02-20 19:05 | Inpatient (IN) | payer MEDICARE, OTHER ==
[~2017-02-20 19:05] MED LIST changes: +AMLO5 PO; +DEXA1.5T PO; +LEVE500 PO; +LEVEMIR SQ; +LISI-515 PO; -MEDR4PAK PO; -NAPR500 PO; +PANT40TA3 PO; +WALKER WHEELS/F1 MIS
[2017-02-20 19:07] VITALS: BP 175/81; PULSE 91; RESP 16; TEMP 99.1; O2SAT 96
[2017-02-20 20:08] LABS: AUTOMATED NEUTROPHIL # 4.7 TH/MM3 (1.8-7.7); BASOPHIL % 0.5 % (0.0-2.0); EOSINOPHIL # 0.2 TH/MM3 (0-0.4); EOSINOPHIL % 2.9 % (0.0-4.0); HEMATOCRIT 37.8 % (39.0-51.0); HEMO FLAGS DIFF FINAL; LYMPH % 19.3 % (9.0-44.0); LYMPHOCYTE # 1.3 TH/MM3 (1.0-4.8); MEAN CELL VOLUME 95.1 FL (80.0-100.0); MEAN CORPUSCULAR HEMOGLOBIN 32.2 PG (27.0-34.0); MEAN CORPUSCULAR HGB CONC 33.9 % (32.0-36.0); MONO % 9.1 % (0.0-8.0); NEUT % 68.2 % (16.0-70.0); PLATELET COUNT 167 TH/MM3 (150-450); RED BLOOD COUNT 3.97 MIL/MM3 (4.50-5.90); RED CELL DISTRIBUTION WIDTH 14.9 % (11.6-17.2); WHITE BLOOD COUNT 6.9 TH/MM3 (4.0-11.0)
[2017-02-20 20:26] LABS: APTT (PATIENT) 26.1 SEC (24.3-30.1); PROTHROMBIN TIME - PATIENT 10.4 SEC (9.8-11.6)
[2017-02-20 20:35] LABS: BICARBONATE 25.3 MEQ/L (21.0-32.0); POTASSIUM 4.4 MEQ/L (3.5-5.1)
--- NOTE | 2017-02-20 22:17 | PD ---
HPI Chief Complaint: Edema Time Seen by Provider: 20:21 Travel History International Travel<30 days: No Contact w/Intl Traveler<30days: No Traveled to known affect area: No History of Present Illness HPI This is an 86-year-old male with a history of glioblastoma brain tumor, hypertension, diabetes mellitus, who presents today with complaints of right lower extremity swelling and discomfort. The patient denies any chest pain, shortness of breath. The patient denies any history of previous swelling. There is no history of clots. There are no other complaints time my examination. PFSH Past Medical History Hx Anticoagulant Therapy: Yes (ASPIRIN) Cancer: Yes (BRAIN) Cardiovascular Problems: Yes (HTN) High Cholesterol: Yes Cerebrovascular Accident: Yes Diabetes: Yes Patient Takes Glucophage: Yes Diminished Hearing: No Hypertension: Yes Immunizations Current: Yes Influenza Vaccination: Yes Past Surgical History Surgical History: No Previous Surgery Social History Alcohol Use: No Tobacco Use: No Substance Use: No Allergies-Medications (Allergen,Severity, Reaction): Coded Allergies: No Known Allergies (Unverified Adverse Reaction, Unknown, 01/08/17) Reported Meds & Prescriptions Reported Meds & Active Scripts Active Dexamethasone 1.5 Mg Tab 3 Mg PO Q6 10 Days Levemir Inj (Insulin Detemir) 1,000 unit/ 10 ML Vial 8 Units SQ Q12HR 30 Days Do not mix with any other Insulin. Pantoprazole (Pantoprazole Sodium) 40 Mg Tab 40 Mg PO DAILY 30 Days Keppra (Levetiracetam) 500 Mg Tab 500 Mg PO Q12HR 30 Days Lisinopril 20 Mg Tab 40 Mg PO DAILY 30 Days Norvasc (Amlodipine Besylate) 5 Mg Tab 2.5 Mg PO DAILY 30 Days Walker with Front Wheels (Device) 1 Mis Mis Ea .ROUTE DIRECTED Reported Lisinopril Unknown Strength Tab Unknown Dose PO DAILY Simvastatin Unknown Strength Tab Unknown Dose PO DAILY Metformin (Metformin HCl) Unknown Strength Tab Unknown Dose PO BIDPC With meals Review of Systems Except as stated in HPI: all other systems reviewed are Neg General / Constitutional: No: Fever, Chills HENT: No: Headaches (no new), Neck Pain Cardiovascular: No: Chest Pain or Discomfort, Palpitations Respiratory: No: Cough, Shortness of Breath Gastrointestinal: No: Nausea, Vomiting Genitourinary: No: Dysuria Musculoskeletal: Positive: Edema (right lower extremity), No: Weakness, Pain Neurologic: No: Weakness (no new), Dizziness (known), Headache Physical Exam Narrative GENERAL: Developed well-nourished male in no acute rest her distress. SKIN: Focused skin assessment warm/dry. HEAD: Atraumatic. Normocephalic. EYES: Pupils equal and round. No scleral icterus. No injection or drainage. ENT: No nasal bleeding or discharge. Mucous membranes pink and moist. NECK: Trachea midline. No JVD. CARDIOVASCULAR: Regular rate and rhythm. No murmur appreciated. RESPIRATORY: No accessory muscle use. Clear to auscultation. Breath sounds equal bilaterally. GASTROINTESTINAL: Abdomen soft, non-tender, nondistended. Hepatic and splenic margins not palpable. MUSCULOSKELETAL: No obvious deformities. No clubbing. No cyanosis. Right lower shimmy has 1+ edema to his pretibial area. There is no calf tenderness. Compared to the left lower extremity this is significantly more enlarged. There are no ulcerations. There is good palpable dorsalis pedis pulses. Cap refill is less than 3 seconds. NEUROLOGICAL: Awake and alert. Patient has left sided weakness from his previous CVA. Data Data Last Documented VS Vital Signs Date Time Temp Pulse Resp B/P (MAP) Pulse Ox O2 Delivery O2 Flow Rate FiO2 02/20/17 19:07 99.1 91 16 175/81 (112) 96 Room Air Orders Orders Complete Blood Count With Diff (02/20/17 19:28) Basic Metabolic Panel (Bmp) (02/20/17 19:28) Coag Profile (02/20/17 19:28) B-Type Natriuretic Peptide (02/20/17 19:28) Us Leg Venous Doppler (02/20/17 20:29) Admit Order (Ed Use Only) (02/20/17 23:06) Labs Laboratory Tests Test 02/20/17 19:35 White Blood Count 6.9 TH/MM3 Red Blood Count 3.97 MIL/MM3 Hemoglobin 12.8 GM/DL Hematocrit 37.8 % Mean Corpuscular Volume 95.1 FL Mean Corpuscular Hemoglobin 32.2 PG Mean Corpuscular Hemoglobin Concent 33.9 % Red Cell Distribution Width 14.9 % Platelet Count 167 TH/MM3 Mean Platelet Volume 6.8 FL Neutrophils (%) (Auto) 68.2 % Lymphocytes (%) (Auto) 19.3 % Monocytes (%) (Auto) 9.1 % Eosinophils (%) (Auto) 2.9 % Basophils (%) (Auto) 0.5 % Neutrophils # (Auto) 4.7 TH/MM3 Lymphocytes # (Auto) 1.3 TH/MM3 Monocytes # (Auto) 0.6 TH/MM3 Eosinophils # (Auto) 0.2 TH/MM3 Basophils # (Auto) 0.0 TH/MM3 CBC Comment DIFF FINAL Differential Comment Prothrombin Time 10.4 SEC Prothromb Time International Ratio 1.0 RATIO Activated Partial Thromboplast Time 26.1 SEC Blood Urea Nitrogen 18 MG/DL Creatinine 0.96 MG/DL Random Glucose 229 MG/DL Calcium Level 8.6 MG/DL Sodium Level 140 MEQ/L Potassium Level 4.4 MEQ/L Chloride Level 106 MEQ/L Carbon Dioxide Level 25.3 MEQ/L Anion Gap 9 MEQ/L Estimat Glomerular Filtration Rate 75 ML/MIN B-Type Natriuretic Peptide 85 PG/ML MDM Medical Decision Making Medical Screen Exam Complete: Yes Emergency Medical Condition: Yes Differential Diagnosis Right lower extremity DVT versus dependent edema versus anasarca. Narrative Course 86-year-old male with a history of glioblastoma deformity, diabetes mellitus, hypertension, previous CVA involving left side, presents today with complaints of swelling to his right lower shimmy. The patient has no shortness of breath or chest pain. The patient does have a DVT in his right lower extremity. The patient will be admitted to the hospital. Concern here is that he has the glioblastoma of the right parietal lobe. Question is whether he can be fully anticoagulated or not. Case was discussed with Dr. Bee Beard who will admit the patient and initiate therapy. Diagnosis Primary Impression: Right leg DVT Additional Impressions: HTN (hypertension) Glioblastoma multiforme diabetes mellitus Admitting Information Admitting Physician Requests: Admit Aram Augustine MD Feb 20, 2017 22:17
--- NOTE | 2017-02-20 22:27 | RADRPT ---
EXAM DATE/TIME: 02/20/2017 21:45 [facility] COMPARISON: No previous studies available for comparison. INDICATIONS : Right leg swelling. MEDICAL HISTORY : Hypercholesterolemia. Hypertension. Cerebrovascular accident. Anticoagulant therapy. Diabetes. Ca ncer. SURGICAL HISTORY : None. ENCOUNTER: Initial ACUITY: 2 day PAIN SCORE: 1/10 LOCATION: Right leg. TECHNIQUE: Venous ultrasound of the leg was performed from the inguinal ligament to the proximal calf. Real-dawn e, color Doppler and spectral tracing, compression and augmentation techniques were used. FINDINGS: The deep system from the inguinal region to the popliteal is noncompressible. There is some minimal intraluminal flow, but no augmentation. Echogenic thrombus is seen in the superficial femoral vein a nd popliteal vein. CONCLUSION: The study is positive for deep venous thrombosis from inguinal region to popliteal. Lew Avendano MD on February 20, 2017 at 22:24 Board Certified Radiologist. This report was verified electronically.
[2017-02-21] VITALS (11 sets, daily range): BP systolic 138–174; BP diastolic 76–88; PULSE 75–88; RESP 16–18; TEMP 97.8–98.6; O2SAT 93–98
[2017-02-21] MEDS ORDERED: HEPARIN SODIUM - IV 10,000 UNITS/10 ML VIAL IV PUSH ONE (00:30)
[2017-02-21] MEDS ORDERED: HEPARIN-D5W 25,000 U/250 ML 250 ML IV PRN (00:30)
[2017-02-21] MEDS ORDERED: SODIUM CHLORIDE 0.9% FLUSH 10 ML FLUSH IV FLUSH PRN (00:30)
--- NOTE | 2017-02-21 00:39 | HHI.HP ---
[facility] Service [facility] Primary Care Physician Viral Lundy M.D. Admission Diagnosis right lower extremity dvt, history of brain tumor, diabetes mellitus Diagnoses: Travel History International Travel<30 Days: No Contact w/Intl Traveler <30 Da: No Traveled to Known Affected Are: No History of Present Illness 86-year-old male with a past medical history significant for glioblastoma currently undergoing radiation therapy, diabetes mellitus, GERD and hypertension presents to the emergency department for evaluation of a 2 day history of a swollen and painful right lower extremity. Ultrasound of the right lower extremity was significant for a DVT from inguinal region to popliteal vein. The patient sees Dr. Matos and Dr. Saldivar. He denies any systemic symptoms such as fever/chills, chest pain or nausea/vomiting. Review of Systems Denies fever or chills Denies blurry vision, otorrhea, rhinorrhea Denies sore throat and cough No chest pain, palpitations, shortness of breath No abdominal pain Denies constipation/diarrhea/nausea/vomiting Denies muscle pain/weakness No rashes Past Family Social History Past Medical History Glioblastoma Type 2 diabetes mellitus Hypertrophy tension Hyperlipidemia Past Surgical History Brain mass resection in 2017 Reported Medications Reported Meds & Active Scripts Active Dexamethasone 1.5 Mg Tab 3 Mg PO Q6 10 Days Levemir Inj (Insulin Detemir) 1,000 unit/ 10 ML Vial 8 Units SQ Q12HR 30 Days Do not mix with any other Insulin. Pantoprazole (Pantoprazole Sodium) 40 Mg Tab 40 Mg PO DAILY 30 Days Keppra (Levetiracetam) 500 Mg Tab 500 Mg PO Q12HR 30 Days Lisinopril 20 Mg Tab 40 Mg PO DAILY 30 Days Norvasc (Amlodipine Besylate) 5 Mg Tab 2.5 Mg PO DAILY 30 Days Walker with Front Wheels (Device) 1 Mis Mis Ea .ROUTE DIRECTED Reported Lisinopril Unknown Strength Tab Unknown Dose PO DAILY Simvastatin Unknown Strength Tab Unknown Dose PO DAILY Metformin (Metformin HCl) Unknown Strength Tab Unknown Dose PO BIDPC With meals Allergies: Coded Allergies: No Known Allergies (Unverified Allergy, Unknown, 02/21/17) Family History Denies family history of diabetes mellitus or coronary artery disease. Social History Denies alcohol, tobacco and illicit drugs Physical Exam Vital Signs Vital Signs Date Time Temp Pulse Resp B/P (MAP) Pulse Ox O2 Delivery O2 Flow Rate FiO2 02/20/17 19:07 99.1 91 16 175/81 (112) 96 Room Air Physical Exam GENERAL: male lying in bed SKIN: No rashes, ecchymoses or lesions. Cool and dry. HEAD: Atraumatic. Normocephalic. No temporal or scalp tenderness. EYES: Pupils equal round and reactive. Extraocular motions intact. No scleral icterus. No injection or drainage. ENT: Nose without bleeding, purulent drainage or septal hematoma. Throat without erythema, tonsillar hypertrophy or exudate. Uvula midline. Airway patent. NECK: Trachea midline. No JVD or lymphadenopathy. Supple, nontender, no meningeal signs. CARDIOVASCULAR: Regular rate and rhythm without murmurs, gallops, or rubs. RESPIRATORY: Clear to auscultation. Breath sounds equal bilaterally. No wheezes , rales, or rhonchi. GASTROINTESTINAL: Abdomen soft, non-tender, nondistended. No hepato-splenomegaly , or palpable masses. No guarding. MUSCULOSKELETAL: Right lower extremity with 1+ nonpitting edema to the knee. He has calf tenderness on palpation. The right lower extremity is swollen. 2+ dorsalis pedis pulse. NEUROLOGICAL: Awake and alert. Cranial nerves II through XII intact. Motor and sensory grossly within normal limits. Normal speech. Laboratory Laboratory Tests Test 02/20/17 19:35 White Blood Count 6.9 Red Blood Count 3.97 Hemoglobin 12.8 Hematocrit 37.8 Mean Corpuscular Volume 95.1 Mean Corpuscular Hemoglobin 32.2 Mean Corpuscular Hemoglobin Concent 33.9 Red Cell Distribution Width 14.9 Platelet Count 167 Mean Platelet Volume 6.8 Neutrophils (%) (Auto) 68.2 Lymphocytes (%) (Auto) 19.3 Monocytes (%) (Auto) 9.1 Eosinophils (%) (Auto) 2.9 Basophils (%) (Auto) 0.5 Neutrophils # (Auto) 4.7 Lymphocytes # (Auto) 1.3 Monocytes # (Auto) 0.6 Eosinophils # (Auto) 0.2 Basophils # (Auto) 0.0 CBC Comment DIFF FINAL Differential Comment Prothrombin Time 10.4 Prothromb Time International Ratio 1.0 Activated Partial Thromboplast Time 26.1 Blood Urea Nitrogen 18 Creatinine 0.96 Random Glucose 229 Calcium Level 8.6 Sodium Level 140 Potassium Level 4.4 Chloride Level 106 Carbon Dioxide Level 25.3 Anion Gap 9 Estimat Glomerular Filtration Rate 75 B-Type Natriuretic Peptide 85 Result Diagram: 02/20/17193402/20/171934 Caprini VTE Risk Assessment Caprini VTE Risk Assessment: Mod/High Risk (score >= 2) Caprini Risk Assessment Model Point Value = 1 Point Value = 2 Point Value = 3 Point Value = 5 Age 41-60 Minor surgery BMI > 25 kg/m2 Swollen legs Varicose veins or History of unexplained or recurrent spontaneous Oral contraceptives or hormone replacement Sepsis (< 1 month) Serious lung disease, including pneumonia (< 1 month) Abnormal pulmonary function Acute myocardial infarction Congestive heart failure (< 1 month) History of inflammatory bowel disease Medical patient at bed rest Age 61-74 Arthroscopic surgery Major open surgery (> 45 min) Laparoscopic surgery (> 45 min) Malignancy Confined to bed (> 72 hours) Immobilizing plaster cast Central venous access Age >= 75 History of VTE Family history of VTE Factor V Leiden Prothrombin [id number] Lupus anticoagulant Anticardiolipin antibodies Elevated serum homocysteine Heparin-induced thrombocytopenia Other congenital or acquired thrombophilia Stroke (< 1 month) Elective arthroplasty Hip, pelvis, or leg fracture Acute spinal cord injury (< 1 month) Prophylaxis Regimen Total Risk Factor Score Risk Level Prophylaxis Regimen 0-1 Low Early ambulation 2 Moderate Order ONE of the following: *Sequential Compression Device (SCD) *Heparin 5000 units SQ BID 3-4 Higher Order ONE of the following medications: *Heparin 5000 units SQ TID *Enoxaparin/Lovenox 40 mg SQ daily (WT < 150 kg, CrCl > 30 mL/min) *Enoxaparin/Lovenox 30 mg SQ daily (WT < 150 kg, CrCl > 10-29 mL/min) *Enoxaparin/Lovenox 30 mg SQ BID (WT < 150 kg, CrCl > 30 mL/min) AND/OR *Sequential Compression Device (SCD) 5 or more Highest Order ONE of the following medications: *Heparin 5000 units SQ TID (Preferred with Epidurals) *Enoxaparin/Lovenox 40 mg SQ daily (WT < 150 kg, CrCl > 30 mL/min) *Enoxaparin/Lovenox 30 mg SQ daily (WT < 150 kg, CrCl > 10-29 mL/min) *Enoxaparin/Lovenox 30 mg SQ BID (WT < 150 kg, CrCl > 30 mL/min) AND *Sequential Compression Device (SCD) Assessment and Plan Assessment and Plan Assessment/plan: 1. DVT Heparin bolus and drip Heme onc consulted, appreciate recommendations Monitor for signs of bleeding 2. Glioblastoma Continue Keppra Oncology consulted as above 3. Hypertension Continue lisinopril and amlodipine 4. Diabetes mellitus Restart Levemir once medication reconciliation completed SSI Monitor blood glucose 5. GERD Continue home Protonix FEN Regular diet Electrolytes: Monitor and replete when necessary Heparin ggt Case discussed with ER physician at length Physician Certification 2 Midnight Certification Type: Admission for Inpatient Services Order for Inpatient Services The services are ordered in accordance with Medicare regulations or non- Medicare payer requirements, as applicable. In the case of services not specified as inpatient-only, they are appropriately provided as inpatient services in accordance with the 2-midnight benchmark. Estimated LOS (days): 2 2 days is the estimated time the patient will need to remain in the hospital, assuming treatment plan goals are met and no additional complications. Post-Hospital Plan: Not yet determined Bee Beard MD Feb 21, 2017 00:39
[2017-02-21] MEDS ORDERED: PILL SPLITTER OTHER PRN (00:45)
[2017-02-21] MEDS ORDERED: DEXTROSE 50% IN WATER 50 ML VIAL(D50) IV PUSH PRN (00:45)
[2017-02-21] MEDS ORDERED: GLUCAGON 1 MG/ML VIAL OTHER PRN (00:45)
[2017-02-21 07:43] LABS: BASOPHIL % 0.5 % (0.0-2.0); EOSINOPHIL # 0.3 TH/MM3 (0-0.4); EOSINOPHIL % 3.3 % (0.0-4.0); HEMATOCRIT 38.5 % (39.0-51.0); HEMO FLAGS DIFF FINAL; LYMPH % 13.7 % (9.0-44.0); LYMPHOCYTE # 1.3 TH/MM3 (1.0-4.8); MEAN CELL VOLUME 95.1 FL (80.0-100.0); MEAN CORPUSCULAR HEMOGLOBIN 31.9 PG (27.0-34.0); MEAN CORPUSCULAR HGB CONC 33.6 % (32.0-36.0); MONO % 7.7 % (0.0-8.0); NEUT % 74.8 % (16.0-70.0); PLATELET COUNT 158 TH/MM3 (150-450); RED BLOOD COUNT 4.05 MIL/MM3 (4.50-5.90); RED CELL DISTRIBUTION WIDTH 14.8 % (11.6-17.2); WHITE BLOOD COUNT 9.3 TH/MM3 (4.0-11.0)
[2017-02-21] MEDS: PANTOPRAZOLE SOD 40 MG DELAYED RELEASE TAB PO SCH (07:56)
[2017-02-21] MEDS: levETIRAcetam 500 MG TAB PO SCH ×2 (07:56→20:19)
[2017-02-21] MEDS: LISINOPRIL 20 MG TAB PO SCH (07:56)
[2017-02-21] MEDS: SODIUM CHLORIDE 0.9% FLUSH 10 ML FLUSH IV FLUSH SCH ×2 (07:57→20:20)
[2017-02-21] MEDS: INSULIN ASPART SUPPLEMENTAL SCALE SQ SCH ×5 (07:57→20:19)
[2017-02-21 08:01] LABS: APTT (PATIENT) 102.7 SEC (24.3-30.1)
[2017-02-21 08:12] LABS: BICARBONATE 30.6 MEQ/L (21.0-32.0); POTASSIUM 3.8 MEQ/L (3.5-5.1)
[2017-02-21] MEDS ORDERED: amLODIPine BESYLATE 5 MG TAB PO SCH (09:00)
--- NOTE | 2017-02-21 10:19 | MB ---
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 PATIENT PROFILE The patient speaks [place]. Communication is extremely limited. I have reviewed the chart. I spoke with the patient's daughter by phone a few minutes ago. The patient is an 86-year-old male. He is retired. He lives in [facility]. 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 HISTORY OF PRESENT ILLNESS In reviewing the consultation dated December 24, 2016, from Dr. Desir who is a neurosurgeon, the patient had a history of right upper extremity weakness and bilateral lower extremity numbness over two weeks. The patient had episodes of numbness and tingling in the right arm and right lower extremity. He had a CT scan of the head which showed edema in left frontoparietal region associated with a 2-cm hemorrhage, most characteristic of a partially hemorrhagic infarct with localized mass effect. The patient had an MRI of the brain on 12/25/2016 showing a rim enhancing mass lesion in the high parietal left convexity with associated vasogenic edema and possible intralesional hemorrhage. These findings were of concern for glioblastoma multiforme. On 12/27/2016 the patient underwent a stereotactic biopsy of the left parietal enhancing mass. The pathology revealed a glioblastoma multiforme. The patient showed no evidence of methylated MGMT promoter. He is now receiving radiation therapy. He currently has a two-day history of swelling of the right lower extremity with tenderness in the calf. On February 20 he had an ultrasound of the right lower extremity which is positive for DVT from the inguinal area to the popliteal area. He has been placed on continuous intravenous heparin. I am now asked to see him regarding recommendations concerning anticoagulation. PAST SURGICAL HISTORY 1. Biopsy of left parietal mass 12/27/[address] Desir revealing glioblastoma multiforme. PAST MEDICAL HISTORY 1. Diabetes type 2. 2. Hypercholesterolemia. 3. Hypertension. 4. A new diagnosis of glioblastoma multiforme as described above. MEDICATIONS Prior to admission - 1. Amlodipine. 2. Decadron. 3. Insulin. 4. Keppra. 5. Lisinopril. 6. Metformin. 7. Protonix. 8. Simvastatin. ALLERGIES No known allergies. FAMILY HISTORY Noncontributory. REVIEW OF SYSTEMS Very difficult to obtain. He does not seem to be in any pain other than some tenderness of the calf and he is able to converse but I do not speak [place]. PHYSICAL EXAMINATION GENERAL: A gentleman who does not appear to be in any distress. VITAL SIGNS: Blood pressure 170/80, respiratory rate 18, pulse 80, afebrile. O2 sat 96%. HEENT: Head is normocephalic. Sclerae and conjunctivae are normal. Oropharynx is unremarkable. LYMPHATICS: There is no cervical, supraclavicular, axillary or inguinal adenopathy. HEART: Regular rhythm no murmur of gallop LUNGS: Clear. ABDOMEN: Without hepatosplenomegaly or masses. EXTREMITIES: +1 edema of the right leg with some mild calf tenderness. The leg is warm. The left leg is unremarkable. Neuro: no obvious focal weakness Skin: joselyn. ASSESSMENT The patient is an 86-year-old male who has a glioblastoma multiforme of the left parietal area. At presentation he was felt to have an element of hemorrhage. The tumor was not removed. The prognosis is poor as this gentleman was only able to have a biopsy. In addition he does not have methylation of MGMT promoter region which predicts for a poor prognosis and poor response to therapy. I would be reluctant to give him chronic anticoagulation given the presence of unresected glioblastoma multiforme, with associated hemorrhage at presentation. In addition the tumor is not likely to respond well to treatment given the methylation status. RECOMMENDATIONS 1. Discontinue heparin. 2. Placement of inferior vena cava filter. I contacted the patient's daughter, Debbie Rooney, by phone and talked to her about her Dad's situation. I told her that ideally anticoagulation would be the best treatment for the leg but it would put him at increased risk of intracerebral hemorrhage given his original presentation. I felt that under these circumstances, especially with a limited life expectancy and a previous history of cerebral hemorrhage, that the most appropriate treatment would be to discontinue the heparin and place an umbrella. I explained to her that placement of the umbrella would not help the venous thrombosis in the lower extremity and in fact could make it worse. She understands this and indicated that she would be willing to proceed with placement of an inferior vena cava umbrella. I have written orders to discontinue heparin. I have consulted radiology for placement of an IVC filter. He will continue his radiation therapy. It is not clear to me whether he received Temodar but the benefit would be small in a given his methylation status. Discussed with hospitalist. MD YESENIA Camacho/RAND /9:03 AM /10:00 AM MARYANNE
--- NOTE | 2017-02-21 15:48 | PD.RAD ---
Post Procedure Progress Note Pre Procedure Diagnosis: (1) Right leg DVT (2) Intracranial hemorrhage Post Procedure Diagnosis: (1) Intracranial hemorrhage (2) Right leg DVT Procedure Date: Feb 21, 2017 Supervising Radiologist: Janes Kauffman Proceduralist/Assist: Cory Haider, RT(R), Guillermina Kaye RT(R) Anesthesia: Local Plan of Activity Patient to Unit: ROPU Patient Condition: Good See PACS Report for procedural detail/treatment Janes Kauffman MD Feb 21, 2017 15:48
[2017-02-21] MEDS ORDERED: IOHEXOL 350 MG/ML 50 ML BTL (for RAD DIAG) OTHER ONE (16:01)
--- NOTE | 2017-02-21 16:37 | RADRPT ---
EXAM DATE/TIME: 02/21/2017 15:05 [facility] COMPARISON: CT SIMULATION, January 10, 2017, 14:13. INDICATIONS : Patient with right lower extremity DVT in need of IVC filter placement. MEDICAL HISTORY : HTN, Diabetes, HLD, Glioblastoma, CVA SURGICAL HISTORY : Left parietal mass biopsy, Brain mass resection ENCOUNTER: Initial ACUITY: 2 days PAIN SCORE: 0/10 FLUORO TIME: 2.1 minutes IMAGE SERIES: 3 ACCESS SITE: Right Internal jugular vein CONTRAST: 1.) 30 cc Omnipaque (iohexol) 350 DEVICE(S): 1.) Inferior vena cava B Serna Venatech filter PROCEDURE : 1. Ultrasound-guided venipuncture. 2. Inferior venacavogram. 3. Inferior vena cava filter placement. 4. Conscious sedation with continuous EKG and oximetry monitoring. The risks, benefits and alternatives to the procedure were explained and verbal and written consent w as obtained. The site was prepped in sterile fashion. Full sterile technique was used, including ca p, mask, sterile gloves and gown and a large sterile sheet. Hand hygiene and 2% chlorhexidine and/or betadine/alcohol prep was utilized per protocol for cutaneous antisepsis. Sterile gel and sterile p robe cover were utilized for ultrasound guidance. The skin and subcutaneous tissues were infiltrated with local anesthetic solution. With ultrasound and fluoroscopic guidance the targeted vein was punctured and a vascular sheath was p laced. Inferior venacavogram was performed to demonstrate level of renal veins. No caval thrombus was identified. The prescribed filter was deployed in the infrarenal inferior vena cava. Following deplo yment the filter was identified in good position. However, IVC venography identifies an inferior acce ssory left renal vein partially covered by the filter. A second more inferior filter was considered, however felt to be unnecessary given the patient's age and diagnosis. Conscious sedation was performed with the prescribed dosages and duration as above in the presence of an independent trained radiology nurse to assist in the monitoring of the patient. EKG and oximetry remained stable throughout the procedure. The patient tolerated the procedure well and there were n o complications. The patient was sent to post anesthesia recovery in stable condition. CONCLUSION: 1. Placement of Venatech IVC filter, as above. Janes Kauffmna MD on February 21, 2017 at 16:27 Board Certified Radiologist. This report was verified electronically.
[2017-02-21] MEDS ORDERED: cloNIDine HCL 0.1 MG TAB PO PRN (19:00)
--- NOTE | 2017-02-21 19:07 | HHI.PR ---
Addendum to Inpatient Note Addendum Reason: Additional Documentation Additional Information The patient denies chest pain or shots of breath. The patient is status post IVC filter placement. Patient is awake alert oriented 3, does not look in any distress. Lungs are clear to auscultation bilaterally and heart shows S1 and S2 present with regular rate and rhythm. There is noticeable increased size of the right lower extremity compared to the left, however there is no tenderness to palpation in the lower extremities or calfs. The patient has history of recently diagnosed breast, for which the patient had stereotactic biopsy. Pathology revealed glioblastoma multiforme. The patient is currently receiving radiation therapy. DVT of the right lower extremity, the patient initially started on heparin drip. I discussed the case with Dr. Walsh from medical oncology who given the history of glioblastoma with partially hemorrhagic infarct and localized mass effect he does not advice continuing anticoagulation at this time. He recommended IVC filter placement and this has been done. Patient has history of diabetes mellitus type 2. Blood sugars on admission were very elevated and uncontrolled. But seemed to have been improving. Likely because dexamethasone has not been continued. The patient states that he gets insulin at home to control his blood sugars with sometimes go very elevated. I will place on SSI with insulin NovoLog and I will restart dexamethasone. Patient also has hypertension which has been uncontrolled. Patient currently on lisinopril 40 mg by mouth daily and amlodipine 2.5 mg by mouth daily. I will increase amlodipine to 5 mg by mouth daily. Continue to monitor vital signs. Possible discharge the patient in a.m. if blood sugar stable and BP stable. Prosper Hodge MD Feb 21, 2017 19:07
[2017-02-21 21:40] LABS: BACTERIA, URINE OCC /hpf; BLOOD, URINE MOD (NEG); COMMENT (UR) CULTURE INDICATED; CULTURE IF INDICATED CULTURE INDICATED; GLUCOSE,URINE 300 mg/dL (NEG); KETONE, URINE NEG (NEG); NITRITE,URINE NEG (NEG); PH, URINE 7.5 (5.0-8.5); SQUAMOUS EPITHELIAL CELL URINE <1 /hpf (0-5); URINE COLOR LIGHT-YELLOW (YELLW/STRAW)
[2017-02-22] VITALS (15 sets, daily range): BP systolic 106–134; BP diastolic 58–81; PULSE 72–90; RESP 16–18; TEMP 97.7–98.3; O2SAT 94–98
[2017-02-22 06:22] LABS: AUTOMATED NEUTROPHIL # 5.5 TH/MM3 (1.8-7.7); BASOPHIL % 0.4 % (0.0-2.0); EOSINOPHIL # 0.2 TH/MM3 (0-0.4); EOSINOPHIL % 3.2 % (0.0-4.0); HEMATOCRIT 36.6 % (39.0-51.0); HEMO FLAGS DIFF FINAL; LYMPH % 16.6 % (9.0-44.0); LYMPHOCYTE # 1.3 TH/MM3 (1.0-4.8); MEAN CELL VOLUME 93.3 FL (80.0-100.0); MEAN CORPUSCULAR HEMOGLOBIN 32.3 PG (27.0-34.0); MEAN CORPUSCULAR HGB CONC 34.6 % (32.0-36.0); MONO % 9.2 % (0.0-8.0); NEUT % 70.6 % (16.0-70.0); PLATELET COUNT 158 TH/MM3 (150-450); RED BLOOD COUNT 3.92 MIL/MM3 (4.50-5.90); RED CELL DISTRIBUTION WIDTH 14.6 % (11.6-17.2); WHITE BLOOD COUNT 7.8 TH/MM3 (4.0-11.0)
[2017-02-22 06:54] LABS: BICARBONATE 25.5 MEQ/L (21.0-32.0); POTASSIUM 3.6 MEQ/L (3.5-5.1)
[2017-02-22] MEDS: INSULIN ASPART SUPPLEMENTAL SCALE SQ SCH ×2 (08:00→12:00)
[2017-02-22] MEDS ORDERED: amLODIPine BESYLATE 5 MG TAB PO SCH (09:00)
[2017-02-22] MEDS: levETIRAcetam 500 MG TAB PO SCH (09:01)
[2017-02-22] MEDS: LISINOPRIL 20 MG TAB PO SCH (09:01)
[2017-02-22] MEDS: PANTOPRAZOLE SOD 40 MG DELAYED RELEASE TAB PO SCH (09:01)
[2017-02-22] MEDS: SODIUM CHLORIDE 0.9% FLUSH 10 ML FLUSH IV FLUSH SCH (09:02)
[2017-02-22] MEDS ORDERED: AMLO5 PO (10:19)
--- NOTE | 2017-02-22 10:20 | HHI.DCPOC ---
Discharge Care Plan Diagnosis: (1) Glioblastoma multiforme (2) Right leg DVT Goals to Promote Your Health * To prevent worsening of your condition and complications * To maintain your health at the optimal level Directions to Meet Your Goals Take your medications as prescribed Follow your dietary instruction Follow activity as directed Keep your appointments as scheduled Take your immunizations and boosters as scheduled If your symptoms worsen call your PCP, if no PCP go to Urgent Care Center or Emergency Room Smoking is Dangerous to Your Health. Avoid second hand smoke Call the 24-hour hour crisis hotline for domestic abuse at Prosper Hodge MD Feb 22, 2017 10:20
--- NOTE | 2017-02-22 10:26 | HHI.DS ---
Discharge Summary Admission Date Feb 21, 2017 at 00:25 Discharge Date: Feb 22, 2017 Admitting Diagnosis right lower extremity dvt, history of brain tumor, diabetes mellitus Brief History - From Admission 86-year-old male with a past medical history significant for glioblastoma currently undergoing radiation therapy, diabetes mellitus, GERD and hypertension presents to the emergency department for evaluation of a 2 day history of a swollen and painful right lower extremity. Ultrasound of the right lower extremity was significant for a DVT from inguinal region to popliteal vein. The patient sees Dr. Matos and Dr. Saldivar. He denies any systemic symptoms such as fever/chills, chest pain or nausea/vomiting. CBC/BMP: 02/22/1721 02/22/17520 Significant Findings Laboratory Tests Test 02/20/17 19:35 02/21/17 07:11 02/21/17 21:19 02/22/17 05:21 Red Blood Count 3.97 MIL/MM3 (4.50-5.90) 4.05 MIL/MM3 (4.50-5.90) 3.92 MIL/MM3 (4.50-5.90) Hemoglobin 12.8 GM/DL (13.0-17.0) 12.9 GM/DL (13.0-17.0) 12.7 GM/DL (13.0-17.0) Hematocrit 37.8 % (39.0-51.0) 38.5 % (39.0-51.0) 36.6 % (39.0-51.0) Mean Platelet Volume 6.8 FL (7.0-11.0) 6.5 FL (7.0-11.0) 6.6 FL (7.0-11.0) Monocytes (%) (Auto) 9.1 % (0.0-8.0) 9.2 % (0.0-8.0) Random Glucose 229 MG/DL (74-106) 157 MG/DL (74-106) 148 MG/DL (74-106) Estimat Glomerular Filtration Rate 75 ML/MIN (>89) Neutrophils (%) (Auto) 74.8 % (16.0-70.0) 70.6 % (16.0-70.0) Activated Partial Thromboplast Time 102.7 SEC (24.3-30.1) Calcium Level 8.3 MG/DL (8.5-10.1) 8.2 MG/DL (8.5-10.1) Anion Gap 4 MEQ/L (5-15) Urine Turbidity HAZY (CLEAR) Urine Glucose (UA) 300 mg/dL (NEG) Urine Occult Blood MOD (NEG) Urine Leukocyte Esterase MOD (NEG) Urine RBC 4 /hpf (0-3) Urine WBC 37 /hpf (0-5) Urine Bacteria OCC /hpf (NONE) Chloride Level 109 MEQ/L (98-107) Imaging Last Impressions IVC Filter Placement X-Ray 02/21/17 0000 Signed Impressions: Service Date/Time: Tuesday, February 21, 2017 15:05 - CONCLUSION: 1. Placement of Venatech IVC filter, as above. Janes Kauffman MD Lower Extremity Ultrasound 02/20/172028 Signed Impressions: Service Date/Time: Monday, February 20, 2017 21:45 - CONCLUSION: The study is positive for deep venous thrombosis from inguinal region to popliteal. Lew Avendano MD Pt Condition on Discharge: Stable Discharge Disposition: Discharge Home Discharge Time: <= 30 minutes Discharge Instructions DIET: Follow Instructions for: Diabetic Diet Activities you can perform: Regular-No Restrictions Activities to Avoid: Prolonged Standing, Strenuous Activity Follow up Referrals: PCP Follow-up - 2 Weeks Prosper Hodge MD Feb 22, 2017 10:26
== END 2017-02-22 17:36 | disposition home or self-care (01) | DRG 253 ==
LOC: NEPC 19:05 → NEDA 23:12 → OBSVTOIN 02-21 00:25 → HCIN 02-21 02:10
PROVIDERS: ADMIT Hospitalist; ATTEND Hospitalist
PROC: 06H03DZ Insertion of Intraluminal Device into Inferior Vena Cava, Percutaneous Approach (ICD-10-PCS; principal; 2017-02-21)
PROC: B5191ZZ Fluoroscopy of Inferior Vena Cava using Low Osmolar Contrast (ICD-10-PCS; 2017-02-21)
DX: I82.431 Acute embolism and thrombosis of right popliteal vein (principal); C71.3 Malignant neoplasm of parietal lobe; I69.354 Hemiplegia and hemiparesis following cerebral infarction affecting left non-dominant side; E11.9 Type 2 diabetes mellitus without complications; I10 Essential (primary) hypertension; K21.9 Gastro-esophageal reflux disease without esophagitis; I82.811 Embolism and thrombosis of superficial veins of right lower extremity; E78.5 Hyperlipidemia, unspecified; Z79.01 Long term (current) use of anticoagulants; Z79.4 Long term (current) use of insulin
CPT/HCPCS: 37191; 80048; 81001; 82948; 83880; 85025; 85610; 85730; 87086; 93971; 99285; C1769; C1880; C1887; G0378; J1644; J1815; J3010; Q9967

== ENCOUNTER 2017-03-07 18:01 | Emergency (ER) | payer MEDICARE, OTHER ==
[~2017-03-07] VITALS: Ht 162.6 cm; Wt 72.7 kg
[~2017-03-07 18:01] MED LIST changes: -DEXA1.5T PO; -LISI10TA3 PO
[2017-03-07 18:02] VITALS: BP 153/76; PULSE 91; RESP 18; TEMP 99; O2SAT 95
[2017-03-07] MEDS ORDERED: MECLIZINE HCL 25 MG TAB PO ONE (19:00)
[2017-03-07 19:03] VITALS: BP 147/69; PULSE 82; RESP 18; O2SAT 97
--- NOTE | 2017-03-07 19:06 | PD ---
HPI Chief Complaint: General Weakness Time Seen by Provider: 18:43 Travel History International Travel<30 days: No Contact w/Intl Traveler<30days: No Traveled to known affect area: No History of Present Illness HPI 86-year-old male with a history of glioblastoma multiforme presents to emergency department complaining of increased weakness and fall that started today. States he fell out of his chair landing on his hands and knees onto carpet. Also says he has had episodes of dizziness that is exacerbated by movement of his head, lasts a few seconds, the goes away. Patient denies head trauma, headache, blurred vision. Denies chest pain or shortness of breath. Denies nausea, vomiting or diarrhea. Says he normally does have weakness of the extremities but today is different because he is more weak than normal. States he does receive chemotherapy and last treatment was approximately 3 weeks ago. Patient is due for another treatment March 19. Patient follows Dr. Walsh for hematology and Dr. Dyer for oncology. Granddaughter states that she suspects that he is weak because he is not drinking enough water. Patient does not drink a lot of water because he tends of urinating a lot and has trouble ambulating to the bathroom. Denies any unusual fever or chills. PFSH Past Medical History Hx Anticoagulant Therapy: Yes (ASPIRIN) Cancer: Yes (BRAIN) Cardiovascular Problems: Yes (HTN, hyperlipidemia) High Cholesterol: Yes Cerebrovascular Accident: Yes Diabetes: Yes Diminished Hearing: No Genitourinary: No Hypertension: Yes Immune Disorder: No Musculoskeletal: No Neurologic: Yes (Glioblastoma) Psychiatric: No Reproductive: No Respiratory: No Immunizations Current: Yes Social History Alcohol Use: No Tobacco Use: No Substance Use: No Allergies-Medications (Allergen,Severity, Reaction): Coded Allergies: No Known Allergies (Unverified Allergy, Unknown, 02/21/17) Reported Meds & Prescriptions Reported Meds & Active Scripts Active Meclizine (Meclizine HCl) 25 Mg Tab 25 Mg PO TID PRN 3 Days Norvasc (Amlodipine Besylate) 5 Mg Tab 5 Mg PO DAILY Levemir Inj (Insulin Detemir) 1,000 unit/ 10 ML Vial 8 Units SQ Q12HR 30 Days Do not mix with any other Insulin. Pantoprazole (Pantoprazole Sodium) 40 Mg Tab 40 Mg PO DAILY 30 Days Keppra (Levetiracetam) 500 Mg Tab 500 Mg PO Q12HR 30 Days Lisinopril 20 Mg Tab 40 Mg PO DAILY 30 Days Walker with Front Wheels (Device) 1 Mis Mis Ea .ROUTE DIRECTED Reported Simvastatin Unknown Strength Tab Unknown Dose PO DAILY Metformin (Metformin HCl) Unknown Strength Tab Unknown Dose PO BIDPC With meals Review of Systems Except as stated in HPI: all other systems reviewed are Neg Physical Exam Narrative GENERAL: Well-nourished in no apparent distress resting comfortably in bed SKIN: Focused skin assessment warm/dry. HEAD: Atraumatic. Normocephalic. EYES: Pupils equal and round. No scleral icterus. No injection or drainage. EOMI ENT: No nasal bleeding or discharge. Mucous membranes pink and moist. NECK: Trachea midline. No JVD. No lymphadenopathy CARDIOVASCULAR: Regular rate and rhythm. No murmur appreciated. RESPIRATORY: No accessory muscle use. Clear to auscultation. Breath sounds equal bilaterally. GASTROINTESTINAL: Abdomen soft, non-tender, nondistended. Hepatic and splenic margins not palpable. MUSCULOSKELETAL: No obvious deformities. No clubbing. No cyanosis. No edema. NEUROLOGICAL: Awake and alert. No obvious cranial nerve deficits. Motor grossly within normal limits. Normal speech. PSYCHIATRIC: Appropriate mood and affect; insight and judgment normal. Data Data Last Documented VS Vital Signs Date Time Temp Pulse Resp B/P (MAP) Pulse Ox O2 Delivery O2 Flow Rate FiO2 03/07/17 22:09 03/07/17 21:20 73 16 80 18 78 18 03/07/17 19:03 97 Room Air 03/07/17 18:02 99.0 Orders Orders Electrocardiogram (03/07/17 18:56) Complete Blood Count With Diff (03/07/17 18:56) Comprehensive Metabolic Panel (03/07/17 18:56) Magnesium (Mg) (03/07/17 18:56) Urinalysis - C+S If Indicated (03/07/17 18:56) Chest, Single Ap (03/07/17 18:56) Blood Glucose (03/07/17 18:56) Ecg Monitoring (03/07/17 18:56) Iv Access Insert/Monitor (03/07/17 18:56) Oximetry (03/07/17 18:56) Meclizine (Antivert) (03/07/17 19:00) Troponin I (03/07/17 18:56) Ckmb (Isoenzyme) Profile (03/07/17 18:56) Humerus (Min 2vws) (03/07/17 ) Sodium Chlorid 0.9% 500 Ml Inj (Ns 500 M (03/07/17 20:45) Orthostatic Vital Signs (03/07/17 20:41) Ed Discharge Order (03/07/17 21:41) Labs Laboratory Tests Test 03/07/17 19:05 White Blood Count 7.3 TH/MM3 Red Blood Count 3.88 MIL/MM3 Hemoglobin 12.5 GM/DL Hematocrit 36.5 % Mean Corpuscular Volume 94.1 FL Mean Corpuscular Hemoglobin 32.2 PG Mean Corpuscular Hemoglobin Concent 34.3 % Red Cell Distribution Width 14.9 % Platelet Count 283 TH/MM3 Mean Platelet Volume 6.2 FL Neutrophils (%) (Auto) 62.4 % Lymphocytes (%) (Auto) 25.3 % Monocytes (%) (Auto) 8.1 % Eosinophils (%) (Auto) 3.7 % Basophils (%) (Auto) 0.5 % Neutrophils # (Auto) 4.6 TH/MM3 Lymphocytes # (Auto) 1.8 TH/MM3 Monocytes # (Auto) 0.6 TH/MM3 Eosinophils # (Auto) 0.3 TH/MM3 Basophils # (Auto) 0.0 TH/MM3 CBC Comment DIFF FINAL Differential Comment Urine Color YELLOW Urine Turbidity CLEAR Urine pH 5.0 Urine Specific [place] 1.019 Urine Protein TRACE mg/dL Urine Glucose (UA) 70 mg/dL Urine Ketones NEG mg/dL Urine Occult Blood NEG Urine Nitrite NEG Urine Bilirubin NEG Urine Urobilinogen LESS THAN 2.0 MG/DL Urine Leukocyte Esterase NEG Urine RBC 1 /hpf Urine WBC 2 /hpf Urine Mucus FEW /lpf Microscopic Urinalysis Comment CULT NOT INDICATED Blood Urea Nitrogen 15 MG/DL Creatinine 0.95 MG/DL Random Glucose 190 MG/DL Total Protein 7.4 GM/DL Albumin 3.2 GM/DL Calcium Level 8.8 MG/DL Magnesium Level 1.4 MG/DL Alkaline Phosphatase 86 U/L Aspartate Amino Transf (AST/SGOT) 21 U/L Alanine Aminotransferase (ALT/SGPT) 28 U/L Total Bilirubin 0.3 MG/DL Sodium Level 137 MEQ/L Potassium Level 3.8 MEQ/L Chloride Level 101 MEQ/L Carbon Dioxide Level 26.3 MEQ/L Anion Gap 10 MEQ/L Estimat Glomerular Filtration Rate 76 ML/MIN Total Creatine Kinase 62 U/L Troponin I LESS THAN 0.02 NG/ML MDM Medical Decision Making Medical Screen Exam Complete: Yes Emergency Medical Condition: Yes Differential Diagnosis Vertigo, lightheadedness, dehydration, failure to thrive, glioblastoma multi- forming, chemotherapy-induced weakness, Narrative Course 86-year-old male with a history of glioblastoma multiforme presents to emergency department complaining of increased weakness and fall that started today. States he fell out of his chair landing on his hands and knees onto carpet. Also says he has had episodes of dizziness that is exacerbated by movement of his head, lasts a few seconds, the goes away. Patient denies head trauma, headache, blurred vision. Denies chest pain or shortness of breath. Denies nausea, vomiting or diarrhea. Says he normally does have weakness of the extremities but today is different because he is more weak than normal. States he does receive chemotherapy and last treatment was approximately 3 weeks ago. Patient is due for another treatment March 19. Patient follows Dr. Walsh for hematology and Dr. Dyer for oncology. Granddaughter states that she suspects that he is weak because he is not drinking enough water. Patient does not drink a lot of water because he tends of urinating a lot and has trouble ambulating to the bathroom. Denies any unusual fever or chills. Patient is not on blood thinners. Vital signs stable. Physical exam- mild tenderness palpation of the left upper arm without crepitus or deformities, x-ray ordered. No other areas of tenderness, contusions, deformities, or crepitus noted. Last Impressions Chest X-Ray 03/07/17 1856 Signed Impressions: Service Date/Time: Tuesday, March 07, 2017 19:32 - CONCLUSION: Mild right lung base atelectasis and/or infiltrate is seen. Talib Miguel MD Humerus X-Ray 03/07/17 0000 Signed Impressions: Service Date/Time: Tuesday, March 07, 2017 19:35 - CONCLUSION: Unremarkable study. Talib Miguel MD CBC & BMP Diagram 03/07/17 19:05 Total Protein 7.4, Albumin 3.2 L, Calcium Level 8.8, Magnesium Level 1.4 L, Alkaline Phosphatase 86, Aspartate Amino Transf (AST/SGOT) 21, Alanine Aminotransferase (ALT/SGPT) 28, Total Bilirubin 0.3 Cardiac enzymes negative. EKG- Sinus rhythm without ST elevation or depression. Urinalysis negative. Meclizine administered with some improvement in symptoms. I explained that the likely diagnosis and cause for her symptoms are secondary to glioblastoma multiformity. Patient is also in chemotherapy which is likely another cause of his symptoms. Patient missed to not having enough fluid intake because he does not want to get up to urinate as frequently. I believe commentation of the 3 of the likely cause of his symptoms. I strongly advise patient follow up with his candy spreader helper and oncologist within 1 week. Also advised patient to follow up with his primary care physician. Patient states understanding and will comply. Advised to return for worsening symptoms. Diagnosis Primary Impression: Glioblastoma multiforme Additional Impressions: Physical deconditioning Dehydration Vertigo Referrals: Oncologist Primary Care Physician Additional Instructions: Follow-up with your candy spreader helper or oncologist within 1 week. Continue to have a nutritious diet with plenty of fluid intake. Take medications as prescribed. If your symptoms persist or worsen, return to the emergency department. Scripts Meclizine (Meclizine) 25 Mg Tab 25 MG PO TID Y for VERTIGO for 3 Days, TAB 0 Refills Prov: Tanya Cortes 03/07/17 Disposition: 01 DISCHARGE HOME Condition: Stable Tanya Cortes Mar 07, 2017 19:06
[2017-03-07 19:40] LABS: AUTOMATED NEUTROPHIL # 4.6 TH/MM3 (1.8-7.7); BASOPHIL % 0.5 % (0.0-2.0); EOSINOPHIL # 0.3 TH/MM3 (0-0.4); EOSINOPHIL % 3.7 % (0.0-4.0); HEMATOCRIT 36.5 % (39.0-51.0); HEMOGLOBIN 12.5 GM/DL (13.0-17.0); LYMPH % 25.3 % (9.0-44.0); LYMPHOCYTE # 1.8 TH/MM3 (1.0-4.8); MEAN CELL VOLUME 94.1 FL (80.0-100.0); MEAN CORPUSCULAR HEMOGLOBIN 32.2 PG (27.0-34.0); MEAN CORPUSCULAR HGB CONC 34.3 % (32.0-36.0); MEAN PLATELET VOLUME 6.2 FL (7.0-11.0); MONO % 8.1 % (0.0-8.0); MONOCYTE # 0.6 TH/MM3 (0-0.9); NEUT % 62.4 % (16.0-70.0); PLATELET COUNT 283 TH/MM3 (150-450); RED BLOOD COUNT 3.88 MIL/MM3 (4.50-5.90); RED CELL DISTRIBUTION WIDTH 14.9 % (11.6-17.2); WHITE BLOOD COUNT 7.3 TH/MM3 (4.0-11.0)
[2017-03-07 19:49] LABS: BILIRUBIN, URINE NEG (NEG); BLOOD, URINE NEG (NEG); GLUCOSE,URINE 70 mg/dL (NEG); KETONE, URINE NEG (NEG); MUCUS URINE FEW /lpf (OCC); NITRITE,URINE NEG (NEG); URINE COLOR YELLOW (YELLW/STRAW); URINE LEUKOCYTE ESTERASE NEG (NEG)
--- NOTE | 2017-03-07 19:52 | RADRPT ---
EXAM DATE/TIME: 03/07/2017 19:35 [facility] COMPARISON: No previous studies available for comparison. INDICATIONS : Left humerus pain. MEDICAL HISTORY : None. SURGICAL HISTORY : None. ENCOUNTER: Initial ACUITY: 1 day PAIN SCORE: 10 LOCATION: Left humerus. FINDINGS: No definite fractures, or dislocations are identified. No definite lytic or sclerotic lesion is seen . CONCLUSION: Unremarkable study. Talib Miguel MD on March 07, 2017 at 19:50 Board Certified Radiologist. This report was verified electronically.
--- NOTE | 2017-03-07 19:52 | RADRPT ---
EXAM DATE/TIME: 03/07/2017 19:32 [facility] COMPARISON: CHEST SINGLE AP, December 24, 2016, 18:43. INDICATIONS : Syncopal episode. MEDICAL HISTORY : Hypercholesterolemia. Hypertension. Cerebrovascular accident. Anticoagulanttherapy. Diabetes. Cancer. SURGICAL HISTORY : None. ENCOUNTER: Initial ACUITY: 1 day PAIN SCORE: 0/10 LOCATION: Bilateral chest FINDINGS: Mild right lung base atelectasis and/or infiltrate is seen and a tiny right pleural effusion is diffi cult to exclude. Heart and mediastinum are unremarkable for technique. CONCLUSION: Mild right lung base atelectasis and/or infiltrate is seen. Talib Miguel MD on March 07, 2017 at 19:49 Board Certified Radiologist. This report was verified electronically.
[2017-03-07 20:20] LABS: ALBUMIN 3.2 GM/DL (3.4-5.0); ALT (GPT) 28 U/L (12-78); AST (GOT) 21 U/L (15-37); BICARBONATE 26.3 MEQ/L (21.0-32.0); BLOOD UREA NITROGEN 15 MG/DL (7-18); CALCIUM 8.8 MG/DL (8.5-10.1); CHLORIDE 101 MEQ/L (98-107); CREATININE 0.95 MG/DL (0.60-1.30); GLOMERULAR FILTRATION RATE 76 ML/MIN (>89); GLUCOSE,RANDOM 190 MG/DL (74-106); MAGNESIUM 1.4 MG/DL (1.5-2.5); SODIUM (NA) 137 MEQ/L (136-145)
[2017-03-07 20:24] LABS: ALKALINE PHOSPHATASE 86 U/L (45-117); TOTAL BILIRUBIN ADULT 0.3 MG/DL (0.2-1.0); TOTAL PROTEIN 7.4 GM/DL (6.4-8.2); TROPONIN I LESS THAN 0.02 NG/ML (0.02-0.05)
[2017-03-07] MEDS ORDERED: SODIUM CHLORID 0.9% 500 ML INJ 500 ML IV ONE (20:45)
[2017-03-07 21:20] VITALS: BP_SYST 139; BP_SYST 157; BP_DIAS 67; BP_DIAS 74; BP_DIAS 77; RESP 16; RESP 18
[2017-03-07] MEDS ORDERED: MECL-62 PO (21:36)
--- NOTE | 2017-03-09 23:37 | EKG ---
Date Performed: 03/07/2017 Time Performed: 19:11:39 PTAGE: 86 years EKG: Sinus rhythm MARKED LEFT AXIS DEVIATION NONSPECIFIC T-WAVE ABNORMALITY ABNORMAL ECG PREVIOUS TRACING : 03/07/2017 19.09 DOCTOR: Manjeet Nieves Interpretating Date/Time 03/09/2017 23:36:14
== END 2017-03-07 22:19 | disposition home or self-care (01) ==
LOC: NEPC 18:01
DX: C71.9 Malignant neoplasm of brain, unspecified (principal); E86.0 Dehydration; R42 Dizziness and giddiness; E11.9 Type 2 diabetes mellitus without complications; I10 Essential (primary) hypertension; E78.5 Hyperlipidemia, unspecified; R94.31 Abnormal electrocardiogram [ECG] [EKG]; Z86.73 Personal history of transient ischemic attack (TIA), and cerebral infarction without residual deficits
CPT/HCPCS: 71045; 73060; 80053; 81001; 82550; 83735; 84484; 85025; 93005; 99285; J7040

== ENCOUNTER 2017-03-14 16:54 | Observation (INO) | payer MEDICARE, OTHER ==
[~2017-03-14] VITALS: Ht 157.5 cm; Wt 72.5 kg
[2017-03-14 16:54] VITALS: BP 152/76; PULSE 81; RESP 18; TEMP 98.3; O2SAT 96
[~2017-03-14 16:54] MED LIST changes: +MECL-62 PO
[2017-03-14 20:17] LABS: AUTOMATED NEUTROPHIL # 3.9 TH/MM3 (1.8-7.7); BASOPHIL # 0.1 TH/MM3 (0-0.2); BASOPHIL % 0.8 % (0.0-2.0); EOSINOPHIL # 0.3 TH/MM3 (0-0.4); EOSINOPHIL % 3.9 % (0.0-4.0); HEMATOCRIT 34.3 % (39.0-51.0); HEMOGLOBIN 11.9 GM/DL (13.0-17.0); LYMPH % 30.9 % (9.0-44.0); LYMPHOCYTE # 2.2 TH/MM3 (1.0-4.8); MEAN CELL VOLUME 95.5 FL (80.0-100.0); MEAN CORPUSCULAR HEMOGLOBIN 33.1 PG (27.0-34.0); MEAN CORPUSCULAR HGB CONC 34.6 % (32.0-36.0); MEAN PLATELET VOLUME 6.9 FL (7.0-11.0); MONO % 9.4 % (0.0-8.0); MONOCYTE # 0.7 TH/MM3 (0-0.9); PLATELET COUNT 258 TH/MM3 (150-450); RED BLOOD COUNT 3.59 MIL/MM3 (4.50-5.90); RED CELL DISTRIBUTION WIDTH 15.1 % (11.6-17.2)
[2017-03-14 20:22] LABS: ALBUMIN 3.5 GM/DL (3.4-5.0); AST (GOT) 21 U/L (15-37); BICARBONATE 26.4 MEQ/L (21.0-32.0); BLOOD UREA NITROGEN 17 MG/DL (7-18); CALCIUM 8.6 MG/DL (8.5-10.1); CHLORIDE 108 MEQ/L (98-107); CREATININE 0.89 MG/DL (0.60-1.30); GLOMERULAR FILTRATION RATE 81 ML/MIN (>89); GLUCOSE,RANDOM 144 MG/DL (74-106); MAGNESIUM 1.7 MG/DL (1.5-2.5); SODIUM (NA) 140 MEQ/L (136-145)
[2017-03-14 20:23] LABS: ALT (GPT) 23 U/L (12-78)
[2017-03-14 20:26] LABS: ALKALINE PHOSPHATASE 81 U/L (45-117); TOTAL BILIRUBIN ADULT 0.5 MG/DL (0.2-1.0); TOTAL PROTEIN 7.5 GM/DL (6.4-8.2)
[2017-03-14 20:36] LABS: INTERNATIONAL NORMALIZED RATIO 1.1 RATIO; PROTHROMBIN TIME - PATIENT 10.7 SEC (9.8-11.6)
[2017-03-14 21:05] VITALS: BP 149/67; PULSE 72; RESP 20; O2SAT 98
--- NOTE | 2017-03-14 21:47 | PD ---
HPI Chief Complaint: Edema Time Seen by Provider: 20:55 Travel History International Travel<30 days: No Contact w/Intl Traveler<30days: No Traveled to known affect area: No History of Present Illness HPI 86-year-old male that presents to the ED for evaluation of right arm swelling as well as right leg swelling. Per patient she's had this for about 2 days now. Per family members and patient he fell about 5 days ago and did not hit his head. He was evaluated here in was discharged with instructions to follow up with oncologist. Patient states that he is supposed to restart chemotherapy next week. Per patient he is having difficulty speaking for the past 5 days which is new for him. Per family his been weak on the right arm which appears to be chronic but some of it has worsened the past 5 days. He denies any head injury. Denies taking any blood thinners. He does have an IVC filter. He is a history of diabetes and high blood pressure. He has a known history of glioblastoma. She follows with Dr. welsh at the end Dr. Saldivar. He denies any chest pain or shortness of breath. Per patient has difficulty speaking has been ongoing for 5 days. He denies any pain but states feeling numbness. 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 PFSH Past Medical History Hx Anticoagulant Therapy: Yes (ASPIRIN) Cancer: Yes (BRAIN) Cardiovascular Problems: Yes (HTN, hyperlipidemia) High Cholesterol: Yes Cerebrovascular Accident: Yes Diabetes: Yes Patient Takes Glucophage: Yes Diminished Hearing: No Genitourinary: No Hypertension: Yes Immune Disorder: No Musculoskeletal: No Neurologic: Yes (Glioblastoma) Psychiatric: No Reproductive: No Respiratory: No Immunizations Current: Yes Past Surgical History Other Surgery: Yes (ivc filter 2 weeks ago ) Social History Alcohol Use: No Tobacco Use: No Substance Use: No Allergies-Medications (Allergen,Severity, Reaction): Coded Allergies: No Known Allergies (Unverified Allergy, Unknown, 02/21/17) Reported Meds & Prescriptions Reported Meds & Active Scripts Active Meclizine (Meclizine HCl) 25 Mg Tab 25 Mg PO TID PRN 3 Days Norvasc (Amlodipine Besylate) 5 Mg Tab 5 Mg PO DAILY Levemir Inj (Insulin Detemir) 1,000 unit/ 10 ML Vial 8 Units SQ Q12HR 30 Days Do not mix with any other Insulin. Pantoprazole (Pantoprazole Sodium) 40 Mg Tab 40 Mg PO DAILY 30 Days Keppra (Levetiracetam) 500 Mg Tab 500 Mg PO Q12HR 30 Days Lisinopril 20 Mg Tab 40 Mg PO DAILY 30 Days Walker with Front Wheels (Device) 1 Mis Mis Ea .ROUTE DIRECTED Reported Simvastatin Unknown Strength Tab Unknown Dose PO DAILY Metformin (Metformin HCl) Unknown Strength Tab Unknown Dose PO BIDPC With meals Review of Systems Except as stated in HPI: all other systems reviewed are Neg Physical Exam Narrative GENERAL: SKIN: Warm and dry. HEAD: Atraumatic. Normocephalic. EYES: Pupils equal and round. No scleral icterus. No injection or drainage. ENT: No nasal bleeding or discharge. Mucous membranes pink and moist. Tongue is midline. No blood deviation. Patient does have mild paralysis of the right side of the face especially on the mouth. otherwise cranial nerves intact. NECK: Trachea midline. No JVD. CARDIOVASCULAR: Regular rate and rhythm. RESPIRATORY: No accessory muscle use. Clear to auscultation. Breath sounds equal bilaterally. GASTROINTESTINAL: Abdomen soft, non-tender, nondistended. Hepatic and splenic margins not palpable. MUSCULOSKELETAL: Extremities without clubbing, cyanosis, or edema. No obvious deformities. Patient appears to have right wrist drops but able to keep it at - 10 degrees of extension from flexed position by himself. He does appear to have 1+ pitting edema on the right hand as well as on the right lower foot. 2+ pulses bilaterally. Sensation appears to be intact. Patient does appear to have weakness on the right leg and right arm compared to the left side. No obvious lumbar, thoracic, cervical spine tenderness to palpation. NEUROLOGICAL: Awake and alert. No obvious cranial nerve deficits. Motor grossly within normal limits. Five out of 5 muscle strength in the arms and legs. Normal speech. PSYCHIATRIC: Appropriate mood and affect; insight and judgment normal. Data Data Last Documented VS Vital Signs Date Time Temp Pulse Resp B/P (MAP) Pulse Ox O2 Delivery O2 Flow Rate FiO2 03/14/17 21:06 98 Room Air 03/14/17 21:05 72 20 149/67 (94) 03/14/17 16:54 98.3 Orders Orders Complete Blood Count With Diff (03/14/17 17:34) Comprehensive Metabolic Panel (03/14/17 17:34) B-Type Natriuretic Peptide (03/14/17 17:34) Act Partial Throm Time (Ptt) (03/14/17 17:34) Prothrombin Time / Inr (Pt) (03/14/17 17:34) Magnesium (Mg) (03/14/17 17:34) Us Arm Venous Doppler (03/14/17 ) Ct Brain W/O Iv Contrast(Rout) (03/14/17 ) Mri Brain W&W/O Contrast (03/14/17 22:36) Dexamethasone Inj (Decadron Inj) (03/14/17 22:45) Labs Laboratory Tests Test 03/14/17 19:20 White Blood Count 7.0 TH/MM3 Red Blood Count 3.59 MIL/MM3 Hemoglobin 11.9 GM/DL Hematocrit 34.3 % Mean Corpuscular Volume 95.5 FL Mean Corpuscular Hemoglobin 33.1 PG Mean Corpuscular Hemoglobin Concent 34.6 % Red Cell Distribution Width 15.1 % Platelet Count 258 TH/MM3 Mean Platelet Volume 6.9 FL Neutrophils (%) (Auto) 55.0 % Lymphocytes (%) (Auto) 30.9 % Monocytes (%) (Auto) 9.4 % Eosinophils (%) (Auto) 3.9 % Basophils (%) (Auto) 0.8 % Neutrophils # (Auto) 3.9 TH/MM3 Lymphocytes # (Auto) 2.2 TH/MM3 Monocytes # (Auto) 0.7 TH/MM3 Eosinophils # (Auto) 0.3 TH/MM3 Basophils # (Auto) 0.1 TH/MM3 CBC Comment DIFF FINAL Differential Comment Prothrombin Time 10.7 SEC Prothromb Time International Ratio 1.1 RATIO Activated Partial Thromboplast Time 22.3 SEC Blood Urea Nitrogen 17 MG/DL Creatinine 0.89 MG/DL Random Glucose 144 MG/DL Total Protein 7.5 GM/DL Albumin 3.5 GM/DL Calcium Level 8.6 MG/DL Magnesium Level 1.7 MG/DL Alkaline Phosphatase 81 U/L Aspartate Amino Transf (AST/SGOT) 21 U/L Alanine Aminotransferase (ALT/SGPT) 23 U/L Total Bilirubin 0.5 MG/DL Sodium Level 140 MEQ/L Potassium Level 4.0 MEQ/L Chloride Level 108 MEQ/L Carbon Dioxide Level 26.4 MEQ/L Anion Gap 6 MEQ/L Estimat Glomerular Filtration Rate 81 ML/MIN B-Type Natriuretic Peptide 45 PG/ML [facility] Medical Decision Making Medical Screen Exam Complete: Yes Emergency Medical Condition: Yes Medical Record Reviewed: Yes Interpretation(s) CBC & BMP Diagram 03/14/17 19:20 Total Protein 7.5, Albumin 3.5, Calcium Level 8.6, Magnesium Level 1.7, Alkaline Phosphatase 81, Aspartate Amino Transf (AST/SGOT) 21, Alanine Aminotransferase (ALT/SGPT) 23, Total Bilirubin 0.5 Last Impressions Upper Extremity Ultrasound 03/14/17 0000 Signed Impressions: Service Date/Time: Tuesday, March 14, 2017 21:49 - CONCLUSION: Normal examination. Claudy Gutierrez MD Head CT 03/14/17 0000 Signed Impressions: Service Date/Time: Tuesday, March 14, 2017 21:36 - CONCLUSION: Vasogenic edema in the left frontal lobe with areas of sulcal effacement. No evidence of hemorrhage. There is a area of encephalomalacia in the left frontoparietal region measuring 2.3 x 3.2 cm across, possible treated tumor. Claudy Gutierrez MD Differential Diagnosis DVT versus neuropathy versus brain tumor versus brain bleed versus radiculopathy Narrative Course 86-year-old male that presents to the ED for evaluation of swelling of the right upper and lower extremity as well as trouble speaking. Patient was properly examined and was found to have signs and symptoms of allergic etiology but concerning for DVT and possible worsening brain mass versus bleed. Labs and imaging were ordered. He does appear to have new neurological deficits per family especially this speech for the past 5 days. On appears to be more chronic but appears to be worsening. He does have a known glioblastoma on the left part of the brain. Labs and imaging were ordered. Labs and imaging were positive for what appears to be edema. No definite concerned that patient is having no new neurological deficits. Case was discussed with neurologist Dr. Carpenter who recommends oncology evaluation as well as starting patient on steroids if no contraindication. Case was discussed with Dr. Singh who is on- call for Dr. Murcia and recommends the patient be admitted for MRI for further evaluation to see whether this is recurrence of the tumor or radiation related disease as this will benefit from steroids. My attending Dr. Fajardo evaluated the patient and agrees with plan. Family agrees with plan. Case will be discussed with Dr. Hernandez. Diagnosis Primary Impression: Glioblastoma multiforme Additional Impressions: Aphasia Neuropathy Admitting Information Admitting Physician Requests: Observation Alex Alexis Mar 14, 2017 21:47
--- NOTE | 2017-03-14 21:59 | RADRPT ---
EXAM DATE/TIME: 03/14/2017 21:36 [facility] COMPARISON: MRI BRAIN W & W/O CONTRAST, December 25, 2016, 11:23. CT BRAIN W/O CONTRAST, December 24, 2016, 18:48 . INDICATIONS : General weakness. RADIATION DOSE: 36.66 CTDIvol (mGy) MEDICAL HISTORY : Cerebrovascular disease. Hypertension. Diabetes. Glioblastoma. SURGICAL HISTORY : None. ENCOUNTER: Initial ACUITY: 1 day PAIN SCALE: 0/10 LOCATION: cranial TECHNIQUE: Multiple contiguous axial images were obtained of the head. Using automated exposure control and adj ustment of the mA and/or kV according to patient size, radiation dose was kept as low as reasonably a chievable to obtain optimal diagnostic quality images. DICOM format image data is available electro nically for review and comparison. FINDINGS: CEREBRUM: There is an area of encephalomalacia in the high left parietal region with some surrounding vasogenic edema. There is diffuse sulcal effacement on the left frontal region compared to the right. It is d ifficult to define a central mass. There is no evidence of acute hemorrhage. The hemorrhage seen in O ctober has resolved POSTERIOR FOSSA: The cerebellum and brainstem are intact. The 4th ventricle is midline. The cerebellopontine angle i s unremarkable. EXTRACRANIAL: The visualized portion of the orbits is intact. SKULL: The calvaria is intact. No evidence of skull fracture. CONCLUSION: Vasogenic edema in the left frontal lobe with areas of sulcal effacement. No evidence of hemorrhage. There is a area of encephalomalacia in the left frontoparietal region measuring 2.3 x 3.2 cm across, possible treated tumor. Claudy Gutierrez MD on March 14, 2017 at 21:54 Board Certified Radiologist. This report was verified electronically.
--- NOTE | 2017-03-14 22:15 | PD ---
Physical Exam Narrative Patient was seen by my vector control assistant and myself. Data Data Last Documented VS Vital Signs Date Time Temp Pulse Resp B/P (MAP) Pulse Ox O2 Delivery O2 Flow Rate FiO2 03/14/17 21:06 98 Room Air 03/14/17 21:05 72 20 149/67 (94) 03/14/17 16:54 98.3 Orders Orders Complete Blood Count With Diff (03/14/17 17:34) Comprehensive Metabolic Panel (03/14/17 17:34) B-Type Natriuretic Peptide (03/14/17 17:34) Act Partial Throm Time (Ptt) (03/14/17 17:34) Prothrombin Time / Inr (Pt) (03/14/17 17:34) Magnesium (Mg) (03/14/17 17:34) Us Arm Venous Doppler (03/14/17 ) Ct Brain W/O Iv Contrast(Rout) (03/14/17 ) Dexamethasone Inj (Decadron Inj) (03/14/17 22:45) Place In Observation (03/14/17 ) Vital Signs (Adult) Q4H (03/14/17 23:23) Neuro Checks Q4H (03/14/17 23:23) Activity Oob With Assistance (03/14/17 23:23) Client Delivery Manager / Telemetry .CONTINUOUS (03/14/17 23:23) Sodium Chloride 0.9% Flush (Ns Flush) (03/14/17 23:30) Sodium Chloride 0.9% Flush (Ns Flush) (03/15/17 09:00) Pt Request For Service (03/14/17 23:23) Case Management Consult (03/14/17 23:23) Naloxone Inj (Narcan Inj) (03/14/17 23:30) Admit Order (Ed Use Only) (03/14/17 23:23) Mri Brain W&W/O Contrast (03/15/17 22:36) Labs Laboratory Tests Test 03/14/17 19:20 White Blood Count 7.0 TH/MM3 Red Blood Count 3.59 MIL/MM3 Hemoglobin 11.9 GM/DL Hematocrit 34.3 % Mean Corpuscular Volume 95.5 FL Mean Corpuscular Hemoglobin 33.1 PG Mean Corpuscular Hemoglobin Concent 34.6 % Red Cell Distribution Width 15.1 % Platelet Count 258 TH/MM3 Mean Platelet Volume 6.9 FL Neutrophils (%) (Auto) 55.0 % Lymphocytes (%) (Auto) 30.9 % Monocytes (%) (Auto) 9.4 % Eosinophils (%) (Auto) 3.9 % Basophils (%) (Auto) 0.8 % Neutrophils # (Auto) 3.9 TH/MM3 Lymphocytes # (Auto) 2.2 TH/MM3 Monocytes # (Auto) 0.7 TH/MM3 Eosinophils # (Auto) 0.3 TH/MM3 Basophils # (Auto) 0.1 TH/MM3 CBC Comment DIFF FINAL Differential Comment Prothrombin Time 10.7 SEC Prothromb Time International Ratio 1.1 RATIO Activated Partial Thromboplast Time 22.3 SEC Blood Urea Nitrogen 17 MG/DL Creatinine 0.89 MG/DL Random Glucose 144 MG/DL Total Protein 7.5 GM/DL Albumin 3.5 GM/DL Calcium Level 8.6 MG/DL Magnesium Level 1.7 MG/DL Alkaline Phosphatase 81 U/L Aspartate Amino Transf (AST/SGOT) 21 U/L Alanine Aminotransferase (ALT/SGPT) 23 U/L Total Bilirubin 0.5 MG/DL Sodium Level 140 MEQ/L Potassium Level 4.0 MEQ/L Chloride Level 108 MEQ/L Carbon Dioxide Level 26.4 MEQ/L Anion Gap 6 MEQ/L Estimat Glomerular Filtration Rate 81 ML/MIN B-Type Natriuretic Peptide 45 PG/ML MDM Supervised Visit with BAHMAN: Yes Narrative Course Patient will be admitted for MRI and IV Decadron. Diagnosis Primary Impression: Glioblastoma multiforme Additional Impression: Extremity edema Admitting Information Admitting Physician Requests: Admit Wil Erickson MD Mar 14, 2017 22:15
--- NOTE | 2017-03-14 22:23 | RADRPT ---
EXAM DATE/TIME: 03/14/2017 21:49 [facility] COMPARISON: No previous studies available for comparison. INDICATIONS : Right arm swelling. MEDICAL HISTORY : Hypercholesterolemia. Deep venous thrombosis. Hypertension. Glioblastoma. Anticoagulant therapy. Diab etes. SURGICAL HISTORY : IVC Filter placement. ENCOUNTER: Initial ACUITY: 1 day PAIN SCORE: 0/10 LOCATION: Right arm. FINDINGS: There is spontaneous flow documented in the brachial, basilic, cephalic, axillary, and subclavian vei ns. The vessels are compressible and augmentation response is documented. No filling defects are se en. The flow is phasic with respiration. Direction of flow in the jugular vein is caudal. CONCLUSION: Normal examination. Claudy Gutierrez MD on March 14, 2017 at 22:20 Board Certified Radiologist. This report was verified electronically.
[2017-03-14] MEDS ORDERED: DEXAMETHASONE SOD PHOS 20 MG/5 ML VIAL IV PUSH ONE (22:45)
[2017-03-14] MEDS ORDERED: SODIUM CHLORIDE 0.9% FLUSH 10 ML FLUSH IV FLUSH PRN (23:30)
[2017-03-14] MEDS ORDERED: NALOXONE HCL 0.4 MG/ML AMP IV PUSH PRN (23:30)
[2017-03-15] VITALS (10 sets, daily range): BP systolic 119–169; BP diastolic 61–91; PULSE 75–99; RESP 17–20; TEMP 95.8–98.8; O2SAT 94–99
[2017-03-15] MEDS: DEXAMETHASONE SOD PHOS 4 MG/ML VIAL IV PUSH SCH ×4 (04:30→22:32)
[2017-03-15] MEDS ORDERED: GLUCAGON 1 MG/ML VIAL OTHER PRN (06:00)
[2017-03-15] MEDS ORDERED: DEXTROSE 50% IN WATER 50 ML VIAL(D50) IV PUSH PRN (06:00)
--- NOTE | 2017-03-15 07:55 | HHI.HP ---
HPI Service [facility] Primary Care Physician Viral Ludny M.D. Admission Diagnosis glioblastoma. Neurologic deficit Diagnoses: Chief Complaint: right sided weakness, speech difficulties Travel History International Travel<30 Days: No Contact w/Intl Traveler <30 Da: No Traveled to Known Affected Are: No History of Present Illness Written by Guillermina Carrizales, acting as scribe for Dr. Evans on 03/15/17 at 07: 46. 86-year-old male with history of glioblastoma undergoing chemo/radiation, diabetes, hypertension, hyperlipidemia, CVA with residual right sided weakness, DVT s/p IVC filter, presents with a 3 day history of right hand and leg swelling , and difficulty speaking. The patient is Andorran speaking therefore used translation service via [employer] over the phone, however patient still is not a great historian despite translation therefore history from the patient is limited. Family not at bedside currently. He states his right arm and leg is swollen with increasing weakness. He also states he hasn't been speaking very well. He feels like his voice is going away. He denies any worsening headache or numbness. Denies any fevers/chills, chest pain, or shortness of breath. He believes his last chemotherapy was approximately 10 days ago. He states he was given a 15day vacation from treatment for the holidays and he is supposed to restart chemo on Sunday 03/19. Upon review of EMR, the patient is known to Dr. Matos and Dr. Saldivar. He is on chemotherapy with Temodar and undergoing radiation treatment. Discussed with RN to notify physician when family arrives. Review of Systems ROS Limitations: Poor Historian Except as stated in HPI: all other systems reviewed are Neg Past Family Social History Past Medical History Glioblastoma Hypertension Hyperlipidemia Diabetes mellitus CVA DVT Past Surgical History IVC filter Brain tumor biopsy Reported Medications Meclizine (Meclizine HCl) 25 Mg Tab 25 Mg PO TID PRN 3 Days Norvasc (Amlodipine Besylate) 5 Mg Tab 5 Mg PO DAILY Levemir Inj (Insulin Detemir) 1,000 unit/ 10 ML Vial 8 Units SQ Q12HR 30 Days Do not mix with any other Insulin. Pantoprazole (Pantoprazole Sodium) 40 Mg Tab 40 Mg PO DAILY 30 Days Keppra (Levetiracetam) 500 Mg Tab 500 Mg PO Q12HR 30 Days Lisinopril 20 Mg Tab 40 Mg PO DAILY 30 Days Walker with Front Wheels (Device) 1 Mis Mis Ea .ROUTE DIRECTED Simvastatin Unknown Strength Tab Unknown Dose PO DAILY Metformin (Metformin HCl) Unknown Strength Tab Unknown Dose PO BIDPC With meals Allergies: Coded Allergies: No Known Allergies (Unverified Allergy, Unknown, 02/21/17) Active Ordered Medications Current Medications Medications (Trade) Dose Ordered Sig/Jimmy Route Start Time Stop Time Status Last Admin (NS Flush) 2 ml UNSCH PRN IV FLUSH 03/14/17 23:30 (NS Flush) 2 ml BID IV FLUSH 03/15/17 09:00 (Narcan Inj) 0.4 mg UNSCH PRN IV PUSH 03/14/17 23:30 (Decadron Inj) 4 mg Q6H IV PUSH 03/15/17 04:00 03/15/17 04:30 (Pepcid) 20 mg BID PO 03/15/17 09:00 (D50w (Vial) Inj) 50 ml UNSCH PRN IV PUSH 03/15/17 06:00 (Glucagon Inj) 1 mg UNSCH PRN OTHER 03/15/17 06:00 (NovoLOG SUPPLEMENTAL SCALE) 1 ACHS SLIDING SCALE SQ 03/15/17 08:00 Family History Denies any significant family medical history Social History Denies any tobacco, alcohol, or illicit drug use. Lives with his and family. Ambulates well at baseline per patient Physical Exam Vital Signs Vital Signs Date Time Temp Pulse Resp B/P (MAP) Pulse Ox O2 Delivery O2 Flow Rate FiO2 03/15/17 04:00 97.6 96 18 163/77 (105) 96 03/15/17 02:01 97.9 75 17 151/76 (101) 95 03/15/17 01:31 75 19 162/72 (102) 94 Room Air 03/14/17 21:06 98 Room Air 03/14/17 21:05 72 20 149/67 (94) 98 Room Air 03/14/17 16:54 98.3 81 18 152/76 (101) 96 Room Air Physical Exam GENERAL: Well-nourished, well-developed pleasant Andorran-speaking elderly male patient in [facility]. SKIN: Warm and dry. No rash. HEAD: Normocephalic. Atraumatic. EYES: Pupils equal and round. No scleral icterus. No injection or drainage. ENT: No nasal bleeding or discharge. Mucous membranes pink and moist. NECK: Supple. Trachea midline. CARDIOVASCULAR: Regular rate and rhythm. S1, S2 noted. No murmur appreciated. RESPIRATORY: No accessory muscle use. Clear to auscultation. Breath sounds equal bilaterally. GASTROINTESTINAL: Abdomen soft, non-tender, nondistended. Normoactive bowel sounds x4. MUSCULOSKELETAL: No obvious deformities. Right hand with 2+ edema. Right leg with 2+ pedal edema. Left upper and lower extremities nonedematous. NEUROLOGICAL: Awake and alert. No obvious cranial nerve deficits. 3/5 strength RUE. 4/5 strength RLE. 5/5 strength LUE/LLE. Normal speech. PSYCHIATRIC: Appropriate mood and affect; insight and judgment normal. Laboratory Laboratory Tests Test 03/14/17 19:20 White Blood Count 7.0 Red Blood Count 3.59 Hemoglobin 11.9 Hematocrit 34.3 Mean Corpuscular Volume 95.5 Mean Corpuscular Hemoglobin 33.1 Mean Corpuscular Hemoglobin Concent 34.6 Red Cell Distribution Width 15.1 Platelet Count 258 Mean Platelet Volume 6.9 Neutrophils (%) (Auto) 55.0 Lymphocytes (%) (Auto) 30.9 Monocytes (%) (Auto) 9.4 Eosinophils (%) (Auto) 3.9 Basophils (%) (Auto) 0.8 Neutrophils # (Auto) 3.9 Lymphocytes # (Auto) 2.2 Monocytes # (Auto) 0.7 Eosinophils # (Auto) 0.3 Basophils # (Auto) 0.1 CBC Comment DIFF FINAL Differential Comment Prothrombin Time 10.7 Prothromb Time International Ratio 1.1 Activated Partial Thromboplast Time 22.3 Blood Urea Nitrogen 17 Creatinine 0.89 Random Glucose 144 Total Protein 7.5 Albumin 3.5 Calcium Level 8.6 Magnesium Level 1.7 Alkaline Phosphatase 81 Aspartate Amino Transf (AST/SGOT) 21 Alanine Aminotransferase (ALT/SGPT) 23 Total Bilirubin 0.5 Sodium Level 140 Potassium Level 4.0 Chloride Level 108 Carbon Dioxide Level 26.4 Anion Gap 6 Estimat Glomerular Filtration Rate 81 B-Type Natriuretic Peptide 45 Result Diagram: 03/14/17191903/14/17 192 Imaging Last Impressions Upper Extremity Ultrasound 03/14/17 0000 Signed Impressions: Service Date/Time: Tuesday, March 14, 2017 21:49 - CONCLUSION: Normal examination. Claudy Gutierrez MD Head CT 03/14/17 0000 Signed Impressions: Service Date/Time: Tuesday, March 14, 2017 21:36 - CONCLUSION: Vasogenic edema in the left frontal lobe with areas of sulcal effacement. No evidence of hemorrhage. There is a area of encephalomalacia in the left frontoparietal region measuring 2.3 x 3.2 cm across, possible treated tumor. Claudy Gutierrez MD Caprinbelgica VTE Risk Assessment Caprini VTE Risk Assessment: Mod/High Risk (score >= 2) Caprini Risk Assessment Model Point Value = 1 Point Value = 2 Point Value = 3 Point Value = 5 Age 41-60 Minor surgery BMI > 25 kg/m2 Swollen legs Varicose veins or History of unexplained or recurrent spontaneous Oral contraceptives or hormone replacement Sepsis (< 1 month) Serious lung disease, including pneumonia (< 1 month) Abnormal pulmonary function Acute myocardial infarction Congestive heart failure (< 1 month) History of inflammatory bowel disease Medical patient at bed rest Age 61-74 Arthroscopic surgery Major open surgery (> 45 min) Laparoscopic surgery (> 45 min) Malignancy Confined to bed (> 72 hours) Immobilizing plaster cast Central venous access Age >= 75 History of VTE Family history of VTE Factor V Leiden Prothrombin [id number] Lupus anticoagulant Anticardiolipin antibodies Elevated serum homocysteine Heparin-induced thrombocytopenia Other congenital or acquired thrombophilia Stroke (< 1 month) Elective arthroplasty Hip, pelvis, or leg fracture Acute spinal cord injury (< 1 month) Prophylaxis Regimen Total Risk Factor Score Risk Level Prophylaxis Regimen 0-1 Low Early ambulation 2 Moderate Order ONE of the following: *Sequential Compression Device (SCD) *Heparin 5000 units SQ BID 3-4 Higher Order ONE of the following medications: *Heparin 5000 units SQ TID *Enoxaparin/Lovenox 40 mg SQ daily (WT < 150 kg, CrCl > 30 mL/min) *Enoxaparin/Lovenox 30 mg SQ daily (WT < 150 kg, CrCl > 10-29 mL/min) *Enoxaparin/Lovenox 30 mg SQ BID (WT < 150 kg, CrCl > 30 mL/min) AND/OR *Sequential Compression Device (SCD) 5 or more Highest Order ONE of the following medications: *Heparin 5000 units SQ TID (Preferred with Epidurals) *Enoxaparin/Lovenox 40 mg SQ daily (WT < 150 kg, CrCl > 30 mL/min) *Enoxaparin/Lovenox 30 mg SQ daily (WT < 150 kg, CrCl > 10-29 mL/min) *Enoxaparin/Lovenox 30 mg SQ BID (WT < 150 kg, CrCl > 30 mL/min) AND *Sequential Compression Device (SCD) Assessment and Plan Assessment and Plan 86-year-old Andorran-speaking male with history of glioblastoma undergoing chemo/ radiation, diabetes, hypertension, hyperlipidemia, CVA with residual right sided weakness, DVT s/p IVC filter, presents with a 3 day history of right hand and leg swelling, and difficulty speaking. RUE/RLE Edema/Weakness: suspect secondary to tumor and known RLE DVT. -RUE Doppler U/S 03/14/17 negative for DVT -RLE Doppler U/S done 02/20/17 positive for DVT from inguinal to popliteal region, patient is s/p IVC filter on 02/21 -Head CT 03/14/17 images reviewed, shows vasogenic edema in left frontal lobe with areas of sulcal effacement; no hemorrhage; area of encephalomalacia in left frontoparietal region measuring 2.3 x3.2cm, possible treated tumor. -Consult patient's oncologist Dr. Matos -Started on IV Decadron 4mg q6h for edema -Monitor neuro checks, monitor on telemetry -Consult PT -Check brain MRI Glioblastoma: undergoing chemo/radiation with Dr. Matos and Dr. Saldivar -consult patient's oncologist Hypertension/Hyperlipidemia: chronic, BP acceptable -Continue patient's lisinopril, norvasc, statin -Monitor BP, adjust antihypertensives as needed Diabetes Mellitus: chronic, expect blood glucose to be elevated while on steroids -Continue patient's Levemir 8u sq bid -Monitor Accu-checks and cover with SSI -Diabetic diet DVT Prophylaxis: teds/SCDs the above note was scribed by Ms. Guillermina Carrizales. I attest that I had a face- to-face encounter with the patient , personally performed the physical exam, medical decision making and reviewed the findings and plan with the patient. Discussed Condition With Patient, Ship Unloader, ED RN Guillermina Carrizales PA-C Mar 15, 2017 07:55 Laureen Evans MD Mar 15, 2017 10:31
[2017-03-15] MEDS: FAMOTIDINE 20 MG TAB PO SCH ×2 (08:48→22:32)
[2017-03-15] MEDS: levETIRAcetam 500 MG TAB PO SCH ×2 (08:53→22:32)
[2017-03-15] MEDS: PANTOPRAZOLE SOD 40 MG DELAYED RELEASE TAB PO SCH (08:53)
[2017-03-15] MEDS: amLODIPine BESYLATE 5 MG TAB PO SCH (08:53)
[2017-03-15] MEDS: SODIUM CHLORIDE 0.9% FLUSH 10 ML FLUSH IV FLUSH SCH ×2 (08:54→22:32)
[2017-03-15] MEDS: LISINOPRIL 20 MG TAB PO SCH (08:54)
[2017-03-15] MEDS: INSULIN DETEMIR 100 UNITS/ML VIAL SQ SCH ×2 (08:55→22:33)
[2017-03-15] MEDS: INSULIN ASPART SUPPLEMENTAL SCALE SQ SCH ×4 (09:11→22:33)
[2017-03-15] MEDS ORDERED: GADODIAMIDE PF 287 MG/ML 5 ML VIAL (for RAD MRI) IVCONTRAST ONE (12:01)
--- NOTE | 2017-03-15 12:23 | RADRPT ---
EXAM DATE/TIME: 03/15/2017 11:41 [facility] COMPARISON: No previous studies available for comparison. INDICATIONS : Mass. CONTRAST: 14 cc Omniscan (gadodiamide) IV MEDICAL HISTORY : Diabetes mellitus type 2. Hypertension. SURGICAL HISTORY : IVC filter, BRAIN BX ENCOUNTER: Subsequent ACUITY: 2 day PAIN SCORE: 0/10 LOCATION: cranial TECHNIQUE: Multiplanar, multisequence MRI of the brain was performed both prior to and following the administrat ion of paramagnetic contrast. FINDINGS: CEREBRUM: There is a peripherally enhancing cavity in the left parietal lobe measuring 2.6 x 4.4 cm across. The area of enhancement measures 3.6 cm in cephalocaudad height. There some heterogeneity involving the cystic center. There is a more solid areas of enhancement along the superior aspect of the cavity. WHITE MATTER: Significant vasogenic edema on the left. Surrounding sulcal effacement.. POSTERIOR FOSSA: The cerebellum and brainstem are intact. The 4th ventricle is midline. The cerebellopontine angle is unremarkable. The cerebellar tonsils are normal in position. DIFFUSION IMAGING: No focal areas of restricted diffusion are seen. No evidence of acute infarction. EXTRACRANIAL: The visualized portions of the orbits and paranasal sinuses are unremarkable. Large lipoma in the pos terior left neck occipital region POST-CONTRAST: Minimal peripheral enhancement of the cystic cavity.. CONCLUSION: Large cavity in left parietal lobe with some mostly very thin rim like enhancement. There is some mor e nodular enhancement along the anterior superior margin. Significant surrounding vasogenic edema. No other masses are seen. Claudy Gutierrez MD on March 15, 2017 at 12:18 Board Certified Radiologist. This report was verified electronically.
[2017-03-15] MEDS ORDERED: ATORVASTATIN 20 MG TAB PO SCH (21:00)
[2017-03-16] VITALS (10 sets, daily range): BP systolic 133–173; BP diastolic 61–78; PULSE 64–84; RESP 15–18; TEMP 95.6–97.8; O2SAT 95–98
[2017-03-16] MEDS: DEXAMETHASONE SOD PHOS 4 MG/ML VIAL IV PUSH SCH ×2 (04:59→09:08)
[2017-03-16] MEDS: FAMOTIDINE 20 MG TAB PO SCH (09:07)
[2017-03-16] MEDS: PANTOPRAZOLE SOD 40 MG DELAYED RELEASE TAB PO SCH (09:07)
[2017-03-16] MEDS: amLODIPine BESYLATE 5 MG TAB PO SCH (09:07)
[2017-03-16] MEDS: LISINOPRIL 20 MG TAB PO SCH (09:07)
[2017-03-16] MEDS: levETIRAcetam 500 MG TAB PO SCH (09:07)
[2017-03-16] MEDS: SODIUM CHLORIDE 0.9% FLUSH 10 ML FLUSH IV FLUSH SCH (09:08)
[2017-03-16] MEDS: INSULIN DETEMIR 100 UNITS/ML VIAL SQ SCH (09:16)
[2017-03-16] MEDS: INSULIN ASPART SUPPLEMENTAL SCALE SQ SCH ×2 (09:17→14:09)
--- NOTE | 2017-03-16 09:57 | MB ---
cc: ANIA MATOS M.D. Corrected Copy: 03/21/17 DATE OF CONSULTATION 03/15/2017 REASON FOR CONSULTATION Consult requested by hospitalist for followup of glioblastoma multiforme. HISTORY OF PRESENT ILLNESS This is an 86-year-old male. He does not speak Greenlandic. He was diagnosed with a brain tumor, glioblastoma multiforme in December of last year. Dr. Desir did the biopsy. The tumor was not resected due to the hemorrhage in the tumor. The patient was evaluated by the undersigned and Dr. Saldivar, radiation oncologist. We have recommended radiation and chemotherapy with Temodar. The patient was started on radiation therapy. I have given a prescription for the Temodar, however, due insurance reasons, he was unable to get the Temodar. The patient is a very poor historian. It appears that his radiation was kept on hold for the holidays. Although I have not discussed with Dr. Saldivar as yet the reason to hold the treatment. The patient came in to the emergency room complaining of weakness of the right side. He had a CT scan of the head which showed vasogenic edema in the left frontal lobe with areas of sulcal effacement. No evidence of hemorrhage air. There is an area of encephalomalacia in the left frontoparietal region measuring 2.3 x 3.2 cm cross. An MRI of the brain was ordered which showed a large cavity in the left parietal lobe with mostly some very thin ring-like enhancement. There is some more nodular enhancement along the anterior superior margin. Significant surrounding vasogenic edema noted. No other masses are seen. The patient is under observation. I have been asked to see him for further evaluation. The patient is still in the emergency room under observation. The patient was started on Decadron. The patient states that his weakness on the right side has improve now. He was able to lift his right arm and right leg up against gravity. He thinks that he is feeling better and wanted to go home tomorrow. No family member is present at this time. REVIEW OF SYSTEMS The rest of the review of systems is unable to be obtained due to the language barrier. PAST MEDICAL HISTORY 1. Diabetes mellitus 2. Hypercholesterolemia 3. Hypertension PAST SURGICAL HISTORY 1. Craniotomy with biopsy of the brain mass. ALLERGIES None MEDICATIONS 1. Amlodipine 2. Keppra 3. Lisinopril 4. Pantoprazole 5. Pravastatin FAMILY HISTORY Family history is not significant for malignancy. SOCIAL HISTORY The patient does not smoke cigarettes, does not drink alcohol. ADDENDUM PHYSICAL EXAMINATION: GENERAL: This is a well-developed, well-nourished male in no apparent distress. VITAL SIGNS: Temperature 96.1, heart rate is 81, blood pressure 125/61. HEAD, EYES, EARS, NOSE, THROAT: Pupils equal, round and reactive to light and accommodation. Extraocular muscles intact. Anicteric. No oral lesions are noted. NECK: The neck is supple. No lymphadenopathy noted. LUNGS: Clear. No wheezes, rales or rhonchi. HEART: Regular rate and rhythm. ABDOMEN: Abdomen soft and nontender. No hepatosplenomegaly. EXTREMITIES: No pedal edema. NEUROLOGIC: Awake, alert. SKIN: No significant lesions noted. ASSESSMENT: 1. Glioblastoma multiforme status post biopsy only followed by radiation therapy. The patient was unable to get the Temodar. 2. Significant vasogenic edema from the tumor most likely due to due to being off the Decadron. 3. Right-sided weakness, most likely due to significant cerebral vasogenic edema. PLAN: I have reviewed his available records and I have discussed with the patient regarding his clinical situation. He speaks only Romanian. There are no family members are present at this time. The patient states that he is feeling better. He wants to go home tomorrow. I will try to discuss this with Dr. Saldivar tomorrow to see whether he would need more radiation or not. Unfortunately his current his brain tumor is not curable. He has a terminal cancer. Given his advanced age of 86, I do not know what the patient's and the family's expectations are. Certainly, palliative care consult or hospice should be involved in his care to find out the goals of the treatment. I will consult Dr. Saldivar for evaluation of whether he is a candidate to resume the radiation or to give further radiation therapy. I will also find out from our oncology resource nurse regarding the status of the Temodar. Further recommendations based on his hospital stay. Thank you for asking my opinion. Raúl Matos MD /TERRELL /9:39 PM /9:02 AM
--- NOTE | 2017-03-16 11:14 | PD.ONC.PN ---
Subjective Subjective Remarks Afebrile overnight. Patient resting in bed with son at bedside. reports some improvement in right upper and lower extremity strength. Wants to know when he can go home. Objective Data Date Time Temp Pulse Resp B/P (MAP) Pulse Ox O2 Delivery O2 Flow Rate FiO2 03/16/17 08:17 95.6 66 15 151/78 (102) 96 03/16/17 05:10 65 03/16/17 05:00 97.5 73 17 148/68 (94) 95 03/16/17 02:27 97.5 82 16 152/72 (98) 96 03/16/17 01:04 84 03/15/17 23:30 83 03/15/17 21:18 97.7 90 18 133/70 (91) 94 03/15/17 15:51 96.1 81 20 125/61 (82) 95 03/15/17 14:44 89 03/15/17 13:20 95.8 89 20 122/70 (87) 98 03/15/17 11:30 97.5 99 20 119/64 (82) 95 Result Diagram: 03/14/17191903/14/171919 Imaging Studies Last 24 hours Impressions Brain MRI 03/15/176 Signed Impressions: Service Date/Time: March 11:41 - CONCLUSION: Large cavity in left parietal lobe with some mostly very thin rim like enhancement. There is some more nodular enhancement along the anterior superior margin. Significant surrounding vasogenic edema. No other masses are seen. Claudy Gutierrez MD Administered Medications Medications (Trade) Dose Ordered Sig/Jimmy Route PRN Reason Start Time Stop Time Status Last Admin Dose Admin Sodium Chloride (NS Flush) 2 ml UNSCH PRN IV FLUSH FLUSH AFTER USING IV ACCESS 03/14/17 23:30 03/16/17 04:59 Sodium Chloride (NS Flush) 2 ml BID IV FLUSH 03/15/17 09:00 03/16/17 09:08 Dexamethasone Sodium Phosphate (Decadron Inj) 4 mg Q6H IV PUSH 03/15/17 04:00 03/16/17 09:08 Famotidine (Pepcid) 20 mg BID PO 03/15/17 09:00 03/16/17 09:07 Insulin Aspart (NovoLOG SUPPLEMENTAL SCALE) 1 ACHS SLIDING SCALE SQ 03/15/17 08:00 03/16/17 09:17 Amlodipine Besylate (Norvasc) 5 mg DAILY PO 03/15/17 09:00 03/16/17 09:07 Insulin Detemir (Levemir Inj) 8 units Q12HR SQ 03/15/17 09:00 03/16/17 09:16 Levetriacetam (Keppra) 500 mg Q12HR PO 03/15/17 09:00 03/16/17 09:07 Lisinopril (Prinivil) 40 mg DAILY PO 03/15/17 09:00 03/16/17 09:07 Pantoprazole Sodium (Protonix) 40 mg DAILY PO 03/15/17 09:00 03/16/17 09:07 Atorvastatin Calcium (Lipitor) 20 mg HS PO 03/15/17 21:00 03/15/17 22:32 Objective Remarks GENERAL: Elderly male, sitting up in bed in nad. SKIN: Warm and dry. HEAD: Normocephalic. NECK: Supple, trachea midline. CARDIOVASCULAR: Regular rate and rhythm RESPIRATORY: anterior mora clear. GASTROINTESTINAL: Abdomen soft, non-tender, nondistended. EXTREMITIES: No cyanosis NEUROLOGICAL: awake and alert. right sided paresis. Assessment/Plan Problem List: (1) Glioblastoma multiforme ICD Codes: C71.9 - Malignant neoplasm of brain, unspecified Plan: 03/16: I had an extensive discussion with patient and son at bedside. we discussed the treatment to date including XRT and Temodar. We discussed that the patient has a terminal illness and that any treatment would be palliative but not curative. We discussed possibly giving further Temodar, we also discussed hospice. the meeting ended with the plan to consult hospice for informational purposes and also to arrange outpatient follow up with Dr. Matos in the clinic. Patient is cleared for discharge from oncology perspective. --was unable to complete Temodar for insurance reasons. --S/P 40Gy in 15 fractions--completed XRT on 02/07/18. not a candidate for further radiation Assessment 86y/o male with glioblastoma multiforme admitted with weakness of right side h/o Diabetes mellitus Hypercholesterolemia Hypertension Attending Statement The exam, history, and the medical decision-making described in the above note were completed with the assistance of the mid-level provider. I reviewed and agree with the findings presented. I attest that I had a [id number] encounter with the patient on the same day, and personally performed and documented my assessment and findings in the medical record. pt seen in presence of , son and daughter ( Natty) right sided weakness has improved with decadron. pt wants to go home. pt is unable to walk due to weakness right leg extensive discussion with pt and family. They met with hospice. Pt decline hospice at this time. Ok to d/c home. Fu office next week. Ayala Pierre Mar 16, 2017 11:14 Tata Matos MD Mar 16, 2017 18:03
--- NOTE | 2017-03-16 11:41 | HHI.PR ---
Subjective Remarks in no acute distress. right-sided weakness and numbness has improved. no new complaints. son at the bedside. Objective Vitals Vital Signs Date Time Temp Pulse Resp B/P (MAP) Pulse Ox O2 Delivery O2 Flow Rate FiO2 03/16/17 08:17 95.6 66 15 151/78 (102) 96 03/16/17 05:10 65 03/16/17 05:00 97.5 73 17 148/68 (94) 95 03/16/17 02:27 97.5 82 16 152/72 (98) 96 03/16/17 01:04 84 03/15/17 23:30 83 03/15/17 21:18 97.7 90 18 133/70 (91) 94 03/15/17 15:51 96.1 81 20 125/61 (82) 95 03/15/17 14:44 89 03/15/17 13:20 95.8 89 20 122/70 (87) 98 I/O 03/15/17 03/15/17 03/15/17 03/16/17 03/16/17 03/16/17 07:00 15:00 23:00 07:00 15:00 23:00 Intake Total 200 ml 500 ml Output Total 600 ml 800 ml Balance -400 ml -300 ml Intake Oral 200 ml 500 ml Output Urine Total 600 ml 800 ml Result Diagram: 03/14/17191903/14/171919 Imaging Last Impressions Brain MRI 03/15/176 Signed Impressions: Service Date/Time: March 11:41 - CONCLUSION: Large cavity in left parietal lobe with some mostly very thin rim like enhancement. There is some more nodular enhancement along the anterior superior margin. Significant surrounding vasogenic edema. No other masses are seen. Claudy Gutierrez MD Upper Extremity Ultrasound 03/14/17 0000 Signed Impressions: Service Date/Time: Tuesday, March 14, 2017 21:49 - CONCLUSION: Normal examination. Claudy Gutierrez MD Head CT 03/14/17 0000 Signed Impressions: Service Date/Time: Tuesday, March 14, 2017 21:36 - CONCLUSION: Vasogenic edema in the left frontal lobe with areas of sulcal effacement. No evidence of hemorrhage. There is a area of encephalomalacia in the left frontoparietal region measuring 2.3 x 3.2 cm across, possible treated tumor. Claudy Gutierrez MD Objective Remarks GENERAL: This is a well-nourished, well-developed patient, in no apparent distress. CARDIOVASCULAR: Regular rate and regular rhythm without murmurs, gallops, or rubs. RESPIRATORY: Clear to auscultation. Breath sounds equal bilaterally. No wheezes , rales, or rhonchi. GASTROINTESTINAL: Abdomen soft, non-tender, nondistended. Normal, active bowel sounds MUSCULOSKELETAL: Extremities without clubbing, cyanosis, or edema. NEURO: Alert & Oriented x4 to person, place, time, situation. Moves all ext x4 Medications and IVs Inpatient Medications Amlodipine Besylate (Norvasc) 5 mg DAILY PO Last administered on 03/16/17 09: 07; Start 03/15/17 at 09:00 Atorvastatin Calcium (Lipitor) 20 mg HS PO Last administered on 03/15/17at 22:32 ; Start 03/15/17 at 21:00 Dexamethasone Sodium Phosphate (Decadron Inj) 4 mg Q6H IV PUSH Last administered on 03/16/17 09:08; Start 03/15/17 at 04:00 Dextrose (D50w (Vial) Inj) 50 ml UNSCH PRN IV PUSH HYPOGLYCEMIA-SEE COMMENTS; Start 03/15/17 at 06:00 Famotidine (Pepcid) 20 mg BID PO Last administered on 03/16/17 09:07; Start at 09:00 Glucagon (Glucagon Inj) 1 mg UNSCH PRN OTHER HYPOGLYCEMIA-SEE COMMENTS; Start 03/15/17 at 06:00 Insulin Aspart (NovoLOG SUPPLEMENTAL SCALE) 1 ACHS SLIDING SCALE SQ Last administered on 03/16/17 09:17; Start 03/15/17 at 08:00 Insulin Detemir (Levemir Inj) 8 units Q12HR SQ Last administered on 03/16/17 09:16; Start 03/15/17 at 09:00 Levetriacetam (Keppra) 500 mg Q12HR PO Last administered on 03/16/17 09:07; Start 03/15/17 at 09:00 Lisinopril (Prinivil) 40 mg DAILY PO Last administered on 03/16/17 09:07; Start 03/15/17 at 09:00 Naloxone HCl (Narcan Inj) 0.4 mg UNSCH PRN IV PUSH SEE LABEL COMMENTS; Start at 23:30 Pantoprazole Sodium (Protonix) 40 mg DAILY PO Last administered on 03/16/17at 09 :07; Start 03/15/17 at 09:00 Sodium Chloride (NS Flush) 2 ml BID IV FLUSH Last administered on 03/16/17at 09: 08; Start 03/15/17 at 09:00 A/P Assessment and Plan A/P RUE/RLE Edema/Weakness: suspect secondary to tumor and known RLE DVT. -RUE Doppler U/S 03/14/17 negative for DVT -RLE Doppler U/S done 02/20/17 positive for DVT from inguinal to popliteal region, patient is s/p IVC filter on 02/21 -Head CT 03/14/17 images reviewed, shows vasogenic edema in left frontal lobe with areas of sulcal effacement; no hemorrhage; area of encephalomalacia in left frontoparietal region measuring 2.3 x3.2cm, possible treated tumor. -Consult patient's oncologist Dr. Matos; radiation oncology consulted. -Started on IV Decadron 4mg q6h for edema -Monitor neuro checks, monitor on telemetry -Consult PT Glioblastoma: undergoing chemo/radiation with Dr. Matos and Dr. Saldivar -consulted patient's oncologist Hypertension/Hyperlipidemia: chronic, BP acceptable -Continue patient's lisinopril, norvasc, statin -Monitor BP, adjust antihypertensives as needed Diabetes Mellitus: chronic, expect blood glucose to be elevated while on steroids -Continue patient's Levemir 8u sq bid -Monitor Accu-checks and cover with SSI -Diabetic diet DVT Prophylaxis: teds/SCDs Discharge Planning awaiting oncology/ radiation oncology f/u and recommendations. Laureen Evans MD Mar 16, 2017 11:41
[2017-03-16] MEDS ORDERED: DEXAMETHASONE 4 MG TAB PO SCH (12:00)
[2017-03-16] MEDS ORDERED: PILL SPLITTER OTHER PRN (15:45)
[2017-03-16] MEDS ORDERED: DEXA4TAB PO (16:06)
--- NOTE | 2017-03-16 16:06 | HHI.DCPOC ---
Discharge Care Plan Diagnosis: (1) Glioblastoma multiforme (2) Extremity edema (3) Aphasia Goals to Promote Your Health * To prevent worsening of your condition and complications * To maintain your health at the optimal level Directions to Meet Your Goals Take your medications as prescribed Follow your dietary instruction Follow activity as directed Keep your appointments as scheduled Take your immunizations and boosters as scheduled If your symptoms worsen call your PCP, if no PCP go to Urgent Care Center or Emergency Room Smoking is Dangerous to Your Health. Avoid second hand smoke Call the 24-hour hour crisis hotline for domestic abuse at Guillermina Carrizales PA-C Mar 16, 2017 16:06
--- NOTE | 2017-03-16 18:27 | MB ---
cc: ANIA VELEZ M.D. DATE OF CONSULTATION: 03/16/2017. ADDENDUM NOTE: I indicated my consultation note last night and half of the dictation has been transcribed but the rest of the dictation was not audible and has not been transcribed; therefore I have been asked to transcribe the rest of my consultation note. PHYSICAL EXAMINATION: GENERAL: This is a well-developed, well-nourished male in no apparent distress. VITAL SIGNS: Temperature 96.1, heart rate is 81, blood pressure 125/61. HEAD, EYES, EARS, NOSE, THROAT: Pupils equal, round and reactive to light and accommodation. Extraocular muscles intact. Anicteric. No oral lesions are noted. NECK: The neck is supple. No lymphadenopathy noted. LUNGS: Clear. No wheezes, rales or rhonchi. HEART: Regular rate and rhythm. ABDOMEN: Abdomen soft and nontender. No hepatosplenomegaly. EXTREMITIES: No pedal edema. NEUROLOGIC: Awake, alert. SKIN: No significant lesions noted. ASSESSMENT: 1. Glioblastoma multiforme status post biopsy only followed by radiation therapy. The patient was unable to get the Temodar. 2. Significant vasogenic edema from the tumor most likely due to due to being off the Decadron. 3. Right-sided weakness, most likely due to significant cerebral vasogenic edema. PLAN: I have reviewed his available records and I have discussed with the patient regarding his clinical situation. He speaks only English. There are no family members are present at this time. The patient states that he is feeling better. He wants to go home tomorrow. I will try to discuss this with Dr. Saldivar tomorrow to see whether he would need more radiation or not. Unfortunately his current his brain tumor is not curable. He has a terminal cancer. Given his advanced age of 86, I do not know what the patient's and the family's expectations are. Certainly, palliative care consult or hospice should be involved in his care to find out the goals of the treatment. I will consult Dr. Saldivar for evaluation of whether he is a candidate to resume the radiation or to give further radiation therapy. I will also find out from our oncology resource nurse regarding the status of the Temodar. Further recommendations based on his hospital stay. Thank you for asking my opinion. MD JONA Barahona/LUIS MANUEL /6:04 PM /6:15 PM
[2017-03-16] MEDS ORDERED: FAMOTIDINE 20 MG TAB PO SCH (21:00)
== END 2017-03-16 19:51 | disposition home or self-care (01) ==
LOC: NEPE 16:54 → NEDA 23:24 → INTOOBSV 23:24 → NEDA 03-15 01:34 → NEDH 03-15 04:08 → NEPHCDU 03-15 12:13
PROVIDERS: ADMIT Internal Medicine; ATTEND Internal Medicine
DX: C71.9 Malignant neoplasm of brain, unspecified (principal); R47.01 Aphasia; M79.89 Other specified soft tissue disorders; G93.6 Cerebral edema; G93.89 Other specified disorders of brain; E11.9 Type 2 diabetes mellitus without complications; G62.9 Polyneuropathy, unspecified; E78.00 Pure hypercholesterolemia, unspecified; I10 Essential (primary) hypertension; I69.351 Hemiplegia and hemiparesis following cerebral infarction affecting right dominant side; Z86.718 Personal history of other venous thrombosis and embolism; Z92.3 Personal history of irradiation; Z79.4 Long term (current) use of insulin
CPT/HCPCS: 70450; 70553; 80053; 82948; 83735; 83880; 85025; 85610; 85730; 93971; 96372; 96374; 96376; 97163; 99285; A9579; G0378; G8987; G8988; J1100; J1815; J8540